=== PATIENT | female | born 1960 | race Caucasian/White ===

== ENCOUNTER 2016-07-19 02:30 | Observation (INO) | payer BC ==
[~2016-07-19] VITALS: Ht 167.6 cm; Wt 116.0 kg
[~2016-07-19 02:30] MED LIST: OXYC1TAB3
--- NOTE | 2016-07-19 03:12 | EMERGENCY ROOM VISIT NOTE ---
History Report prepared by Luis: Dominic Peng Under the Supervision of: Dr. Emily Ontiveros D.O. First contact with patient: 03:02 Chief Complaint: VOMITING Stated Complaint: NAUSEA AND PAIN Nursing Triage Summary: Triage Notes: Patient c/o n/v that began around 2200 last PM. History of Present Illness The patient is a 56 year old female who presents to the Emergency Room with complaints of recurrent vomiting for the past two days. The episodes of nausea & vomiting or preceded by waxing & waning left flank pain. The patient had resolution of her symptoms until 2200 last night. The patient denies pain with urination or diarrhea. Her pain is a similar sensation to past kidney stones. The patient has a history of lithotripsy and follows up with [facility]. Source of History: patient Onset: two days Position: other (GI) Quality: other (vomiting) Timing: other (recurrent) Associated Symptoms: + nausea, No diarrhea, No urinary symptoms Review of Systems See HPI for pertinent positives & negatives. A total of 10 systems reviewed and were otherwise negative. Past Medical & Surgical Medical Problems: (1) Acute cholecystitis Surgical Problems: (1) H/O lithotripsy Family History No pertinent family history Social History Smoking Status: Never Smoker Marital Status: Housing Status: lives with family Current/Historical Medications No Active Prescriptions or Reported Meds Allergies Coded Allergies: No Known Allergies (Verified , 07/19/16) Physical Exam Vital Signs Date Time Temp Pulse Resp B/P Pulse Ox O2 Delivery O2 Flow Rate FiO2 07/19/16 07:37 73 16 154/86 95 Room Air 07/19/16 06:11 79 16 146/93 98 Room Air 07/19/16 03:18 66 18 162/89 97 Room Air 07/19/16 02:34 37.0 69 18 190/114 96 Room Air Physical Exam HEENT: Head - normocephalic and atraumatic Pupils are equal, round, and reactive to light. Extraocular eye muscles are intact, and sclera are anicteric. Nose - moist nasal mucosa without discharge. Mouth - moist buccal mucosa. Oropharynx is nonerythematous and there is no tonsillar exudate or edema noted. Neck: Supple; no JVD, nuchal rigidity, cervical lymphadenopathy. Heart: Regular rate and rhythm. There is a normal S1 and S2 with no murmurs, clicks, or gallops appreciated. Lungs: Clear to auscultation bilaterally with no wheezes, rales, or rhonchi. Abdomen: Soft, completely nontender, nondistended, with good bowel sounds. There are no palpable pulsatile masses or hepatosplenomegaly. There is no guarding, rigidity, or rebound noted. Extremities: No evidence of cyanosis, clubbing, or edema. There are easily palpable peripheral pulses. Skin: warm and dry with good turgor and no rashes. Medical Decision & Procedures ER Provider Diagnostic Interpretation: CT results as stated below per my review and radiologist interpretation: CT ABDOMEN & PELVIS: No urolithiasis. No hydronephrosis. Prominent gallbladder wall edema. No calcified gallstone. Findings raise suspicion for cholecystitis. Correlate with symptoms and consider right upper quadrant ultrasound for further evaluation. No biliary dilation. Liver pancreas spleen and adrenals are unremarkable. Colonic diverticulosis without evidence of diverticulitis. No free fluid. No free air. The bowel is normal caliber. Appendix is normal. Radiologist Martin Sun MD Right upper quadrant ultrasound: Pending Laboratory Results 07/19/16 03:05 Red Blood Count 4.88, Mean Corpuscular Volume 87.3, Mean Corpuscular Hemoglobin 30.1, Mean Corpuscular Hemoglobin Concent 34.5, Mean Platelet Volume 9.1, Neutrophils (%) (Auto) 86.8, Lymphocytes (%) (Auto) 8.2, Monocytes (%) (Auto) 3.8, Eosinophils (%) (Auto) 0.7, Basophils (%) (Auto) 0.2, Neutrophils # (Auto) 8.20, Lymphocytes # (Auto) 0.78, Monocytes # (Auto) 0.36, Eosinophils # (Auto) 0.07, Basophils # (Auto) 0.02 07/19/16 03:05 Test 07/19/16 03:05 07/19/16 04:15 White Blood Count 9.46 K/uL (4.8-10.8) Red Blood Count 4.88 M/uL (4.2-5.4) Hemoglobin 14.7 g/dL (12.0-16.0) Hematocrit 42.6 % (37-47) Mean Corpuscular Volume 87.3 fL (80-100) Mean Corpuscular Hemoglobin 30.1 pg (25-34) Mean Corpuscular Hemoglobin Concent 34.5 g/dl (32-36) Platelet Count 328 K/uL (130-400) Mean Platelet Volume 9.1 fL (7.4-10.4) Neutrophils (%) (Auto) 86.8 % Lymphocytes (%) (Auto) 8.2 % Monocytes (%) (Auto) 3.8 % Eosinophils (%) (Auto) 0.7 % Basophils (%) (Auto) 0.2 % Neutrophils # (Auto) 8.20 K/uL (1.4-6.5) Lymphocytes # (Auto) 0.78 K/uL (1.2-3.4) Monocytes # (Auto) 0.36 K/uL (0.11-0.59) Eosinophils # (Auto) 0.07 K/uL (0-0.5) Basophils # (Auto) 0.02 K/uL (0-0.2) RDW Standard Deviation 42.2 fL (36.4-46.3) RDW Coefficient of Variation 13.1 % (11.5-14.5) Immature Granulocyte % (Auto) 0.3 % Immature Granulocyte # (Auto) 0.03 K/uL (0.00-0.02) Anion Gap 6.0 mmol/L (3-11) Est Creatinine Clear Calc Drug Dose 79.3 ml/min Estimated GFR () 71.9 Estimated GFR (Non- 62.1 BUN/Creatinine Ratio 15.2 (10-20) Calcium Level 8.7 mg/dl (8.5-10.1) Total Bilirubin 0.4 mg/dl (0.2-1) Direct Bilirubin < 0.1 mg/dl (0-0.2) Aspartate Amino Transf (AST/SGOT) 15 U/L (15-37) Alanine Aminotransferase (ALT/SGPT) 27 U/L (12-78) Alkaline Phosphatase 92 U/L (45-117) Total Protein 7.8 gm/dl (6.4-8.2) Albumin 3.7 gm/dl (3.4-5.0) Hepatitis C Antibody Screen NEG (NEG) Urine Color YELLOW Urine Appearance CLEAR (CLEAR) Urine pH 6.5 (4.5-7.5) Urine Specific [place] 1.021 (1.000-1.030) Urine Protein NEG (NEG) Urine Glucose (UA) NEG (NEG) Urine Ketones NEG (NEG) Urine Occult Blood NEG (NEG) Urine Nitrite NEG (NEG) Urine Bilirubin NEG (NEG) Urine Urobilinogen NEG (NEG) Urine Leukocyte Esterase NEG (NEG) Laboratory results per my review. Medications Administered Medications (Trade) Dose Ordered Sig/Maurice Route Start Time Stop Time Status Last Admin Dose Admin Sodium Chloride (Nss 1000ml) 1,000 ml @ 999 mls/hr Q1H1M STAT IV 07/19/16 03:14 07/19/16 04:14 DC 07/19/16 03:20 999 MLS/HR Ondansetron HCl (Zofran Inj) 4 mg NOW STAT IV 07/19/16 03:14 07/19/16 03:15 DC 07/19/16 03:19 4 MG Procedure Medications administered include Zofran IV and NSS IV. ED Course 0305: Past medical records reviewed. The patient was evaluated in room A4b. A complete history and physical exam was performed. IV lock was established. 0314: Zofran 4 mg IV, NSS 1000 ml @ 999 mls/hr. 0450: The patient appears more comfortable. She is heading to CT scan now. 0600: The patient is comfortable. I reviewed laboratory studies and CT findings with the patient. She will soon go for ultrasound. 0700: The patient was signed out to Dr. Recinos at shift change. Medical Decision The patient is a 56 year old female who presents to the ED with vomiting. Differential diagnosis includes kidney stone, obstructive uropathy, colitis, diverticulitis, pyelonephritis. Laboratory interpretation: No leukocytosis, stable H&H, normal renal function, glucose 132, normal LFTs. Normal urinalysis. This is a 56-year-old female patient presents to the emergency department with left flank pain and vomiting. Patient states that the onset of nausea and vomiting was very sudden and 2 days ago. She then noticed some intermittent episodes of left flank discomfort. The symptoms seem to have subsided until they returned again tonight. The patient explains that she had similar symptoms with previous kidney stones. Urinalysis was obtained and was negative for blood, however the patient stated that she remain concerned about a kidney stone. She went for CT scan of the abdomen/pelvis which showed no evidence of a kidney stone but there was some concern for acute cholecystitis. The patient will go for an ultrasound of the gallbladder to confirm this. I reexamined the patient at this time. She has no reproducible discomfort in the right upper quadrant of the abdomen. The case was signed out to Dr. Recinos at change of shift. Impression Primary Impression: Flank pain Additional Impression: Vomiting Scribe Attestation The scribe's documentation has been prepared under my direction and personally reviewed by me in its entirety. I confirm that the note above accurately reflects all work, treatment, procedures, and medical decision making performed by me. Departure Information Dispostion Still a Patient Prescriptions No Active Prescriptions or Reported Meds Referrals Pretty Higuera M.D. (PCP) Patient Instructions My [facility] Problem Qualifiers
[2016-07-19] MEDS ORDERED: ONDANSETRON INJ 2 MG/ML 2 ML VIAL IV STA (03:14)
[2016-07-19] MEDS ORDERED: SODIUM CHLORIDE 0.9% 1000ML 1,000 ML IV STA (03:14)
[2016-07-19 03:24] LABS: BASO % 0.2 %; BASO ABS # 0.02 K/uL (0-0.2); COMPLETE YES; EOS % 0.7 %; HEMATOCRIT 42.6 % (37-47); IG% 0.3 %; LYMPH % 8.2 %; LYMPH ABS # 0.78 K/uL (1.2-3.4); MEAN CELL VOLUME 87.3 fL (80-100); MEAN CORPUSCULAR HEMOGLOBIN 30.1 pg (25-34); MEAN CORPUSCULAR HGB CONC 34.5 g/dl (32-36); MEAN PLATELET VOLUME 9.1 fL (7.4-10.4); MONO % 3.8 %; NEUT % 86.8 %; PLATELET COUNT 328 K/uL (130-400); RED BLOOD COUNT 4.88 M/uL (4.2-5.4); WHITE BLOOD COUNT 9.46 K/uL (4.8-10.8)
[2016-07-19 03:40] LABS: ALT/SGPT 27 U/L (12-78); AST/SGOT 15 U/L (15-37); BLOOD UREA NITROGEN 15 mg/dl (7-18); BUN/CREATININE RATIO 15.2 (10-20); CALCIUM 8.7 mg/dl (8.5-10.1); CARBON DIOXIDE 29 mmol/L (21-32); CHLORIDE 109 mmol/L (98-107); GLUCOSE 132 mg/dl (70-99); POTASSIUM 3.7 mmol/L (3.5-5.1); SODIUM 144 mmol/L (136-145)
[2016-07-19 03:43] LABS: ALKALINE PHOSPHATASE 92 U/L (45-117)
[2016-07-19 04:28] LABS: URINE APPEARANCE CLEAR (CLEAR); URINE BILIRUBIN NEG (NEG); URINE COLOR YELLOW; URINE NITRITE NEG (NEG); URINE PH 6.5 (4.5-7.5); URINE SPECIFIC GRAVITY 1.021 (1.000-1.030); UROBILINOGEN NEG (NEG)
[2016-07-19 04:32] LABS: MANUAL MICROSCOPIC REQUIRED? NO; REVIEW REQ? NO
--- NOTE | 2016-07-19 07:33 | DIAGNOSTIC IMAGING REPORT ---
ABDOMEN AND PELVIS CT WITHOUT CONTRAST CT DOSE: 2272.16 mGy.cm HISTORY: Flank pain eval for left sided stone TECHNIQUE: Multiaxial CT images of the abdomen and pelvis were performed without the use of intravenous and oral contrast according to the standard department stone protocol. COMPARISON STUDY: 03/17/2016 FINDINGS: Lung bases are clear. Liver spleen and pancreas are unremarkable. Moderate edematous change of the gallbladder wall. No well-defined gallstones. Bowel pattern overall is nonobstructive. Mild sigmoid diverticulosis. No evidence for acute diverticulitis. Bladder is midline. IMPRESSION: 1. No evidence for an obstructing urinary tract calculus. 2. Moderate gallbladder wall edema. Right upper quadrant ultrasonography is suggested to exclude cholecystitis Electronically signed by: Emiliano Oliveira M.D. 07/19/2016 7:31 AM Dictated Date/Time: 07/19/2016 7:29 AM
--- NOTE | 2016-07-19 07:37 | DIAGNOSTIC IMAGING REPORT ---
ULTRASOUND RIGHT UPPER QUADRANT ABDOMEN CLINICAL HISTORY: Right upper quadrant abdominal pain. COMPARISON STUDY: Abdominal CT dated 07/19/2016. TECHNIQUE: Real-time, grayscale, and color flow sonography of the right upper quadrant of the abdomen was performed. Images are reviewed in the transverse and longitudinal planes. FINDINGS: Liver: The liver is enlarged and demonstrates heterogeneously increased echotexture consistent with severe hepatic steatosis. Note that this degrades acoustic penetration of the liver. There is no intrahepatic biliary ductal dilatation. The main portal vein is patent. Gallbladder: Shadowing calcified gallstones are identified. The gallbladder wall is thickened measuring up to 6 mm. A sonographic Walsh's sign is reportedly absent. No pericholecystic fluid is seen. The common bile duct measures up to 0.5 cm in diameter. Pancreas: Visualized portions of the pancreatic head and body are normal in appearance. Right kidney: Survey images of the right kidney demonstrate cortical atrophy. There is no hydronephrosis. Ascites: None. IMPRESSION: 1. There are calcified gallstones and the gallbladder wall is markedly thickened. When correlated with today's abdominal CT scan the findings are consistent with acute cholecystitis. Surgical consultation is advised. 2. Hepatomegaly and severe hepatic steatosis. Electronically signed by: Balwinder Boyce M.D. 07/19/2016 7:36 AM Dictated Date/Time: 07/19/2016 7:33 AM
--- NOTE | 2016-07-19 08:47 | History and Physical ---
History & Physical Date & Time of Service: Jul 19, 2016 at 08:40 Chief Complaint: Nausea And Pain Primary Care Physician: Pretty Hiugera M.D. History of Present Illness Source: patient, family The patient is a 56 year old female who presents to the Emergency Room with complaints of recurrent vomiting for the past two days. The episodes of nausea & vomiting or preceded by waxing & waning left flank pain. The patient had resolution of her symptoms until 2200 last night. The patient denies pain with urination or diarrhea. Her pain is a similar sensation to past kidney stones. The patient has a history of lithotripsy and follows up with [facility]. CT scan and U/S showed acute cholecystitis. Past Medical/Surgical History Surgical Problems: (1) H/O lithotripsy Status: Chronic Family History No pertinent family history Social History Smoking Status: Never Smoker Smokeless Tobacco Use: No Alcohol Use: none Drug Use: none Marital Status: Multi-Drug Resistant Organisms History of MDRO: No Allergies Coded Allergies: No Known Allergies (Verified , 07/19/16) Home Medications No Active Prescriptions or Reported Meds Review of Systems Constitutional: No chills, No fatigue, No fever, No problem reported, No sweats , No weakness, No weight loss Eyes: No diplopia, No discharge, No eye pain, No problem reported, No redness, No worsening of vision ENT: No dental problems, No hearing loss, No nasal symptoms, No problem reported, No sore throat, No tinnitus, No trouble swallowing, No unusual epistaxis Respiratory: No cough, No dyspnea at rest, No dyspnea on exertion, No hemoptysis, No problem reported, No shortness of breath, No sputum, No wheezing Cardiovascular: No PND, No chest pain, No claudication, No edema, No orthopnea , No palpitations, No problem reported Abdomen: + nausea, + pain, + vomiting Musculoskeletal: No calf pain, No joint pain, No muscle pain, No problem reported, No swelling Genitourinary - Female: No dysmenorrhea, No dysuria, No hematuria, No menorrhagia, No metrorrhagia, No , No problem reported, No rash, No urinary frequency, No urinary incontinence, No urinary retention, No urinary urgency, No vaginal bleeding, No vaginal discharge, No vaginal itching, No vulvodynia Neurologic: No balance problems, No memory loss, No numbness/tingling, No paralysis, No problem reported, No vertigo, No weakness Psychiatric: No anhedonism, No anxiety, No depression symptoms, No insomnia, No problem reported, No substance abuse Endocrine: No excessive thirst, No excessive urination, No fatigue, No problem reported Hematologic / Lymphatic: No abnormal bleeding/bruising, No clotting problems, No night sweats, No problem reported, No swollen lymph nodes Physical Exam Vital Signs Date Time Temp Pulse Resp B/P Pulse Ox O2 Delivery O2 Flow Rate FiO2 07/19/16 07:37 73 16 154/86 95 Room Air 07/19/16 06:11 79 16 146/93 98 Room Air 07/19/16 03:18 66 18 162/89 97 Room Air 07/19/16 02:34 37.0 69 18 190/114 96 Room Air General Appearance: WD/WN Head: normocephalic Eyes: normal inspection ENT: normal ENT inspection Neck: supple, no JVD Respiratory/Chest: chest non-tender, lungs clear, normal breath sounds Cardiovascular: regular rate, rhythm, no edema, no gallop, no JVD Abdomen/GI: normal bowel sounds, non tender, soft, no organomegaly Back: normal inspection Extremities/Musculoskelatal: normal inspection, no calf tenderness, normal capillary refill Neurologic/Psych: electromatic typist II-XII nml as tested, no motor/sensory deficits, alert Diagnostics Laboratory Results Results Past 24 Hours Test 07/19/16 03:05 07/19/16 04:15 Range/Units White Blood Count 9.46 4.8-10.8 K/uL Red Blood Count 4.88 4.2-5.4 M/uL Hemoglobin 14.7 12.0-16.0 g/dL Hematocrit 42.6 37-47 % Mean Corpuscular Volume 87.3 80-100 fL Mean Corpuscular Hemoglobin 30.1 25-34 pg Mean Corpuscular Hemoglobin Concent 34.5 32-36 g/dl Platelet Count 328 130-400 K/uL Mean Platelet Volume 9.1 7.4-10.4 fL Neutrophils (%) (Auto) 86.8 % Lymphocytes (%) (Auto) 8.2 % Monocytes (%) (Auto) 3.8 % Eosinophils (%) (Auto) 0.7 % Basophils (%) (Auto) 0.2 % Neutrophils # (Auto) 8.20 1.4-6.5 K/uL Lymphocytes # (Auto) 0.78 1.2-3.4 K/uL Monocytes # (Auto) 0.36 0.11-0.59 K/uL Eosinophils # (Auto) 0.07 0-0.5 K/uL Basophils # (Auto) 0.02 0-0.2 K/uL RDW Standard Deviation 42.2 36.4-46.3 fL RDW Coefficient of Variation 13.1 11.5-14.5 % Immature Granulocyte % (Auto) 0.3 % Immature Granulocyte # (Auto) 0.03 0.00-0.02 K/uL Sodium Level 144 136-145 mmol/L Potassium Level 3.7 3.5-5.1 mmol/L Chloride Level 109 98-107 mmol/L Carbon Dioxide Level 29 21-32 mmol/L Anion Gap 6.0 3-11 mmol/L Blood Urea Nitrogen 15 7-18 mg/dl Creatinine 1.00 0.60-1.20 mg/dl Est Creatinine Clear Calc Drug Dose 79.3 ml/min Estimated GFR () 71.9 Estimated GFR (Non- 62.1 BUN/Creatinine Ratio 15.2 10-20 Random Glucose 132 70-99 mg/dl Calcium Level 8.7 8.5-10.1 mg/dl Total Bilirubin 0.4 0.2-1 mg/dl Direct Bilirubin < 0.1 0-0.2 mg/dl Aspartate Amino Transf (AST/SGOT) 15 15-37 U/L Alanine Aminotransferase (ALT/SGPT) 27 12-78 U/L Alkaline Phosphatase 92 45-117 U/L Total Protein 7.8 6.4-8.2 gm/dl Albumin 3.7 3.4-5.0 gm/dl Urine Color YELLOW Urine Appearance CLEAR CLEAR Urine pH 6.5 4.5-7.5 Urine Specific [place] 1.021 1.000-1.030 Urine Protein NEG NEG Urine Glucose (UA) NEG NEG Urine Ketones NEG NEG Urine Occult Blood NEG NEG Urine Nitrite NEG NEG Urine Bilirubin NEG NEG Urine Urobilinogen NEG NEG Urine Leukocyte Esterase NEG NEG Diagnostic Radiology CT scan-IMPRESSION: 1. No evidence for an obstructing urinary tract calculus. 2. Moderate gallbladder wall edema. Right upper quadrant ultrasonography is suggested to exclude cholecystitis U/S-IMPRESSION: 1. There are calcified gallstones and the gallbladder wall is markedly thickened. When correlated with today's abdominal CT scan the findings are consistent with acute cholecystitis. Surgical consultation is advised. 2. Hepatomegaly and severe hepatic steatosis. Impression Assessment and Plan IMP Acute cholecystitis Plan, admitted to hospital. IV fluid, antibiotic, control pain, pt will have laparoscopic cholecystectomy, possible open or cholangiogram tomorrow, D/W benefits, risks and alternatives of the procedure, the risks- infection, bleeding, injury CBD, Bowel, AL DVT, , incisional hernia, pt understood, she and her agree with the plan. ASA Classification: ASA Class II VTE Prophylaxis VTE Risk Assessment Done? Y/N: Yes Risk Level: Low Given or contraindicated: SCD's
[2016-07-19] MEDS ORDERED: OXYCODONE/ACETAMINOPHEN 5-325 TAB PO PRN (09:00)
[2016-07-19] MEDS ORDERED: HYDROmorphone INJ 0.5 MG/0.5 ML SYR IV PRN (09:00)
[2016-07-19] MEDS ORDERED: ONDANSETRON INJ 2 MG/ML 2 ML VIAL IV PRN (09:00)
[2016-07-19] MEDS ORDERED: IV FLUIDS COMPLETED PRN (09:15)
[2016-07-19 09:38] VITALS: BP_SYST 145; BP_SYST 170; BP_DIAS 86; BP_DIAS 94; PULSE 60; PULSE 63; TEMP 36.4; O2SAT 97; Ht 167.6 cm; Wt 116.0 kg
[2016-07-19] MEDS: D5W AND 1/2NSS + 20MEQ KCL 1,000 ML IV SCH ×2 (10:29→22:42)
[2016-07-19] MEDS: PIPERACILL/TAZOBAC IV 3.375 GM in DEXTROSE 5% 100ML 100 ML IV SCH ×3 (11:45→23:36)
--- NOTE | 2016-07-19 13:45 | Anesthesiology Progress Note ---
Pre-OP Anesthesia Assessment Date of Note Jul 19, 2016. Review patient information reviewed, chart reviewed, labs reviewed, acceptable for surgery Notes I saw this pt for pre-op eval for lap alex by Dr. Thornton tomorrow. She presented w/ N/V and was found on CT and U/S to have acute cholecystitis. Imaging also showed severe hepatomegaly and hepatic steatosis. LFTs were normal. The pt says she now feels fine. PMH includes just morbid obesity and kidney stones. She said she was noted to have a heart murmur many years ago and had an echo which was normal. PSH of just lithotripsy. No anesthetic complications noted. She takes no meds at home. She is able to achieve > 4 METs w/out CP or SOB. On exam , she is sitting up in bed in NAD, awake and alert. Airway exam shows full dentition w/ MP3 but is otherwise reassuring. Lungs clear. 2/6 systolic murmur loudest at RUSB but heard throughout. Afebrile w/ stable vitals. Labs normal. She's appropriate for surgery. I consented her for GA. She'll be NPO after midnight. I've ordered a pre-op EKG given her age > 50 and the need for GA. I don't think she requires echo eval of the murmur pre-op given her reasonable functional capacity w/out symptoms and since it is highly unlikely that it would change our management.
[2016-07-19 15:04] VITALS: BP 154/90; PULSE 69; TEMP 36.9; O2SAT 96
--- NOTE | 2016-07-19 15:37 | DIAGNOSTIC IMAGING REPORT ---
CHEST 1 VW FRONT-NOT PORTABLE CLINICAL HISTORY: pre-op COMPARISON STUDY: 02/13/2010 FINDINGS: The bones soft tissues and hemidiaphragms are normal. The cardiomediastinal silhouette is normal. The lungs are clear. The pulmonary vasculature is normal. IMPRESSION: Negative chest. Electronically signed by: Emiliano Oliveira M.D. 07/19/2016 3:35 PM Dictated Date/Time: 07/19/2016 3:32 PM
[2016-07-19 15:50] VITALS: O2SAT 96
[2016-07-19 23:11] VITALS: BP 137/86; PULSE 62; TEMP 36.8; O2SAT 93
[2016-07-20] VITALS (7 sets, daily range): BP systolic 133–178; BP diastolic 75–103; PULSE 65–96; TEMP 36.6–36.8; O2SAT 92–96
[2016-07-20] MEDS: PIPERACILL/TAZOBAC IV 3.375 GM in DEXTROSE 5% 100ML 100 ML IV SCH (05:32)
[2016-07-20 07:45] LABS: BASO % 0.4 %; BASO ABS # 0.02 K/uL (0-0.2); COMPLETE YES; EOS % 3.9 %; HEMATOCRIT 37.3 % (37-47); IG% 0.2 %; LYMPH % 30.5 %; LYMPH ABS # 1.56 K/uL (1.2-3.4); MEAN CELL VOLUME 86.3 fL (80-100); MEAN CORPUSCULAR HEMOGLOBIN 28.7 pg (25-34); MEAN CORPUSCULAR HGB CONC 33.2 g/dl (32-36); MEAN PLATELET VOLUME 8.8 fL (7.4-10.4); MONO % 11.7 %; NEUT % 53.3 %; PLATELET COUNT 280 K/uL (130-400); RED BLOOD COUNT 4.32 M/uL (4.2-5.4); WHITE BLOOD COUNT 5.12 K/uL (4.8-10.8)
[2016-07-20 08:22] LABS: ALB/GLOB RATIO 0.8 (0.9-2); BUN/CREATININE RATIO 10.1 (10-20); CALCIUM 8.2 mg/dl (8.5-10.1); CREATININE 0.84 mg/dl (0.60-1.20); POTASSIUM 3.5 mmol/L (3.5-5.1)
[2016-07-20] MEDS: D5W AND 1/2NSS + 20MEQ KCL 1,000 ML IV SCH ×2 (10:36→23:32)
[2016-07-20] MEDS ORDERED: FENTANYL CITRATE INJ 50 MCG/1 ML 2 ML VIAL ONE ×2 (10:38)
[2016-07-20] MEDS ORDERED: LARYING-O-JET KIT (LTA) EXT ONE ×2 (10:38)
[2016-07-20] MEDS ORDERED: MIDAZOLAM HCL 1 MG/ML 2ML VIAL ONE (10:38)
[2016-07-20] MEDS ORDERED: GLYCOPYRROLATE INJ 0.2 MG/ML VIAL ONE (10:38)
[2016-07-20] MEDS ORDERED: ONDANSETRON INJ 2 MG/ML 2 ML VIAL ONE (10:38)
[2016-07-20] MEDS ORDERED: DEXAMETHASONE SOD INJ 4 MG/ML VIAL ONE (10:38)
[2016-07-20] MEDS ORDERED: ROCURONIUM BROMIDE 10 MG/ML 5 ML VIAL ONE (10:38)
[2016-07-20] MEDS ORDERED: KETOROLAC TROMETHAMINE 30 MG/ML VIAL ONE (10:38)
[2016-07-20] MEDS ORDERED: PROPOFOL IV EMULSION 10 MG/ML 20 ML VIAL IV ONE (10:38)
[2016-07-20] MEDS ORDERED: LIDOCAINE HCL 2% 2 ML VIAL (20MG/ML) ONE (10:38)
[2016-07-20] MEDS ORDERED: NEOSTIGMINE METHYLSULFATE 5 MG/5 ML SYR ONE (10:38)
[2016-07-20] MEDS ORDERED: LIDOCAINE HCL 1% 20 ML VIAL ONE (10:49)
[2016-07-20] MEDS ORDERED: BACITRACIN OINT 15 GM TUBE ONE (10:50)
[2016-07-20] MEDS ORDERED: BUPIVACAINE 0.5 % 5 MG/1 ML MPF 30ML VIAL ONE (10:50)
--- NOTE | 2016-07-20 11:02 | Surgery Progress Note ---
Surgery Progress Note Date of Service Jul 20, 2016. Subjective Post OP Day: HD # 1 + pain controlled, No SOB, No chest pain, No complaints, No feeling well, No nausea, No vomiting Occasional RUQ pain Objective Vital Signs: Date Time Temp Pulse Resp B/P Pulse Ox O2 Delivery O2 Flow Rate FiO2 07/20/16 07:30 Room Air 07/20/16 07:13 36.6 67 18 133/75 94 Room Air 07/19/16 23:35 Room Air 07/19/16 23:11 36.8 62 18 137/86 93 Room Air 07/19/16 15:50 96 Room Air 07/19/16 15:04 36.9 69 16 154/90 96 Room Air General Appearance: WD/WN, no apparent distress Head: normocephalic, atraumatic Neck: trachea midline Respiratory/Chest: no respiratory distress, no accessory muscle use Abdomen: non distended, soft, + tenderness (RUQ) Laboratory Results: Results Past 24 Hours Test 07/20/16 07:04 Range/Units White Blood Count 5.12 4.8-10.8 K/uL Red Blood Count 4.32 4.2-5.4 M/uL Hemoglobin 12.4 12.0-16.0 g/dL Hematocrit 37.3 37-47 % Mean Corpuscular Volume 86.3 80-100 fL Mean Corpuscular Hemoglobin 28.7 25-34 pg Mean Corpuscular Hemoglobin Concent 33.2 32-36 g/dl Platelet Count 280 130-400 K/uL Mean Platelet Volume 8.8 7.4-10.4 fL Neutrophils (%) (Auto) 53.3 % Lymphocytes (%) (Auto) 30.5 % Monocytes (%) (Auto) 11.7 % Eosinophils (%) (Auto) 3.9 % Basophils (%) (Auto) 0.4 % Neutrophils # (Auto) 2.73 1.4-6.5 K/uL Lymphocytes # (Auto) 1.56 1.2-3.4 K/uL Monocytes # (Auto) 0.60 0.11-0.59 K/uL Eosinophils # (Auto) 0.20 0-0.5 K/uL Basophils # (Auto) 0.02 0-0.2 K/uL RDW Standard Deviation 43.4 36.4-46.3 fL RDW Coefficient of Variation 13.6 11.5-14.5 % Immature Granulocyte % (Auto) 0.2 % Immature Granulocyte # (Auto) 0.01 0.00-0.02 K/uL Sodium Level 139 136-145 mmol/L Potassium Level 3.5 3.5-5.1 mmol/L Chloride Level 106 98-107 mmol/L Carbon Dioxide Level 24 21-32 mmol/L Anion Gap 9.0 3-11 mmol/L Blood Urea Nitrogen 9 7-18 mg/dl Creatinine 0.84 0.60-1.20 mg/dl Est Creatinine Clear Calc Drug Dose 94.5 ml/min Estimated GFR () 88.8 Estimated GFR (Non- 76.6 BUN/Creatinine Ratio 10.1 10-20 Random Glucose 108 70-99 mg/dl Calcium Level 8.2 8.5-10.1 mg/dl Total Bilirubin 0.7 0.2-1 mg/dl Aspartate Amino Transf (AST/SGOT) 17 15-37 U/L Alanine Aminotransferase (ALT/SGPT) 29 12-78 U/L Alkaline Phosphatase 77 45-117 U/L Total Protein 6.6 6.4-8.2 gm/dl Albumin 2.9 3.4-5.0 gm/dl Globulin 3.7 2.5-4.0 gm/dl Albumin/Globulin Ratio 0.8 0.9-2 Lipase 147 73-393 U/L Assessment & Plan Acute Cholecystitis - vitals stable - afebrile - No leukocytosis - LFTs within normal limits PLAN: Plan for OR today for laparoscopic Cholecystectomy Continue current orders and NPO until surgery
[2016-07-20] MEDS ORDERED: CEFAZOLIN IV 2,000 MG/60 ML D5W IV ONE (12:12)
--- NOTE | 2016-07-20 12:14 | History & Physical Bridge Note ---
H&P Re-Evaluation Bridge Note: I have examined the patient, reviewed the History & Physical and in the interval since the performance of the History & Physical I have noted the following changes of clinical significance: No changes noted
[2016-07-20] MEDS ORDERED: LABETALOL HCL IV 5 MG/ML 20ML IV PRN (12:30)
[2016-07-20] MEDS ORDERED: ONDANSETRON INJ 2 MG/ML 2 ML VIAL IV PRN ×2 (12:30→13:15)
[2016-07-20] MEDS ORDERED: KETOROLAC TROMETHAMINE 30 MG/ML VIAL IV. PRN ×2 (12:30→13:15)
[2016-07-20] MEDS ORDERED: HYDROmorphone INJ 1 MG/ML SYR IV PRN (12:30)
[2016-07-20] MEDS ORDERED: ATROPINE SULFATE 0.1 MG/ML 5ML SYR IV PRN ×2 (12:30→13:15)
[2016-07-20] MEDS ORDERED: HYDROmorphone INJ 2 MG/ML SYR/VIAL IV PRN (13:15)
[2016-07-20] MEDS ORDERED: EpHEDrine SULFATE INJ 50 MG/ML AMP ONE (13:36)
--- NOTE | 2016-07-20 14:25 | [facility] Post Operative Brief Note ---
Immediate Operative Summary Operative Date Jul 20, 2016. Pre-Operative Diagnosis Acute Cholecystitis cholithiasis Post-Operative Diagnosis Same as Preop Procedure(s) Performed Laparoscopic Cholecystectomy Surgeon Dr. Thornton Irs Agent Surgeon(s) None Estimated Blood Loss 10 ml Findings acute cholecystitis, cholelithiasis Fluids (cc crystalloids) 900ml Specimens A. Gall Bladder Drains none Anesthesia general Complication(s) None Disposition Recovery Room / PACU
[2016-07-20] MEDS ORDERED: OXYC-57 PO ×2 (14:28→15:47)
--- NOTE | 2016-07-20 14:34 | Discharge Instructions ---
Discharge Instructions Admission Reason for Admission: Acute Cholecystitis Discharge Discharge Diagnosis / Problem: S/P laparoscopic cholecystectomy Discharge Goals Goal(s): Decrease discomfort, Improve function Activity Recommendations Activity Limitations: per Instructions/Follow-up section Lifting Limitations: no more than 25 pounds Exercise/Sports Limitations: gradually increase as tolerated May Resume Sexual Activity: when tolerated Shower/Bathe: may shower/bathe in 3 days Driving or Machine Use: resume 3 days after discharge . Instructions / Follow-Up Instructions / Follow-Up keep the dressing on for 4 days, she can take a shower on 07/24/2016. no driving while taking pain medicine.follow up 1 week, . Current Hospital Diet Patient's current hospital diet: Clear Liquid Diet Discharge Diet Recommended Diet: Regular Diet Procedures Procedures Performed: Laparoscopic Cholecystectomy Pending Studies Studies pending at discharge: no Medical Emergencies . Who to Call and When: Medical Emergencies: If at any time you feel your situation is an emergency, please call 911 immediately. . Non-Emergent Contact Non-Emergency issues call your: Primary Care Provider Contact Number: [phone] Call Non-Emergent contact if: you have a fever, temperature is above 100.5, your pain is not controlled, your pain is worsening, wound has increased drainage, wound has increased redness . "Provider Documentation" section prepared by Rashid Thornton. VTE Core Measure Inpt VTE Proph given/why not?: SCD's
--- NOTE | 2016-07-20 14:51 | Anesthesiology Progress Note ---
Anesthesia Post Op Note Date & Time Jul 20, 2016 at 14:51 Vital Signs Pain Intensity: 0 Vital Signs Past 12 Hours Date Time Temp Pulse Resp B/P Pulse Ox O2 Delivery O2 Flow Rate FiO2 07/20/16 14:40 37.0 59 14 146/85 99 Nasal Cannula 3 07/20/16 14:30 60 14 144/84 99 Mask 10 07/20/16 14:20 71 14 128/92 96 Mask 10 07/20/16 14:16 37.2 61 14 135/84 92 Mask 10 07/20/16 07:30 Room Air 07/20/16 07:13 36.6 67 18 133/75 94 Room Air Notes Mental Status: alert / awake / arousable, participated in evaluation Pt Amnestic to Procedure: Yes Nausea / Vomiting: adequately controlled Pain: adequately controlled Airway Patency, RR, SpO2: stable & adequate BP & HR: stable & adequate Hydration State: stable & adequate Anesthetic Complications: no major complications apparent
--- NOTE | 2016-07-20 14:59 | OPERATIVE REPORT ---
DATE OF OPERATION: 07/20/2016 PREOPERATIVE DIAGNOSIS: Acute cholecystitis, cholelithiasis. POSTOPERATIVE DIAGNOSIS: Same. PROCEDURE: Laparoscopic cholecystectomy. SURGEON: Dr. Rashid Thornton. ANESTHESIA: General. ESTIMATED BLOOD LOSS: About 10 mL. FINDING: Acute cholecystitis with gallstones. COMPLICATIONS: None. IV FLUIDS: 900 mL. INDICATIONS FOR THE PROCEDURE: This is a 56-year-old female who presented to the ED did with a 1-day history of right upper quadrant pain and the patient had ultrasound showing acute cholecystitis, cholelithiasis and patient required to do laparoscopic cholecystectomy, possible open, possible cholangiogram. I did talk to the patient about the benefit and risk alternate procedure. I indicated the risks may include but not limited such as bleeding, infection, injury to common bile duct, injury to bowel, myocardial infarction, stroke, DVT, even , incisional hernia. The patient understands. She signed informed consent and I answered all questions. OPERATION AND FINDINGS: DETAILS OF PROCEDURE: We brought the patient to the OR, put the patient in the supine position. The patient received SCD on bilateral legs to prevent DVT. Also, the patient received 2 grams Ancef IV for prophylactic antibiotic. The patient received general anesthesia without difficulty. The abdomen was prepped and draped in routine sterile fashion. After a timeout, I injected local anesthesia by using 1% lidocaine mixed with 0.5% Marcaine around the umbilical area, made a small incision just above umbilical, opened fascia and opened peritoneum under direct vision. I put a Mirza trocar in, connected to CO2 to create pneumoperitoneum. Flow rate at DVT is 6 liter per minute. Pressure not more than 14 mmHg. Once we get a nice pneumoperitoneum and then we put another 3.5 mm trocar on the right upper quadrant. Once all trocars in I put 10 mm camera in, looked around the abdomen shows no more findings on the stomach, small bowel, large bowel, liver; however, there was some omentum covering the gallbladder showing gallbladder wall with significant inflammation and edema, wall thickening confirming the patient had acute cholecystitis. Once all trocars in we put grasper in and hold the base of the gallbladder, put direction to the diaphragm and put another grasper in to hold the pouch over the gallbladder, put the latter to expose the triangle of Calot. The cystic duct was identified and mobilized and I put two 5 mm metal clips on the proximal cystic duct, one on the distal cystic duct then I used scissor transection cystic duct. Rechecked and no leak, no bleeding and the cystic artery was identified and mobilized. I put two 5 mm metal clips on the proximal cystic, 1 on the distal cystic artery and used scissor transection cystic artery. Rechecked no active bleeding. Then I used Bovie to take down the gallbladder from the liver bed without difficulty. Then I put catch bag in to pull out the gallbladder through the catch bag. Then we reinserted Mirza trocar in connected to CO2 to create pneumoperitoneum. Again looked around the abdomen, no active bleeding, no bile leak from the liver bed. Then we removed all trocar under direct vision. No active bleeding from trocar sites. Then we closed the umbilical incision, fascial layer by using #1 Vicryl [id number] x2, closed subcutaneous layer by using 2-0 Vicryl, closed skin by using 4-0 Vicryl. Then another 3.5 mm trocar site closed skin by using 4-0 Vicryl. We put the dressing on. The patient tolerated the procedure well. All the instrument, needle and sponge counts correct x2 at the end of the case. The specimen sent to pathology. Before and after the procedure, I did talk to the patient about the postop care instructions. The patient understands. I attest to the content of the Intraoperative Record and any orders documented therein. Any exceptio ns are noted below.
--- NOTE | 2016-07-20 15:22 | DISCHARGE SUMMARY ---
DATE OF DISCHARGE: 07/20/2016. ADMITTING DIAGNOSIS: Acute cholecystitis, cholelithiasis. POSTOPERATIVE DIAGNOSIS: Same. OPERATION: Laparoscopic cholecystectomy. SURGEON: Dr. Rashid Thornton. DETAILS OF DISCHARGE SUMMARY: This is 56-year-old female who presented to the ED with right upper quadrant pain. The patient had ultrasound showed acute cholecystitis, cholelithiasis. The patient was admitted to the hospital overnight and given IV fluids, IV antibiotics and comfort for the pain. The patient feels better in the morning. We decided to take the patient to the OR. In the OR we did laparoscopic cholecystectomy. The patient tolerated the procedure well. After the procedure the patient was transferred to the recovery room in stable condition. PHYSICAL EXAMINATION: VITAL SIGNS: Temperature is 36.6, heart rate 67, respiratory rate 18, blood pressure 136/75. O2 saturation 94% on room air. GENERAL: The patient is alert, awake, oriented x3. HEAD, EYES, EARS, NOSE, AND THROAT: Within normal limitation. NECK: No JVD. CHEST: Bilateral lung sounds clear. NEUROLOGIC EXAMINATION: Intact. HEART: Normal S1, S2. No murmur. ABDOMEN: Soft, no distention. All dressings intact. Good comfort incision pain. EXTREMITIES: No edema. The patient will discharge home once patient meets discharge criteria. I gave the patient postop care instructions. The patient understands. We will follow up the patient in 1 week.
[2016-07-20] MEDS ORDERED: NURSING VERBAL MED ORDER ONE (23:45)
[2016-07-21 03:36] VITALS: BP 127/81; PULSE 74; TEMP 36.8; O2SAT 91
[2016-07-21] MEDS ORDERED: CEFAZOLIN IV 2,000 MG/60 ML D5W IV ONE (06:00)
[2016-07-21 08:06] VITALS: BP 137/87; PULSE 66; TEMP 36.8; O2SAT 93
--- NOTE | 2016-07-21 08:50 | Surgery Progress Note ---
Surgery Progress Note Date of Service Jul 21, 2016. Subjective Post OP Day: 1 (s/p laparoscopic cholecystectomy) + diet (tolerating full liquids), + feeling well, + pain controlled, No SOB, No ambulating, No chest pain, No complaints, No nausea, No vomiting had nausea last evening, now resolved and feeling much better Objective Vital Signs: Date Time Temp Pulse Resp B/P Pulse Ox O2 Delivery O2 Flow Rate FiO2 07/21/16 08:06 36.8 66 19 137/87 93 Room Air 07/21/16 03:36 36.8 74 17 127/81 91 Room Air 07/20/16 23:50 36.8 82 16 134/84 92 Room Air 07/20/16 23:30 Room Air 07/20/16 19:00 36.8 83 18 136/86 95 07/20/16 17:04 36.8 72 18 178/102 95 Room Air 07/20/16 16:19 36.7 69 166/99 07/20/16 15:55 65 18 162/103 96 Nasal Cannula 2.0 07/20/16 15:20 Nasal Cannula 2.0 07/20/16 15:20 Nasal Cannula 2.0 07/20/16 15:00 36.8 96 16 155/84 96 Nasal Cannula 2.0 07/20/16 14:50 63 14 147/89 97 Nasal Cannula 3 07/20/16 14:40 37.0 59 14 146/85 99 Nasal Cannula 3 07/20/16 14:30 60 14 144/84 99 Mask 10 07/20/16 14:20 71 14 128/92 96 Mask 10 07/20/16 14:16 37.2 61 14 135/84 92 Mask 10 General Appearance: WD/WN, no apparent distress Head: normocephalic, atraumatic Respiratory/Chest: no respiratory distress, no accessory muscle use Abdomen: non distended, soft, + tenderness (very mild tenderness, appropriate post-op) Incision(s): clean (dressings clean and dry) Extremities: normal range of motion Assessment & Plan POD # 1 s/p laparoscopic cholecystectomy - avss - nausea resolved - abdominal pain minimal, controlled with oral Percocet - tolerating diet - ambulating and urinating without difficulty PLAN: Discharge today Discharge instructions given Follow-up in surgical office in 1 week, call [phone] Acute Cholecystitis - vitals stable - afebrile - No leukocytosis - LFTs within normal limits PLAN: Plan for OR today for laparoscopic Cholecystectomy Continue current orders and NPO until surgery
[2016-07-21 09:47] VITALS: BP 137/87; PULSE 66; TEMP 36.8; O2SAT 93
== END 2016-07-21 10:33 | disposition home or self-care (01) ==
LOC: ENRESERVTM → ENRESERVDT → C.EDB 02:31 → C.MSW 08:51
PROVIDERS: ADMIT Surgery; ATTEND Surgery
DX: K80.00 Calculus of gallbladder with acute cholecystitis without obstruction (principal)

== ENCOUNTER 2024-04-12 20:21 | Inpatient (IN) ==
[2024-04-12 21:12] LABS: iSTAT Creatinine 2.6 mg/dl (0.6-1.3); iSTAT Hemoglobin 11.6 g/dl (12.0-16.0); iSTAT Ionized Calcium 1.14 mmol/l (1.12-1.32); iSTAT Potassium 3.1 mmol/L (3.3-5.0)
--- NOTE | 2024-04-12 21:19 | Emergency Department Note ---
History of Present Illness General Chief complaint: Illness Stated complaint: NOT EATING, DIGESTIVE PROBLEM, JUST OUT OF SURG Time Seen by Provider: 04/12/24 20:49 Source: patient and family (Daughter at bedside) History of Present Illness Provider complaint: Abdominal pain 63-year-old female presents emergency department for abdominal pain. Patient is a stroke patient and has difficulty communicating so daughters given primarily the history. Daughter reports that the patient has been having lower abdominal pain. She reports that 3 weeks ago she had open heart surgery for valve replacement. States that She she has been having increasing abdominal pain and is often able to eat or drink. No fevers. No chest pain or difficulty breathing. Daughter also reports that the patient is complaining of hemorrhoidal discomfort. Home Medications Medication Instructions Recorded Confirmed Type amlodipine 5 mg tablet 5 mg PO DAILY #30 tabs 07/07/23 Rx Allergies Allergy/AdvReac Type Severity Reaction Status Date / Time No Known Allergies Allergy Unknown Verified 07/07/23 20:52 Past Med/Surg History Problem List (Updated 04/12/24 @ 23:29 by Aly Lyle MD) IFRAH (acute kidney injury) (Acute) Elevated troponin (Acute) Allergy to lisinopril H/O lithotripsy (Chronic) Acute cholecystitis Medical History Heart murmur Hypertension Cholecystitis Surgical History Heart valve replaced Hx laparoscopic cholecystectomy Social History Smoking Status: Never smoker Preferred Language: Italian Feels Safe at Home: Yes Physical Exam Vital Signs Vital Signs - 24 hr 04/12/24 20:25 04/12/24 20:41 04/12/24 21:08 Temperature 36.2 C L Temperature Source Temporal Artery Scan Pulse Rate 93 H 92 H Respiratory Rate 18 Respiratory Effort / Characteristics Non-Labored Blood Pressure 109/74 Blood Pressure Mean 85 Pulse Oximetry 97 96 Oxygen Delivery Method Room Air Room Air Sepsis Recent Fever Within 48 Hours No Sepsis New/Unexplained Change in Mental Status No Sepsis Action Taken by Nursing No Action Required 04/12/24 22:15 Temperature Temperature Source Pulse Rate 78 Respiratory Rate 18 Respiratory Effort / Characteristics Blood Pressure 136/72 Blood Pressure Mean 93 Pulse Oximetry 97 Oxygen Delivery Method Sepsis Recent Fever Within 48 Hours Sepsis New/Unexplained Change in Mental Status Sepsis Action Taken by Nursing Physical Exam HENT: Exam performed. -Head: Normocephalic and atraumatic. EYES: Conjunctivae and EOM are normal.Right eye exhibits no discharge. Left eye exhibits no discharge. No scleral icterus. NECK: Normal range of motion. Neck supple. No JVD present. No tracheal deviation and normal range of motion present. CV: Normal rate, regular rhythm, normal heart sounds and intact distal pulses. There is no peripheral edema. Palpable radial pulses bue. PULM/CHEST: Effort normal and breath sounds normal. No respiratory distress. No stridor. no wheezes.no rales. -Chest Wall: Surgical incision over the anterior chest wall is clean and dry with no surrounding erythema or discharge. ABD: The abdomen is soft. Ecchymosis over the anterior abdominal wall. There is tenderness to palpation of the left lower quadrant right lower quadrant and suprapubic area. There is no rebound, no guarding. NEURO: Motor and sensation grossly intact. Course Course 2048: The patient was evaluated in room C5. A complete history and physical exam was performed Cardiac monitoring: An order was placed for continuous cardiac monitoring. The monitor shows a rate of 90 with sinus rhythm interpreted by sd 2328: Vital signs stable. Labs are significant for an IFRAH. CT abdomen pelvis is unremarkable. Patient will be admitted for IFRAH. [facility] hospitalist team will be made aware. Administered Medications Sodium Chloride (Nss) 1,000 mls @ 80 mls/hr IV .[id number] Stop: 04/13/24 23:14 Last Admin: 04/12/24 23:22 Dose: 80 mls/hr Documented By: RHINA Discontinued Medications Sodium Chloride (Nss) 1,000 mls @ 999 mls/hr IV .[id number] ONE Stop: 04/12/24 22:01 Last Infusion: 04/12/24 23:02 Dose: Infused Documented By: Admin: 04/12/24 21:45 Dose: 999 mls/hr Documented By: RHINA Medical Decision Making Laboratory Data Attestation: I reviewed the patient's lab results. 04/12/24 20:51 04/12/24 20:51 Lab Results 04/12/24 04/12/24 04/12/24 Range/Units 20:51 21:00 21:47 WBC 9.54 (4.8-10.8) K/ul RBC 4.37 (4.20-5.40) M/uL Hgb 12.3 (12.0-16.0) g/dl POC Hgb 11.6 L (12.0-16.0) g/dl Hct 37.3 (37.0-47.0) % POC Hct 34 L (37-47) % MCV 85.4 (80.0-100.0) fL MCH 28.1 (25.0-34.0) pg MCHC 33.0 (32.0-36.0) g/dL RDW Std Deviation 44.4 (36.4-46.3) fL RDW Coeff of [place] 14.5 (11.5-14.5) % Plt Count 427 H (130-400) K/uL MPV 9.5 (9.4-12.4) fL Immature Gran % (Auto) 0.3 % Neut % (Auto) 72.0 % Lymph % (Auto) 16.7 % Bland % (Auto) 7.7 % Eos % (Auto) 2.7 % Baso % (Auto) 0.6 % Neut # (Auto) 6.87 H (1.40-6.50) K/uL Lymph # (Auto) 1.59 (1.20-3.40) K/uL Bland # (Auto) 0.73 H (0.11-0.59) K/uL Eos # (Auto) 0.26 (0.00-0.50) K/uL Baso # (Auto) 0.06 (0.00-0.20) K/uL Immature Gran # (Auto) 0.03 (0.01-0.20) K/uL POC Sodium 141 (135-144) mmol/L Sodium 139 (136-145) mmol/L POC Potassium 3.1 L (3.3-5.0) mmol/L Potassium 3.0 L (3.5-5.1) mmol/L POC Chloride 101 (101-112) mmol/L Chloride 98 (98-107) mmol/L Carbon Dioxide 26 (21-32) mmol/L POC Total CO2 25 (24-31) mmol/L Anion Gap 15 H (3-11) POC Anion Gap 19.0 (16-25) mmol/L POC BUN 51 H (7-18) mg/dl BUN 56 H (6-23) mg/dl Creatinine 2.37 H (0.6-1.2) mg/dl POC Creatinine 2.6 H (0.6-1.3) mg/dl Est Cr Clr Drug Dosing 25.7 ml/min eGFR 22.20 BUN/Creatinine Ratio 23.6 H (10-20) Glucose 90 (70-99(Fasting)) mg/dl POC Glucose (other) 92 (70-99) mg/dl Calcium 10.2 (8.6-10.3) mg/dl POC Ioniz Calcium Arpan 1.14 (1.12-1.32) mmol/l Total Bilirubin 0.7 (0.2-1.0) mg/dl Direct Bilirubin 0.1 (0-0.2) mg/dl AST 21 (13-39) U/L ALT 18 (7-52) U/L Alkaline Phosphatase 110 H (34-104) U/L Total Protein 8.5 H (6.0-8.3) gm/dl Albumin 4.2 (3.4-5.0) gm/dl Lipase 79 (11-82) U/L Urine Color Yellow Urine Appearance Cloudy A (Clear) Urine pH 5.0 (4.5-7.5) Ur Specific [place] 1.022 (1.000-1.030) Urine Protein Trace H (Negative) Urine Glucose (UA) Negative (Negative) Urine Ketones 1+ H (Negative) Urine Blood Negative (Negative) Urine Nitrite Negative (Negative) Urine Bilirubin Negative (Negative) Urine Urobilinogen Negative (Negative) Ur Leukocyte Esterase 1+ H (Negative) Urine WBC (Auto) 6-10 H (0-5) /hpf Urine RBC (Auto) 3-5 H (0-2) /hpf U Hyaline Cast (Auto) 6-10 H (0-2) /lpf U Epithel Cells (Auto) 11-20 H (0-2) /hpf Urine Bacteria (Auto) 2+ H (None Seen) Ur Renal Epithelial Cell Present A (None Presnt) /lpf Hyaline Casts P (None Presnt) /lpf Imaging Data Radiologist's Impression: Abdomen/Pelvis CT 04/12/24 21:01 Exam(s): CT ABDOMEN + PELVIS Without Contrast EXAM: CT Abdomen and Pelvis Without Intravenous Contrast CLINICAL HISTORY: Reason for exam: abd pain. TECHNIQUE: Axial computed tomography images of the abdomen and pelvis without intravenous contrast. CTDI is 27.73 mGy and DLP is 1374.6 mGy-cm. Automated exposure control was utilized for the study. A dose lowering technique was utilized adhering to the principles of ALARA. COMPARISON: 07/19/16 FINDINGS: Lung bases: Unremarkable. Heart: Previous sternotomy and aortic valve replacement. No cardiomegaly. ABDOMEN: Liver: Unremarkable. Gallbladder and bile ducts: Cholecystectomy. No ductal dilation. Pancreas: Unremarkable. No ductal dilation. Spleen: Unremarkable. No splenomegaly. Adrenals: Unremarkable. No mass. Kidneys and ureters: Unremarkable. No obstructing stones. No hydronephrosis. Stomach and bowel: No bowel obstruction. Diverticulosis without diverticulitis. Moderate rectal stool. PELVIS: Appendix: No evidence of appendicitis. Bladder: Decompressed urinary bladder. No stones. Reproductive: Unremarkable as visualized. ABDOMEN and PELVIS: Intraperitoneal space: Unremarkable. No free air, significant free fluid, or fluid collection. Bones/joints: See above. Soft tissues: Unremarkable. Vasculature: Unremarkable. No abdominal aortic aneurysm. Lymph nodes: Unremarkable. No enlarged lymph nodes. IMPRESSION: Moderate rectal stool. Otherwise, no acute findings. Electronically signed by: Enzo Trejo M.D. 04/12/24 23:08 PM [facility] Narrative 2049: The patient was evaluated in room C5. A complete history and physical exam was performed Cardiac monitoring: An order was placed for continuous cardiac monitoring. The monitor shows a rate of 90 with sinus rhythm interpreted by sd 2328: Vital signs stable. Labs are significant for an IFRAH. CT abdomen pelvis is unremarkable. Patient will be admitted for IFRAH. [facility] hospitalist team will be made aware. Impression & Plan IFRAH (acute kidney injury) Discharge Plan Visit Data Chief Complaint: Illness Stated Complaint: NOT EATING, DIGESTIVE PROBLEM, JUST OUT OF SURG ED Provider: Aly Lyle Discharge Problem: IFRAH (acute kidney injury) Patient Disposition: Admitted As Inpatient Forms Stand Alone Forms: My [facility] Prescriptions Prescriptions: No Action amlodipine 5 mg tablet 5 mg PO DAILY Qty: 30 0RF Referrals Referrals: Pretty Higuera MD [Primary Care Provider] -
[2024-04-12 21:36] LABS: Basophils # (auto) 0.06 K/uL (0.00-0.20); Basophils % (auto) 0.6 %; Eosinophils # (auto) 0.26 K/uL (0.00-0.50); Eosinophils % (auto) 2.7 %; Hematocrit (blood only) 37.3 % (37.0-47.0); Hemoglobin 12.3 g/dl (12.0-16.0); Immature Granulocytes # (auto) 0.03 K/uL (0.01-0.20); Immature Granulocytes % (auto) 0.3 %; Lymphocytes # (auto) 1.59 K/uL (1.20-3.40); Lymphocytes % (auto) 16.7 %; Mean Corpuscular Hemoglobin 28.1 pg (25.0-34.0); Mean Corpuscular Volume 85.4 fL (80.0-100.0); Mean Platelet Volume 9.5 fL (9.4-12.4); Monocytes # (auto) 0.73 K/uL (0.11-0.59); Monocytes % (auto) 7.7 %; Neutrophils # (auto) 6.87 K/uL (1.40-6.50); Platelet Count 427 K/uL (130-400); RDW Coefficient of Variation 14.5 % (11.5-14.5); RDW Standard Deviation 44.4 fL (36.4-46.3); Red Blood Count 4.37 M/uL (4.20-5.40); White Blood Count 9.54 K/ul (4.8-10.8)
[2024-04-12 21:41] LABS: Albumin Level 4.2 gm/dl (3.4-5.0); BUN Creatinine Ratio 23.6 (10-20); Bilirubin Direct 0.1 mg/dl (0-0.2); Bilirubin,Total 0.7 mg/dl (0.2-1.0); Calcium 10.2 mg/dl (8.6-10.3); Creatinine Clr Calc Pharmacy 25.7 ml/min; Total Protein 8.5 gm/dl (6.0-8.3)
[2024-04-12] MEDS: SODIUM CHLORIDE 0.9% 1,000 ML IV ONE (21:45)
[2024-04-12 22:17] LABS: Appearance Urine Cloudy (Clear); Bilirubin Urine Negative (Negative); Blood Urine Negative (Negative); Color Urine Yellow; Glucose Urine UA Negative (Negative); Ketones Urine 1+ (Negative); Leukocyte Esterase Urine 1+ (Negative); Nitrite Urine Negative (Negative); Protein Urine Trace (Negative); Specific Gravity Urine 1.022 (1.000-1.030); Urobilinogen Urine Negative (Negative)
[2024-04-12 22:28] LABS: Bacteria Urine Automated 2+ (None Seen); Hyaline Casts Urine P /lpf (None Presnt)
[2024-04-12 22:29] LABS: Renal Epithelial Cells Urine Present /lpf (None Presnt)
--- NOTE | 2024-04-12 23:09 | CT Scan Report ---
Exam(s): CT ABDOMEN + PELVIS Without Contrast EXAM: CT Abdomen and Pelvis Without Intravenous Contrast CLINICAL HISTORY: Reason for exam: abd pain. TECHNIQUE: Axial computed tomography images of the abdomen and pelvis without intravenous contrast. CTDI is 27.73 mGy and DLP is 1374.6 mGy-cm. Automated exposure control was utilized for the study. A dose lowering technique was utilized adhering to the principles of ALARA. COMPARISON: 07/19/16 FINDINGS: Lung bases: Unremarkable. Heart: Previous sternotomy and aortic valve replacement. No cardiomegaly. ABDOMEN: Liver: Unremarkable. Gallbladder and bile ducts: Cholecystectomy. No ductal dilation. Pancreas: Unremarkable. No ductal dilation. Spleen: Unremarkable. No splenomegaly. Adrenals: Unremarkable. No mass. Kidneys and ureters: Unremarkable. No obstructing stones. No hydronephrosis. Stomach and bowel: No bowel obstruction. Diverticulosis without diverticulitis. Moderate rectal stool. PELVIS: Appendix: No evidence of appendicitis. Bladder: Decompressed urinary bladder. No stones. Reproductive: Unremarkable as visualized. ABDOMEN and PELVIS: Intraperitoneal space: Unremarkable. No free air, significant free fluid, or fluid collection. Bones/joints: See above. Soft tissues: Unremarkable. Vasculature: Unremarkable. No abdominal aortic aneurysm. Lymph nodes: Unremarkable. No enlarged lymph nodes. IMPRESSION: Moderate rectal stool. Otherwise, no acute findings. Electronically signed by: Enzo Trejo M.D. 04/12/24 23:08 PM
[2024-04-12] MEDS: SODIUM CHLORIDE 0.9% 1,000 ML IV SCH (23:22)
--- NOTE | 2024-04-12 23:38 | History & Physical Report ---
Date of Service April 12, 2024 Assessment & Plan (1) IFRAH (acute kidney injury): Plan: Prior normal creatinine. Significant elevation at 2.37. Likely pre-renal IFRAH in the setting of decreased PO intake 2/2 constipation. Given 1L NS in the ED. Started on mIVF @ 80 mL/hr. Ordered urine lytes. With renal epithelial cells on UA would check urine cytology. Anticipate normalization after rehydration. If urine cytology abnormal or patient not responding to fluids would consider nephrology consult. Irizarry for Is/Os AM BMP f/u urine studies encourage PO avoid nephrotoxic agents (2) Constipation: Plan: Patient constipated likely in the setting of recent open heart surgery. No BM in the last 10 days. Has been taking Miralax and colace. Schedule Miralax 17 gm BID and colace. Glycerin suppository x 1. stool count force fluids bowel regimen - goal 1-2 soft formed BM daily (3) Asymptomatic bacteriuria: Plan: UA likely contaminated. Asymptomatic. If patient develops signs or symptoms of UTI would repeat UA and treat. Defer on abx at this time. (4) Heart valve replaced: Plan: Continue atorvastatin. Cautiously continue ASA as patient with recent AVR. monitor creatinine closely. (5) Hypokalemia: Plan: Replete Plan GERD: continue pantoprazole Code status: full DVT ppx: SCDs, ambulation FENGI: regular Dispo: MedSurg History of Present Illness Chief Complaint: abdominal pain Primary Care Provider: Pretty Higuera MD 63 y/o female with a PMHx of CVA with subsequent expressive aphasia and recent open heart surgery with aortic valve replacement presents with abdominal pain. Patient having rectal pain/discomfort and significant constipation. Has not had a BM in 10 days. Has been taking miralax and colace without improvement in symptoms. No actual abdominal pain. No nausea or vomiting. No dysuria or urinary symptoms. No fevers or chills. No CP or SOB. No calf pain or swelling. Has lost about 7 pounds since having her aortic valve replaced. Allergies Allergy/AdvReac Type Severity Reaction Status Date / Time No Known Allergies Allergy Unknown Verified 07/07/23 20:52 Home Medications Medication Instructions Recorded Confirmed Type aspirin 81 mg tablet,delayed 81 mg PO QAM 04/12/24 04/13/24 History release atorvastatin 80 mg tablet 80 mg PO HS 04/12/24 04/13/24 History pantoprazole 40 mg tablet,delayed 40 mg PO QAM 04/12/24 04/13/24 History release multivitamin 1 tab PO HS 04/13/24 04/13/24 History Past Med/Surg History Problem List (Updated 04/13/24 @ 17:48 by Noemi Ayoub PA-C) History of CVA with residual deficit Asymptomatic bacteriuria Hypokalemia Constipation IFRAH (acute kidney injury) (Acute) Elevated troponin (Acute) Allergy to lisinopril H/O lithotripsy (Chronic) Acute cholecystitis Medical History Heart murmur Hypertension Cholecystitis Surgical History Heart valve replaced Hx laparoscopic cholecystectomy Social History Smoking Status: Never smoker Hx Alcohol Use: No Hx Substance Use: No Preferred Language: Niuean Communication Ability: Effective Hearing Aid Mechanic Required: No Beliefs That Will Affect Care: None Current Living Situation: Family Other Information That Helps Us Care for You: No Feels Safe at Home: Yes Safety Concerns: Feels Safe At This Time Assistive Devices: None Review of Systems 2 Review of Systems: See HPI Physical Exam 2 Physical Exam: Gen: well appearing patient in NAD HEENT: AT NC MMM Resp: CTAB no wheezing no increased work of breathing CV: RRR no m/r/g clinically well perfused, no edema, no calf tenderness Abd: +BS, soft, non-tender, non-distended MSK: no obvious deformities Skin: no rashes or bruising Neuro: alert and oriented Psych: appropriate mood and affect Results & Data Results & Data Vital Signs (Past 12 Hours) Vital Signs Temp Pulse Resp BP Pulse Ox O2 Del Method 04/12/24 22:15 78 18 136/72 97 04/12/24 21:08 96 Room Air 04/12/24 20:41 92 H 04/12/24 20:25 36.2 C L 93 H 18 109/74 97 Room Air Laboratory Results 04/12/24 20:51 04/12/24 20:51 Diagnostic Findings Abdomen/Pelvis CT 04/12/24 21:01 FINDINGS: Lung bases: Unremarkable. Heart: Previous sternotomy and aortic valve replacement. No cardiomegaly. ABDOMEN: Liver: Unremarkable. Gallbladder and bile ducts: Cholecystectomy. No ductal dilation. Pancreas: Unremarkable. No ductal dilation. Spleen: Unremarkable. No splenomegaly. Adrenals: Unremarkable. No mass. Kidneys and ureters: Unremarkable. No obstructing stones. No hydronephrosis. Stomach and bowel: No bowel obstruction. Diverticulosis without diverticulitis. Moderate rectal stool. PELVIS: Appendix: No evidence of appendicitis. Bladder: Decompressed urinary bladder. No stones. Reproductive: Unremarkable as visualized. ABDOMEN and PELVIS: Intraperitoneal space: Unremarkable. No free air, significant free fluid, or fluid collection. Bones/joints: See above. Soft tissues: Unremarkable. Vasculature: Unremarkable. No abdominal aortic aneurysm. Lymph nodes: Unremarkable. No enlarged lymph nodes. IMPRESSION: Moderate rectal stool. Otherwise, no acute findings. Supervising Physician Co-Signing Physician Notes Attending addendum: I have physically seen this patient, have supervised the medical residents activities, and agree with the H&P unless as otherwise noted. Assessment and Plan: Acute kidney injury- Creatinine 2.37 on admission, with baseline 0.78 Likely secondary to prerenal state associated with fluid loss associated with decreased oral intake due to constipation Status post 1 L normal saline bolus from the ED Placed on NSS at 80 mL/h x 1 additional liter Renal epithelial cells noted on urinalysis, will order urine cytology Repeat BMP in the a.m. Constipation- Should improve with rehydration with IV fluids Encourage oral fluid intake as well Bowel regimen as noted Asymptomatic bacteriuria- Follow urine culture and sensitivity Low threshold to start antibiotics Hypokalemia- Potassium 3.0 and placing with IV fluids as noted Magnesium level ordered and pending Repeat laboratories in the a.m. with BMP Remaining orders and notations as noted Resident Activity Tracking Resident Involvement: Resident Care Provided Care Provided: Adult [facility]
[2024-04-13] MEDS ORDERED: ALUMINUM/MAGNESIUM SUSP 30 ML UDC PO PRN (00:34)
[2024-04-13] MEDS ORDERED: ONDANSETRON INJ 2 MG/ML 2 ML VIAL IV PRN (00:34)
[2024-04-13] MEDS: POTASSIUM CHLORIDE CRTAB 20 MEQ TABCR PO STA (00:56)
[2024-04-13] MEDS: POLYETHYLENE (MIRALAX) 17 GM PACK PO ONE (00:56)
[2024-04-13] MEDS: GLYCERIN ADULT 12 SUPP/BOX SUPP PR ONE (01:04)
[2024-04-13 07:04] LABS: Hematocrit (blood only) 31.2 % (37.0-47.0); Hemoglobin 10.1 g/dl (12.0-16.0); Mean Corpuscular Hemoglobin 27.8 pg (25.0-34.0); Mean Corpuscular Hgb Conc 32.4 g/dL (32.0-36.0); Mean Platelet Volume 9.6 fL (9.4-12.4); Platelet Count 326 K/uL (130-400); RDW Coefficient of Variation 14.5 % (11.5-14.5); RDW Standard Deviation 44.6 fL (36.4-46.3); Red Blood Count 3.63 M/uL (4.20-5.40); White Blood Count 8.61 K/ul (4.8-10.8)
[2024-04-13 07:21] LABS: Albumin Level 3.4 gm/dl (3.4-5.0); BUN Creatinine Ratio 29.5 (10-20); Bilirubin,Total 0.5 mg/dl (0.2-1.0); Calcium 8.8 mg/dl (8.6-10.3); Globulin 3.5 gm/dl (2.5-4.0); Potassium 3.6 mmol/L (3.5-5.1); Total Protein 6.9 gm/dl (6.0-8.3)
[2024-04-13] MEDS: ACETAMINOPHEN 325 MG TAB PO PRN (08:32)
[2024-04-13] MEDS: ASPIRIN 81 MG ECTAB PO SCH (08:33)
[2024-04-13] MEDS: PANTOprazole 40 MG TAB PO SCH (08:33)
[2024-04-13] MEDS: AMIODARONE 200 MG TAB PO SCH (08:33)
[2024-04-13] MEDS: POLYETHYLENE (MIRALAX) 17 GM PACK PO SCH (09:00)
[2024-04-13] MEDS: SENNA 8.6 MG TAB PO SCH (09:01)
--- NOTE | 2024-04-13 14:02 | Hospitalist Progress Note ---
Date of Service April 13, 2024 Assessment & Plan (1) Constipation: Plan: Presented with rectal pain in setting of significant constipation. Bowel regimen at home unsuccessful - Recent open heart surgery at [facility] ~3 weeks ago. Patient reports no BM since surgery - CT A/P showed moderate rectal stool - Well-tolerating regular diet - Bowel regimen: Scheduled MiraLax BID Scheduled Senna daily Suppository x 2 Milk of molasses enema x 1 - Encourage po fluids - 2 reported brown moderate BM so far - Goal is 1-2 soft formed BM daily (2) IFRAH (acute kidney injury): Plan: Prior normal creatinine, with significant elevation at 2.37 on admission - Likely pre-renal IFRAH in the setting of decreased PO intake secondary to constipation - UA with renal epithelial cells --> urine cytology NEGATIVE for high-grade urothelial carcinoma - Cr improved to 1.66 after IV fluids on admission - Encourage PO fluids - Avoid nephrotoxic agents - Monitor BMP with AM labs (3) Asymptomatic bacteriuria: Plan: UA likely contaminated as more epis than WBCs. 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 Will HOLD now due to IFRAH (6) Hypertension: Plan: -HOLD olmesartan 40 mg daily for IFRAH Need to find out if still on Toprol XL 25mg hs as was prescribed in 03/15 Plan Ordered enema and suppository Reviewed PCP notes CODE STATUS: Full code Admission and Anticipated Discharge Date Admission Date: April 12, 2024 Supervising Physician Co-Signing Physician Notes DAVID Supervision Note: I did not personally see or examine the patient today, but I verified all carlos points of DAVID Ayoub's assessment and plan with the following exceptions/addition s: changes made as above Subjective Patient seen and evaluated at bedside. She reports cramping rectal pain. She did have 2 episodes of loose brown bowel movements. Patient reports that about 3 weeks ago, she had open heart surgery for aortic valve replacement at [facility]. She does not think she had a bowel movement since the surgery. She denies any abdominal pain, nausea, or vomiting. Denies any other acute concerns. We discussed that narcotic pain medication will make her constipation worse, and we need to get her bowel regimen optimized. Patient understanding. No additional complaints or concerns at this time. Physical Exam Physical Exam: General: No acute distress, nondiaphoretic, well-developed, well-nourished. Skin: The skin was without rashes, erythema, edema, or bruising. Cardiac: Regular rate and rhythm without murmurs gallops or rubs. Pulm: Clear to auscultation bilaterally without wheezes, rales or rhonchi. No respiratory distress. 100% on room air. Abdominal: Soft, nontender, nondistended. Bowel sounds present. : Irizarry catheter draining katarzyna colored urine. Neuro: A&O x3. No focal neurological deficits. Results & Data Results & Data Vital Signs (Past 12 Hours) Vital Signs Temp Pulse Resp BP Pulse Ox O2 Del Method 04/13/24 07:58 97.7 F 78 16 132/82 98 Room Air Laboratory Results Reviewed CBC Reviewed CMP Reviewed UA PG Care Time/CCT Total # of Minutes Spent Total Time Spent with Patient: Total time spent is greater than 50% in coordination of care (as documented) at patient's floor/unit and/or counseling patient: Coding Level of Care Code 96655 SUB INP/OBS CARE 3/50MIN Diagnoses Constipation K59.00 IFRAH (acute kidney injury) N17.9 Asymptomatic bacteriuria R82.71 Heart valve replaced Z95.2 History of CVA with residual deficit I69.30 Hypertension I10 Hypertension type: unspecified (6) Hypertension Hypertension type: unspecified Qualified Code(s): I10 - Essential (primary) hypertension
[2024-04-13] MEDS: bisacodyL 10 MG SUPP PR STA (18:05)
[2024-04-13] MEDS: ATORVASTATIN 40 MG TAB PO SCH (19:18)
[2024-04-13 19:23] VITALS: RESP 18
--- NOTE | 2024-04-13 20:14 | Billing Data ---
Date of Service April 13, 2024 Coding Level of Care Code 73577 INT INP/OBS CARE
--- OUTSIDE RECORDS SUMMARY | 2024-04-13 23:46 | External Medical Summary | Continuity of Care Document ---
Author Name Unknown Organization [address] A Address [facility] [place], [place] [id number] Care Team Providers Care Assistant Cross Country Coach Name Role Phone Pretty Higuera Primary Care Physician [phone] Encounter [facility] [id number] Date(s): 04/02/24 - 04/02/24 [facility] [address] [facility] - Specialties Entrance A, [address] [place] [phone] Encounter Diagnosis Aortic stenosis with bicuspid valve.(Discharge Diagnosis) - 03/30/24 Thoracic ascending aortic aneurysm(Discharge Diagnosis) - 03/30/24 Atrial fibrillation, permanent(Discharge Diagnosis) - 03/30/24 PFO (patent foramen ovale)(Discharge Diagnosis) - 03/30/24 Status post aortic valve replacement with tissue(Discharge Diagnosis) - 03/30/24 History of ascending aorta repair(Discharge Diagnosis) - 03/30/24 HTN (hypertension)(Discharge Diagnosis) - 03/30/24 Discharge Disposition: Home or Self Care Attending Physician: THEO Dickerson Michelle L Referring Physician: DO Cole Jason D Allergies, Adverse Reactions, Alerts Substance Criticality Severity Reaction Reaction Severity Status lisinopril 1 Active 1Cough Assessment and Plan Extracted from: Title:AVR/aortic aneurysm po st op Office Visit Note Author:THEO Dickerson Michelle L Date:04/02/24 1.Aortic stenosis with bic uspid valve. Status: chronic, improved after surgery 2.Status post aortic valve replacement with tissue Aortic valve replacement using biologic valve (25mm Inspiris) Prophylaxis againstinfectious endocarditisis reasonable before dental procedures that involve manipulation of gingival tissue, manipulation of the periapical region of teeth, or perforation of the oral mucosa in patientswithprosthetic materials used forcardiac valve repair or replacement.Maintenance of the best oral hygiene to minimizebacterialseedingis imperative. 3.Thoracic ascending aortic aneurysm Status: chronic, improved after surgery 4.History of ascending aorta repair Ascending aorta repair using 30mm Gelweave graft Medications reviewed, taking as prescribed. Continue to increase activity. Use ISB as instructed at discharge. Follow up with cardiology Dr. Cole on04/04/2024. Follow up at your primary care office withDr. Joseph 04/17/2024. Encouraged participation in cardiac rehab, beginning 6 weeks after surgery. Reminded patientno driving for at least 4 weeks after surgery andlifting restriction of no more than 10 pounds for 6 weeks after surgery and no more than 20 pounds for a total of 12 weeks after surgery. Continue to monitor vital signs, incision sitesand contact us with any issues. All questions satisfactorily answered and patientstated understanding of today's discussion. Follow up with CT surgery via telephone on 04/24/2024. 5.Atrial fibrillation, permanent Status: chronic, stable Left atrial ablation using Encompass clamp Left atrial appendage ligation using a 35mm AtriCure clip Continue amiodarone 200mg PO daily for onemonth as per Dr. Stern. Further management deferred to cardiology. 6.PFO (patent foramen ovale) Status: chronic, improved StatuspostPFO closure 7.HTN (hypertension) Status: chronic condition, stable/controlled Continued optimization of medications, lifestyle measures, weight loss (as appropriate) to achieve goal BP<130/80 mm/Hg. Further management deferred to cardiology and/or PCP. Immunizations Given and Recorded Vaccine Date Status Refusal Reason SARS-CoV-2 (COVID-19) mRNA BNT-162b2 vax 05/09/21 Recorded SARS-CoV-2 (COVID-19) mRNA BNT-162b2 vax 09/11/20 Recorded SARS-CoV-2 (COVID-19) mRNA BNT-162b2 vax 08/21/20 Recorded influenza virus vaccine, inactivated 01/30/20 Give n zoster vaccine, inactivated 03/14/19 Given zoster vaccine, inactivated 01/09/19 Given tetanus/diphtheria/pertuss, acel (Tdap) 07/23/ G iven Medications amiodarone 200 mg oral tablet Start: 03/24/24 11:04:00 AM EDT, 1 tab, PO, Daily, Disp# 30 tab, Refills: 0, Pharmacy: [facility] Start Date: 03/24/24 Stop Date: 04/23/24 Status: Ordered aspirin 81 mg oral delayed release tablet Start: 12/21/23 9:44:00 AM EDT, 1 tab, PO, Daily, Disp# 30 tab, Refills: 3, Pharmacy: [id number] Start Date: 12/21/23 Stop Date: 04/19/24 Status: Ordered atorvastatin 80 mg oral tablet Start: 12/21/23 9:45:00 AM EDT, 1 tab, PO, Daily, Disp# 30 tab, Refills: 3, Pharmacy: [id number] Start Date: 12/21/23 Stop Date: 04/19/24 Status: Ordered Multi Vitamin+ Start: 03/09/24 10:18:00 AM EDT, 1 tab, PO, qAM Start Date: 03/09/24 Status: Ordered Protonix 40 mg oral delayed release tablet Start: 03/24/24 11:04:00 AM EDT, 1 tab, PO, Daily, Disp# 30 tab, Refills: 0, Pharmacy: [facility] Start Date: 03/24/24 Stop Date: 04/23/24 Status: Ordered Tylenol 325 mg oral tablet Start: 03/24/24 11:04:00 AM EDT, 2 tab, PO, q8h Start Date: 03/24/24 Status: Ordered Mental Status 04/02/24 Barriers to Learning one year None evide nt Mandatory Health Literacy Documentation Yes Health Literacy Communication Barriers N ever Primary Language Eritrean Problem List Condition Confirmation Course Effective Dates Status Health St atus Informant Adult BMI 38.0-38.9 kg/sq m Confirmed 07/29/11 Active Thoracic ascending aortic aneurysm Confirmed Active Aortic aneurysm Confirmed Active Aortic valve stenosis Confirmed Active Aortic stenosis with bicuspid valve. Confirmed Active Bicuspid aortic valve Confirmed Active Stroke Confirmed Active Grade II diastolic dysfunction Confirmed Active Family history of melanoma 1 Confirmed Active GERD Confirmed 07/29/11 Active History of ascending aorta repair Confirmed Active Status post aortic valve replacement with tissue Confirmed Active HTN (hypertension) Confirmed Active Mild obstructive sleep apnea 2 Confirmed Active PFO (patent foramen ovale) Confirmed Active Atrial fibrillation, permanent Confirmed Active ROUTINE GENERAL MEDICAL EXAMINATION AT A HEALTH CARE FACILITY Confirmed Active Weight disorder Confirmed Active 1sister 2sleep study 2015 Diagnosis Diagnosis Type Effective Dates Health Status Clinical Service Informant Aortic stenosis with bicuspid valve. Discharge Diagnosis 03/30/24 Non-Specified Thoracic ascending aortic aneurysm Discharge Diagnosis 03/30/24 Non-Specified Atrial fibrillation, permanent Discharge Diagnosis 03/30/24 Non-Specified PFO (patent foramen ovale) Discharge Diagnosis 03/30/24 Non-Specified HTN (hypertension) Discharge Diagnosis 03/30/24 Non-Specified Status post aortic valve replacement with tissue Discharge Diagnosis 03/30/24 Non-Specified History of ascending aorta repair Discharge Diagnosis 03/30/24 Non-Specified Procedures Procedure Date Related Diagnosis Body Site Status Thrombectomy 12/15/23 Completed Mammogram 1 06/20/20 Completed Left knee x-ray 2 08/17/18 Complet ed Cholecystectomy 08/18/15 Completed Mammogram 3 08/14/15 Completed Full sleep study 4 08/13/15 Comple mayra DNS (deviated nasal septum) 5 07/24/15 Completed Mammogram 6 07/17/12 Completed D&C Completed Lithotripsy Completed 1ACR BI RADS Cat 1 NEGATIVE 2Minimal degenerative change. Trace joint effusion. No evidence for acute bony pathology. 3No malignancy. One year screening recommended. 4NovaSom - mild obstructive sleep apnea 5? 2009 6normal Vital Signs Most recent to oldest [Reference Range]: 1 Patient Weight 105 kg (04/02/24 10:37 AM) Heart Rate 64 bpm (04/02/24 10:37 AM) Respiratory Rate 18 br/min (04/02/24 10:37 AM) Blood Pressure 120/70mmHg (04/02/24 10:37 AM) Cuff Pulse Pressure 50 mmHg (04/02/24 10:37 AM) Social History Social History Type Response Smoking Status Never smoked cigaret mark Sex Female Sex Representation Female (finding) Implantable Device List Procedure Provider Procedure Date Device Type Site Unknown Unknown 03/19/24 Unknown Unknown Device Identifier Serial Number Lot or Batch Number Manufacturing Date Expiration Date Distinct Identification Code MRI Safety Implantable Status Assigning Authority Unknown Unknown [id number] Unknown 12/21/26 Unknown Unknown Active Unkno wn Unknown Unknown n/a Unknown 07/25/27 Unknown Unknown Active Unkno wn Unknown Unknown [id number] Unknown 11/19/26 Unknown Unknown Active Unknown Cardiac surgery Outpatient Note * THEO Dickerson, Danae Cantor: PERFORM, MODIFY, MODIFY Event Display: Cardiac Surgery Outpt Note Authored Date: Primary Care Provider MD Kalen, Pretty Referring Provider DO Cole Jason D Chief Complaint first apt. s/p heart surgery History of Present Illness Here today in scheduled follow up after surgery by Dr. Alaniz 03/19/2024: Preoperative Diagnosis Symptomatic severe aortic valve stenosis Bicuspid aortic valve Ascending aorta aneurysm Atrial fibrillation Patent foramen ovale Left sided SVC Recent history of stroke with residual aphasia Morbid Obesity Grade II diastolic dysfunction HTN (hypertension) Mild obstructive sleep apnea Operation Aortic valve replacement using biologic valve (25mm Inspiris) Ascending aorta repair using 30mm Gelweave graft Left atrial ablation using Encompass clamp Left atrial appendage ligation using a 35mm AtriCure clip PFO closure Ligation of left sided SVC [1] Hospital course was complicated by postoperative hypotension, requiring midodrine; now resolved. Beta kinjal held due to hypotension. She also had R PTX on CXR, which improved. She is stable on RA. She was started on PO amio for MAZE procedure; will be discharged on amio 200mg PO daily x1 month as per Dr. Stern. She also experienced urinary retention during hospitalization, requiring straight cath x2; resolved. Will be discharged on 5 days of Flomax. [1] She was discharged home on 03/24/2024. She presents to clinic today with her daughter. She has some residual speech difficulties so her daughter assists with responses. She has been doing okay, but appetite has been very slow to respond. She takes a few bites of food and doesn't want any more, food has a metallic taste. She's tried a variety of foods, nothing seems to taste good. I reassured her this will most likely pass in another week or two and she should try to concentrate on protein rich foods. She's been urinating well, in fact her daughter says she stopped the BID dosing of Lasix because she was "up all night going to the bathroom". She's not had any fluid retention with Lasix 40mg every morning. Because she's not been eating much, she feels "weak" and tires easily. She has been using a walker but thinks she'll be finewithout it while walking through the home. Review of Systems Constitutional symptoms: denies fever, chills Cardiovascular: denies chest pain, palpitations, syncope, orthopnea, paroxysmal nocturnal dyspnea, peripheral edema, no clicking, popping or instabilityof chest wall Respiratory: denies cough, wheezing, shortness of breath Physical Exam Vitals & Measurements HR:64(Monitored) RR:18 BP:120/70 WT:105.000kg(Dosing) WT:105kg Vital signs as documented Constitutional:Well nourished, in no acute distress Skin:Warm, dry; surgical sites are healing without redness, swelling, drainage, excessive warmth;sternotomy tape removed without difficulty Neck:No JVD. Chest:Clear to auscultation bilaterally, no use of accessory muscles, no clicking, popping or instability in chest wall Heart:RRR, norubs, gallops,or murmur. Extremities: no peripheral edema; walker Assessment/Plan 1.Aortic stenosis with bicuspid valve. Status: chronic, improved after surgery 2.Status post aortic valve replacement with tissue Aortic valve replacement using biologic valve (25mm Inspiris) Prophylaxis againstinfectious endocarditisis reasonable before dental procedures that involve manipulation of gingival tissue, manipulation of the periapical region of teeth, or perforation of the oral mucosa in patientswithprosthetic materials used forcardiac valve repair or replacement.Maintenance of the best oral hygiene to minimizebacterialseedingis imperative. 3.Thoracic ascending aortic aneurysm Status: chronic, improved after surgery 4.History of ascending aorta repair Ascending aorta repair using 30mm Gelweave graft Medications reviewed, taking as prescribed. Continue to increase activity. Use ISB as instructed at discharge. Follow up with cardiology Dr. Cole on04/04/2024. Follow up at your primary care office withDr. Joseph 04/17/2024. Encouraged participation in cardiac rehab, beginning 6 weeks after surgery. Reminded patientno driving for at least 4 weeks after surgery andlifting restriction of no morethan 10 pounds for 6 weeks after surgery and no more than 20 pounds for a total of 12 weeks after surgery. Continue to monitor vital signs, incision sitesand contact us with any issues. All questions satisfactorily answered and patientstated understanding of today's discussion. Follow up with CT surgery via telephone on 04/24/2024. 5.Atrial fibrillation, permanent Status: chronic, stable Left atrial ablation using Encompass clamp Left atrial appendage ligation using a 35mm AtriCure clip Continue amiodarone 200mg PO daily for onemonth as per Dr. Stern. Further management deferred to cardiology. 6.PFO (patent foramen ovale) Status: chronic, improved StatuspostPFO closure 7.HTN (hypertension) Status: chronic condition, stable/controlled Continued optimization of medications, lifestyle measures, weight loss (as appropriate) to achieve goal BP<130/80 mm/Hg. Further management deferred to cardiology and/or PCP. Attestation I, Danae Lua PA-C, [id number] discrete time performing the activities of this visit. Activities mayinclude any or all of the following: - review of the medical record - obtaining a history - physical exam/evaluation - counseling/educating patient/family/caregiver - discussion/referral to other healthcare professionals - documenting care in the medical record - independent interpretation of results - communication of results to patient/family/caregiver - coordination of care Problem List/Past Medical History Ongoing Adult BMI 38.0-38.9 kg/sq m Aortic aneurysm Aortic stenosis with bicuspid valve. Aortic valve stenosis Atrial fibrillation, permanent Bicuspid aortic valve Family history of melanoma GERD Grade II diastolic dysfunction History of ascending aorta repair HTN (hypertension) Mild obstructive sleep apnea PFO (patent foramen ovale) Rash ROUTINE GENERAL MEDICAL EXAMINATION AT A HEALTH CARE FACILITY Status post aortic valve replacement with tissue Stroke Thoracic ascending aortic aneurysm Weight disorder Resolved HYPERTENSION Procedure/Surgical History Thrombectomy| Service Date: 12/15/2023Mammogram| Service Date: 1Left knee x-ray| Service Date: 08/17/2018Cholecystectomy| Service Date: 08/18/2015Mammogram| Service Date: 08/14/2015Full sleep study| Service Date: 08/13/2015DNS (deviated nasal septum)| Service Date: 07/24/2015 Mammogram| Service Date: 07/17/2012 Lithotripsy D&C Medications acetaminophen(Tylenol 325 mg oral tablet), 650 mg= 2 tab, PO, q8h amiodarone(amiodarone 200 mg oral tablet), 200 mg= 1 tab, PO, Daily aspirin(aspirin 81 mg oral delayed release tablet), 81 mg= 1 tab, PO, Daily, 3 refills atorvastatin(atorvastatin 80 mg oral tablet), 80 mg= 1 tab, PO, Daily, 3 refills cyclobenzaprine(cyclobenzaprine 5 mg oral tablet), 5 mg= 1 tab, PO, tid, PRN furosemide(Lasix 40 mg oral tablet), 40 mg= 1 tab, PO, bid (6a - 2p) multivitamin(Multi Vitamin+), 1 tab, PO, qAM pantoprazole(Protonix 40 mg oral delayed release tablet), 40 mg= 1 tab, PO, Daily potassium chloride(potassium chloride 20 mEq oral tablet, extended release), 40 mEq= 2 tab, PO, bid tamsulosin(Flomax 0.4 mg oral capsule), 0.4 mg= 1 cap, PO, Daily Allergies lisinopril Social History Smoking Status Never smoked cigarettes Alcohol - Low Risk Employment/School Status:Employed Description:[employer] - [employer]. Has tax law degree Exercise - Does not exercise Home/Environment - Comments: 3 kids - one local, other in [place] and one in [place] Grew up [place]. in [place] since 1983 Nutrition/Health - Low Risk Other - Comments: never had colo. last td - ? >10yrs ago Sexual - No Risk Substance Abuse - No Risk Tobacco - Denies Tobacco Use Family History Breast cancer: MGM. Hypertension: Father. Skin cancer: Sister and Brother. Stroke: Father. Type II diabetes mellitus: Father. Health Status Family Member(s) Immunizations Vaccine Date Status SARS-CoV-2 (COVID-19) mRNA BNT-162b2 vax 05/09/2021 Recorded SARS-CoV-2 (COVID-19) mRNA BNT-162b2 vax 09/11/2020 Recorded SARS-CoV-2 (COVID-19) mRNA BNT-162b2 vax 08/21/2020 Recorded influenza virus vaccine, inactivated 01/30/2020 Given zoster vaccine, inactivated 03/14/2019 Given zoster vaccine, inactivated 01/09/2019 Given tetanus/diphtheria/pertuss, acel (Tdap) 07/24/2015 Given Recommendations Health Maintenance Pending(in the next year) OverDue Breast Cancer Screening due06/21/22and every 731day Adult Influenza Vaccine due11/20/23and every 1year Due Adult COVID-19 Vaccination due04/02/24Unknown Frequency Colorectal Cancer Screening due04/02/24Unknown Frequency Falls Plan of Care due04/02/24Unknown Frequency Osteoporosis Screening due04/02/24One-time only Pneumococcal Vaccine Older Adults due04/02/24One-time only Due In Future Adult Social Determinants of Health Screening not due until03/21/25and every 366day Satisfied(in the past 1 year) Satisfied Body Mass Index on03/19/24.Satisfied by SHANA Armando Megan E Hepatitis C Screening on11/04/23.Satisfied by Contributor_system, [facility] Diagnostic Results (02/14/2024 14:[address] Angio Chest) FINDINGS: CTA: Diminutive persistent left SVC draining into the coronary sinus. Thoracic aorta: Aortic valvular calcification. Three cusp aortic valve with RCA and left main coronary arteries arising from their respective right and left cusps. Trace coronary artery calcification. Aortic measurements at the following levels are: Annulus: 28mm Sinuses of Valsalva: 37mm Sinotubular junction: 31mm Maximum ascending diameter: 49.7 x 47.9mm Maximum descending diameter: 33 x 32mm [2] (03/19/2024 08:59 EDT Echo TransESOPHageal DAVINA IntraOp - Anest) PRE-OP FINDINGS Left Ventricle Normal LV size and systolic function, EF 55-60%. No regional wall motion abnormalities. Stage II (Pseudonormal) diastolic dysfunction Right Ventricle Moderately dilated RV with mildly reduced systolic function Left Atrium Normal. No thrombus in the SANGEETA, though the appendage is small and complex in shape Right Atrium Normal Atrial Septum (+) PFO identified by agitated saline injection with Valsalva Lipomatous hypertrophy of the IAS Aorta Ascending aortic aneurysm with slight STJ effacement Grade 1 atheroma in the thoracic aorta Vessels Blunted systolic pulmonary venous inflow pattern Pericardium Prominent epicardial fat pad Aortic Valve Heavily calcified bicuspid aortic valve with N-L fusion and severe aortic stenosis, trivial aortic insufficiency Mitral Valve Mild central mitral regurgitation Pulmonary Valve Moderate pulmonic insufficiency Tricuspid Valve Mild tricuspid regurgitation POST-OP FINDINGS Left Ventricle Normal LV size and systolic function, EF 60-65%. No regional wall motion abnormalities Right Ventricle Moderately dilated RV with low-normal systolic function Left Atrium s/p LAAL with very small residual SANGEETA orifice noted on 2D and 3D evaluation Right Atrium Unchanged Aorta Intact post decannulation Aortic Valve s/p 25mm Inspiris bioprosthetic valve in the aortic position which is well seated with no paravalvular regurgitation and expected gradients Mitral Valve Unchanged Pulmonary Valve Unchanged Tricuspid Valve Unchanged [2] [1]Discharge Summary; THEO Maria Kelly Nicole 03/24/2024 11:09 EDT [2]CT Angio Chest; DO Renae Matthew D 02/14/2024 14:57 EDT Electronic Signature on File CC: Tess Stern MD [address] [facility] [address] [facility] [address] CC: Pretty Higuera MD [address] [facility] [address] [facility] [address] CC: Jd Cole DO [address] [facility] 1 [facility] [address] Electronically Reviewed/Signed by: Danae Dickerson PA-C Author Signature Dt/Tm:04/02/2024 03:11 PM Division of Cardiothoracic Surgery [facility] Patient Care team information Care Team Personnel Name: Debby Bravo Position: HIS Supervisor_P Member Role: HIS Lifetime Name: MD Kalen, Pretty Position: Physician - Family Med Member Role: Primary Care Provider Address: [address] [address] [place] Care Team Related Persons Name: JIMBO HOLGUIN Name: SELWYN HOLGUIN Name: LUCIA HOLGUIN
--- OUTSIDE RECORDS SUMMARY | 2024-04-13 23:46 | External Medical Summary | Continuity of Care Document ---
Author Name Unknown Organization [facility] Address [address] [place] [phone] Care Team Providers Care Personal Secretary Name Role Phone Pretty Higuera Primary Care Physician [phone] Encounter [facility] [id number] Date(s): 03/09/24 - 03/09/[address] [phone] Discharge Disposition: Home or Self Care Attending Physician: MD Stern Abdulrhman S Referring Physician: MD Stern Abdulrhman S Allergies, Adverse Reactions, Alerts Substance Criticality Severity Reaction Reaction Severity Status lisinopril 1 Active 1Cough Immunizations Given and Recorded Vaccine Date Status Refusal Reason SARS-CoV-2 (COVID-19) mRNA BNT-162b2 vax 05/09/21 Recorded SARS-CoV-2 (COVID-19) mRNA BNT-162b2 vax 09/11/20 Recorded SARS-CoV-2 (COVID-19) mRNA BNT-162b2 vax 08/21/20 Recorded influenza virus vaccine, inactivated 01/30/20 Give n zoster vaccine, inactivated 03/14/19 Given zoster vaccine, inactivated 01/09/19 Given tetanus/diphtheria/pertuss, acel (Tdap) 07/23/16 G iven Medications aspirin 81 mg oral delayed release tablet Start: 12/21/23 9:44:00 AM EDT, 1 tab, PO, Daily, Disp# 30 tab, Refills: 3, Pharmacy: [id number] Start Date: 12/21/23 Stop Date: 04/19/24 Status: Ordered atorvastatin 80 mg oral tablet Start: 12/21/23 9:45:00 AM EDT, 1 tab, PO, Daily, Disp# 30 tab, Refills: 3, Pharmacy: [id number] Start Date: 12/21/23 Stop Date: 04/19/24 Status: Ordered metoprolol succinate 25 mg oral tablet, extended release Start: 11/04/23 3:59:00 PM EDT, 1 tab, PO, qhs, Disp# 90 tab, Refills: 3, Pharmacy: [id number] Start Date: 11/04/23 Status: Ordered Multi Vitamin+ Start: 03/09/24 10:18:00 AM EDT, 1 tab, PO, qAM Start Date: 03/09/24 Status: Ordered olmesartan 40 mg oral tablet Start: 12/13/23 11:34:00 AM EDT, 1 tab, PO, Daily, Disp# 90 tab, Refills: 3, Pharmacy: [id number] Start Date: 12/13/23 Status: Ordered Sutab oral tablet Start: 11/04/23 4:40:00 PM EDT, See Instructions, Disp# 24 tab, Refills: 0, As directed from writtenendoscopy directions, Pharmacy: [id number] Start Date: 11/04/23 Status: Ordered Problem List Condition Confirmation Course Effective Dates Status Health St atus Informant Adult BMI 38.0-38.9 kg/sq m Confirmed 07/29/11 Active Aortic aneurysm Confirmed Active Aortic valve stenosis Confirmed Active Bicuspid aortic valve Confirmed Active Stroke Confirmed Active Grade II diastolic dysfunction Confirmed Active Family history of melanoma 1 Confirmed Active GERD Confirmed 07/29/11 Active HTN (hypertension) Confirmed Active Mild obstructive sleep apnea 2 Confirmed Active ROUTINE GENERAL MEDICAL EXAMINATION AT A HEALTH CARE FACILITY Confirmed Active Weight disorder Confirmed Active 1sister 2sleep study 2016 Procedures Procedure Date Related Diagnosis Body Site [...] mild obstructive sleep apnea 5? 2009 6normal Results Radiology Reports * Exam Date Time Procedure Performing Provider Status 03/09/24 2:20 PM VL Carotid Duplex Bilateral AntionejacobSoto; Modified Notes: (VL Carotid Duplex Bilateral) Reason For Exam: preprocedural exam VL Carotid Duplex Bilateral [facility] FINAL REPORT Name: DHAVAL MENDEZ : 1960 Visit: [id number] Date: 09 Mar 2024 TYPE OF TEST: Cerebrovascular Duplex REASON FOR TEST Pre-op exam INTERPRETATION/FINDINGS Arterial duplex exam of the extracranial cerebrovascular system reveals: 1. No arterial occlusive disease in the bilateral internal carotid arteries. 2. No hemodynamically significant stenosis in the bilateral external carotid arteries. 3. Antegrade flow in the bilateral vertebral arteries. 4. Normal flow in the bilateral subclavian arteries. *No prior exam available for comparison. IMPRESSION/COMMENTS I have personally reviewed the data relevant to the interpretation of this study. TECHNOLOGIST: JANUARY Paredes, RVT PHYSICIAN: Tammy Valera M.D. Signed: 03/09/2024 02:22 PM Final Dictated by:MD Valera Kristine L Dictated DT/TM:03/09/2024 2:22 Signed by:MD Valera Kristine L Signed (Electronic Signature):03/09/2024 2:22 p Transcribed by:TORREY Social History Social History Type Response Smoking Status Never smoked cigaret mark Sex Sex Representation Female (finding) Patient Care team information Care Team Personnel Name: Debby Bravo Position: HIS Supervisor_P Member Role: HIS Lifetime Name: MD Higuera Madhavi Position: Physician - Family Med Member Role: Primary Care Provider Address: [facility] [place] [address] [place] Care Team Related Persons Name: JIMBO HOLGUIN Name: SELWYN HOLGUIN Name: LUCIA HOLGUIN
--- OUTSIDE RECORDS SUMMARY | 2024-04-13 23:46 | External Medical Summary | Continuity of Care Document ---
Author Name Unknown Organization [facility] [address] [place] [id number] Care Team Providers Care Motor Coach Supervisor Name Role Phone Pretty Higuera Primary Care Physician [phone] Encounter [facility] [id number] Date(s): 03/09/24 - 03/09/24 [facility] [address] [place] [phone] Discharge Disposition: Home or Self Care Attending Physician: MD Lane Sonia J Referring Physician: MD Lane Sonia J Allergies, Adverse Reactions, Alerts Substance Criticality Severity [...] Daily, Disp# 30 tab, Refills: 3, Pharmacy: [id number] Start Date: 12/21/23 Stop Date: 04/19/24 Status: Ordered atorvastatin 80 mg oral tablet Start: 12/21/23 9:45:00 AM EDT, 1 tab, PO, Daily, Disp# 30 tab, Refills: 3, Pharmacy: [id number] Start Date: 12/21/23 Stop Date: 04/19/24 Status: Ordered metoprolol succinate 25 mg oral tablet, extended release Start: 11/04/23 3:59:00 PM EDT, 1 tab, PO, qhs, Disp# 90 tab, Refills: 3, Pharmacy: [facility] Start Date: 11/04/23 Status: Ordered Multi Vitamin+ Start: 03/09/24 10:18:00 AM EDT, 1 tab, PO, qAM Start Date: 03/09/24 Status: Ordered olmesartan 40 mg oral tablet Start: 12/13/23 11:34:00 AM EDT, 1 tab, PO, Daily, Disp# 90 tab, Refills: 3, Pharmacy: [id number] Start Date: 12/13/23 Status: Ordered Sutab oral tablet Start: 11/04/23 4:40:00 PM EDT, See Instructions, Disp# 24 tab, Refills: 0, As directed from writtenendoscopy directions, Pharmacy: [id number] Start Date: 11/04/23 Status: Ordered [...] disorder Confirmed Active 1sister 2sleep study 2016 Diagnosis Diagnosis Type Effective Dates Health Status Cl inical Service Informant Aortic stenosis 03/09/24 Non-Specified Procedures Procedure Date Related Diagnosis Body [...] Date Time Procedure Performing Provider Status 03/09/24 12:10 PM XR Chest 2 Views Damian Reyez; Amadou landry Notes: (XR Chest 2 Views) Reason For Exam: Pre-Op Cardio Thoracic Surgery XR Chest 2 Views EXAMINATION: XR Chest 2 Views CLINICAL HISTORY: I35.0: Nonrheumatic aortic (valve) stenosis; I35.0: Nonrheumatic aortic (valve) stenosis; Pre-Op Cardio Thoracic Surgery COMPARISON: CT chest dated 02/14/2024. FINDINGS: No pneumothorax or pleural effusions. Lungs are clear. Enlargement of the ascending thoracic aorta, better characterized on prior CT chest examination. Normal heart size. The mediastinal silhouette is unchanged. No acute osseous abnormality. There are degenerative changes of the spine. There are cholecystectomy clips. IMPRESSION: No acute pulmonary abnormality. Workstation ID: [id number] Final Dictated by:MD Cornejo Benjamin Dictated DT/TM:03/09/2024 1:40 Signed by:MD Cornejo Benjamin Signed (Electronic Signature):03/09/2024 1:39 p Social History Social History Type Response Smoking Status Never smoked cigaret mark Sex Sex Representation Female (finding) Patient Care team information Care Team Personnel Name: Debby Bravo Position: HIS Supervisor_P Member Role: HIS Lifetime Name: MD Higuera Madhavi Position: Physician - Family Med Member Role: Primary Care Provider Address: [facility] [address] Care Team Related Persons Name: JIMBO HOLGUIN Name: SELWYN HOLGUIN Name: LUCIA HOLGUIN
--- OUTSIDE RECORDS SUMMARY | 2024-04-13 23:46 | External Medical Summary | Continuity of Care Document ---
Author Name Unknown Organization [facility] [address] [facility] Address [address] [place], [place] [phone] Care Team Providers Care Associate Professor Of Music Name Role Phone Pretty Higuera Primary Care Physician [phone] Encounter [facility] [id number] Date(s): 04/04/24 - 04/04/24 [facility] [address], [address] [place] [address] [phone] Encounter Diagnosis PFO (patent foramen ovale)(Discharge Diagnosis) - 04/04/24 Aortic stenosis with bicuspid valve.(Discharge Diagnosis) - 04/04/24 Aortic aneurysm(Discharge Diagnosis) - 04/04/24 Status post aortic valve replacement with tissue(Discharge Diagnosis) - 04/04/24 HTN (hypertension)(Discharge Diagnosis) - 04/04/24 Abnormal ECG(Discharge Diagnosis) - 09/23/23 Hypotension(Discharge Diagnosis) - 09/27/23 Stroke(Discharge Diagnosis) - 04/04/24 S/P AVR(Discharge Diagnosis) - 04/04/24 Discharge Disposition: Home or Self Care Attending Physician: DO Cole Jason D Allergies, Adverse Reactions, Alerts Substance Criticality Severity Reaction Reaction Severity Status lisinopril 1 Active 1Cough Assessment and Plan Extracted from: Title:Cardiology Office Visit Note Author:DO Cole Jason D Date:04/04/24 1.Aortic aneurysm 2.Aortic stenosis with bicuspid valve. 3.HTN (hypertension) 4.PFO (patent foramen ovale) 5.Status post aortic valve replacement with tissue 6.Stroke From my standpoint she is doing well postoperatively. She is completing home PT. From my standpoint there is no reason she cannot restart speech therapy. Once she completes home physical therapy she can then start cardiac rehab and we will make the referral for her. There are no significant murmurs across her aortic valve prosthesis. She will need an echocardiogram in about 10 weeks to have a baseline assessment. Her carotid upstrokes feel brisk. Should be on amiodarone post maze procedure for another 3 weeks and then can stop it. My hope is that by stopping her amiodarone the metallic taste she is having will improve and I discussed this with them. In the short-term she might benefit from something like Marinol. Her blood pressure is very well-controlled. She has had no further TIA or strokelike symptoms. They had a number of questions regards to the surgery and we discussed the pathophysiology and anatomy of a patent foramen ovale. When it comes to why she had her stroke it is really unclear. Could it have come from the PFO or we know that patients with aortic stenosisare atgreater risk of stroke and its unrelated to the valve itself. At this point there is nothing to suggest atrial arrhythmias or hypercoagulable state. She has antibiotics to take prior to the dentist and we discussed avoiding dental care for the first 90 days postop. We also reviewed her weight restrictions for the first 6 weeks after surgery and the second 6 weeks after surgery. She will see Noemi, our nurse practitioner, in a month. I will see her in 10 weeks with a echocardiogram. Sooner if there are any issues. Immunizations Given and Recorded Vaccine Date Status Refusal Reason SARS-CoV-2 (COVID-19) mRNA BNT-162b2 vax 05/09/21 Recorded SARS-CoV-2 (COVID-19) mRNA BNT-162b2 vax 09/11/20 Recorded SARS-CoV-2 (COVID-19) mRNA BNT-162b2 vax 08/21/20 Recorded influenza virus vaccine, inactivated 01/30/20 Give n zoster vaccine, inactivated 03/14/19 Given zoster vaccine, inactivated 01/09/19 Given tetanus/diphtheria/pertuss, acel (Tdap) 07/23/16 G iven Medications amiodarone 200 mg oral tablet Start: 03/24/24 11:04:00 AM EDT, 1 tab, PO, Daily, Disp# 30 tab, Refills: 0, Pharmacy: [facility] [place] Start Date: 03/24/24 Stop Date: 04/23/24 Status: Ordered aspirin 81 mg oral delayed release tablet Start: 12/21/23 9:44:00 AM EDT, 1 tab, PO, Daily, Disp# 30 tab, Refills: 3, Pharmacy: [id number] Start Date: 12/21/23 Stop Date: 04/19/24 Status: Ordered atorvastatin 80 mg oral tablet Start: 12/21/23 9:45:00 AM EDT, 1 tab, PO, Daily, Disp# 30 tab, Refills: 3, Pharmacy: [id number] Start Date: 12/21/23 Stop Date: 04/19/24 Status: Ordered Multi Vitamin+ Start: 03/09/24 10:18:00 AM EDT, 1 tab, PO, qAM Start Date: 03/09/24 Status: Ordered Protonix 40 mg oral delayed release tablet Start: 03/24/24 11:04:00 AM EDT, 1 tab, PO, Daily, Disp# 30 tab, Refills: 0, Pharmacy: [facility] [place] Start Date: 03/24/24 Stop Date: 04/23/24 Status: Ordered Tylenol 325 mg oral tablet Start: 03/24/24 11:04:00 AM EDT, 2 tab, PO, q8h Start Date: 03/24/24 Status: Ordered Mental Status 04/04/24 Barriers to Learning one year None evide nt Problem List Condition Confirmation Course Effective Dates [...] Aortic stenosis with bicuspid valve. Discharge Diagnosis 04/04/24 Status post aortic valve replacement with tissue Discharge Diagnosis 04/04/24 Aortic aneurysm Discharge Diagnosis 04/04/24 HTN (hypertension) Discharge Diagnosis 04/04/24 Stroke Discharge Diagnosis 04/04/24 PFO (patent foramen ovale) Discharge Diagnosis 04/04/24 S/P AVR Discharge Diagnosis 04/04/24 Non-Specified Abnormal ECG Discharge Diagnosis 09/23/23 Non-Specified Hypotension Discharge Diagnosis 09/27/23 Non-Specified Procedures Procedure Date Related Diagnosis Body [...] to oldest [Reference Range]: 1 Patient Weight 103 kg (04/04/24 9:19 AM) Heart Rate 95 bpm (04/04/24 9:19 AM) Blood Pressure 110/68mmHg (04/04/24 9:19 AM) BP Location # 1 Right Arm (04/04/24 9:19 AM) Social History Social History Type Response Smoking Status Never smoked cigaret mark Sex Female Sex Representation Female (finding) Implantable Device List Procedure Provider Procedure Date Device Type Site Unknown Unknown 03/19/24 Unknown Unknown Device Identifier Serial Number Lot or Batch Number Manufacturing Date Expiration Date Distinct Identification Code MRI Safety Implantable Status Assigning Authority Unknown Unknown [id number] Unknown 12/21/26 Unknown Unknown Active Unkno wn Unknown Unknown n/a Unknown 07/25/27 Unknown Unknown Active Unkno wn Unknown Unknown [id number] Unknown 11/19/26 Unknown Unknown Active Unknown EKG study * Contributor_system, MUSE01: VERIFY, PERFORM Event Display: EKG Authored Date: Please click on link to see image. Cardiology Outpatient Note * DO Cole Jason D: PERFORM Event Display: Cardiology Outpt Note Authored Date: Primary Care Provider MD Kalen, Pretty Chief Complaint post op AVR PFO closure dai [place] clip 03/19/24 History of Present Illness She is less than 2 weeks out from her aortic valve replacement and replacement of her aortic root and ascending aorta. She looks remarkably well. her greatest complaint is that of poor tasting food. She notes things just taste metallic and this is occurred since her stroke but got worse after the catheterization and further worsened after open heart surgery. She denies any lightheadedness or dizziness. She has no lower extremity edema. She denies any presyncope or syncope. She has had no falls. She is walking with a walker just for stability. Before surgery she did not need the walker. She is unaware of any palpitations or feeling her heart racing. She she is sleeping in a chairand on the couch is just more comfortable for her. She looks much better than 1 would anticipate her being 2 weeks postop. Review of Systems PMHX: 1. AVR w/#25 mm Inspiris valve, ascending aorta replacement, PFO closure, MAZE and LAAL1 2. Severely stenosed bicuspid aortic valvewith dilated ascending aorta 4.9 cm - Echo at [facility] 11/2023 showed normal LVF with an ejection fraction of 65 to 70%, moderate concentric LVH, mild dilation of the right ventricular chamber, proximal ascending aorta is severely dilated measuring 4.96cm with an index of 2.01 cm/m, aortic root is dilated measuring 3.98 cm with an index of 1.61 cm/m , severe aortic stenosis with peak velocity of 4.18 m/s, mean gradient of 40 mmHg and DI of 0.23. 4. 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 Poorly controlled HTN 6. Short runs of NSVT on Holter at [facility] 10/2023 7. Hypertensive response to exercise on stress echo 09/2023 8. Left hemispheric ischemic infarct 12/15/2023 which was treated with tPA at [facility] with subsequent transfer to [facility] for thrombectomy of the left ICA terminus. Following her thrombectomy she had significant expressive aphasia. MRI showed multiple areas of MCA infarct. 9. RUBEN 10. NML Preop Carotid US Physical Exam Vitals & Measurements HR:95(Monitored) BP:110/68 SpO2:97% WT:103.000kg(Dosing) WT:103kg Patient is awake alert and oriented x3and in no acute distress; her speech is improving HEENT:2+ carotid upstrokes, no evidence of carotid bruits LUNGS:Clear to auscultation bilaterally no rales rhonchi or wheezing HEART:Regular rate and rhythmno appreciable murmurs rubs or gallops ABDOMEN:Soft nontender nondistended positive bowel sounds EXTREMITIES:No evidence of clubbing cyanosis or edema PSYCHIATRIC:Patient's affect appeared appropriate Diagnostic Results POST OP CTA: Aorta: Aortic valve replacement in appropriate position. Three-vessel arch. No contrast extravasation. Pleura and Lungs: Bilateral pleural effusions with associated atelectasis. Moderate right pneumothorax. Central airways: Patent Lymph nodes: No lymphadenopathy Thyroid and Mediastinum: Subcentimeter thyroid nodules. Pneumomediastinum, likely postsurgical. Heart and Great vessels: Trace pericardial effusion. Upper abdomen: Cholecystectomy. Chest wall: Median sternotomy wires. Multilevel degenerative changes of the spine. Emphysema withinthe chest wall and subcutaneous tissues, likely postoperative. IMPRESSION: 1. Moderate right-sided apical pneumothorax.2. Expected postoperative changes of ascending aorta repair. Assessment/Plan 1.Aortic aneurysm 2.Aortic stenosis with bicuspid valve. 3.HTN (hypertension) 4.PFO (patent foramen ovale) 5.Status post aortic valve replacement with tissue 6.Stroke From my standpoint she is doing well postoperatively. She is completing home PT. From my standpoint there is no reason she cannot restart speech therapy. Once she completes home physical therapy she can then start cardiac rehab and we will make the referral for her. There are no significant murmurs across her aortic valve prosthesis. She will need an echocardiogram in about 10 weeks to have a baseline assessment. Her carotid upstrokes feel brisk. Should be on amiodarone post maze procedure for another 3 weeks and then can stop it. My hope is that by stopping her amiodarone the metallic taste she is having will improve and I discussed this with them. In the short-term she might benefit from something like Marinol. Her blood pressure is very well-controlled. She has had no further TIA or strokelike symptoms. They had a number of questions regards to the surgery and we discussed the pathophysiology and anatomy of a patent foramen ovale. When it comes to why she had her stroke it is really unclear. Could it have come from the PFO or we know that patients with aortic stenosisare atgreater risk of stroke and its unrelated to the valve itself. At this point there is nothing to suggest atrial arrhythmias or hypercoagulable state. She has antibiotics to take prior to the dentist and we discussed avoiding dental care for the first 90 days postop. We also reviewed her weight restrictions for the first 6 weeks after surgery andthe second 6 weeks after surgery. She will see Noemi, our nurse practitioner, in a month. I will see her in 10 weeks with a echocardiogram. Sooner if there are any issues. Problem List/Past Medical History Ongoing Adult BMI [...] 3 kids - one local, other in [place] and one in [place] Nutrition/Health - Low Risk Other - Comments: never had colo. last td - ? >10yrs ago Sexual - No Risk Substance Abuse - No Risk Tobacco - Denies Tobacco Use Family History Breast cancer: MGM. Hypertension: Father. Skin cancer: Sister and Brother. Stroke: Father. Type II diabetes mellitus: Father. Health Status Family Member(s) Electronic Signature on File CC: Pretty Higuera MD [address] [place] [address] Electronically Reviewed/Signed by: Jd Cole DO Author Signature Dt/Tm:04/04/2024 10:38 AM [employer] accounts banking representative [facility] [place] [place] [address] JDF Patient Care team information Care Team Personnel Name: Debby Bravo Position: HIS Supervisor_P Member Role: HIS Lifetime Name: MD Kalen, Pretty Position: Physician - Family Med Member Role: Primary Care Provider Address: [address] [place] [address] [place] Care Team Related Persons Name: JIMBO HOLGUIN Name: SELWYN HOLGUIN Name: LUCIA HOLGUIN"
--- OUTSIDE RECORDS SUMMARY | 2024-04-13 23:46 | External Medical Summary | Continuity of Care Document ---
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 Role Phone Pretty Higuera Primary Care Physician [phone] Encounter [facility] [id number] Date(s): 03/09/24 - 03/09/24 [facility] [address], [address], [address] [place] [id number] Encounter Diagnosis Aortic stenosis(Discharge Diagnosis) - 03/08/24 Preop examination(Discharge Diagnosis) - 03/09/24 Discharge Disposition: Home or Self Care Attending Physician: MD Domingo, Mariely Sierra Referring Physician: MD Leena, Tess Ibanez Allergies, Adverse Reactions, Alerts Substance Criticality Severity [...] Daily, Disp# 30 tab, Refills: 3, Pharmacy: [id number] Start Date: 12/21/23 Stop Date: 04/19/24 Status: Ordered atorvastatin 80 mg oral tablet Start: 12/21/23 9:45:00 AM EDT, 1 tab, PO, Daily, Disp# 30 tab, Refills: 3, Pharmacy: [id number] Start Date: 12/21/23 Stop Date: 04/19/24 Status: Ordered metoprolol succinate 25 mg oral tablet, extended release Start: 11/04/23 3:59:00 PM EDT, 1 tab, PO, qhs, Disp# 90 tab, Refills: 3, Pharmacy: [id number] Start Date: 11/04/23 Status: Ordered Multi Vitamin+ Start: 03/09/24 10:18:00 AM EDT, 1 tab, PO, qAM Start Date: 03/09/24 Status: Ordered olmesartan 40 mg oral tablet Start: 12/13/23 11:34:00 AM EDT, 1 tab, PO, Daily, Disp# 90 tab, Refills: 3, Pharmacy: [facility] Start Date: 12/13/23 Status: Ordered Sutab oral tablet Start: 11/04/23 4:40:00 PM EDT, See Instructions, Disp# 24 tab, Refills: 0, As directed from writtenendoscopy directions, Pharmacy: [id number] Start Date: 11/04/23 Status: Ordered Mental Status 03/09/24 Barriers to Learning one year None evide nt Mandatory Health Literacy Documentation Yes Communication Barrier Present No Health Literacy Communication Barriers N ever Primary Language Mongolian Problem List Condition Confirmation Course Effective Dates [...] Health Status Clinical Service Informant Aortic stenosis Discharge Diagnosis 03/08/24 Non-Specified Preop examination Discharge Diagnosis 03/09/24 Procedures Procedure Date Related Diagnosis Body Site [...] Most recent to oldest [Reference Range]: 1 Height 167 cm (03/09/24 10:20 AM) Patient Weight 113.1 kg (03/09/24 10:20 AM) Body Mass Index 40.55 kg/m2 (03/09/24 10:20 AM) Temperature [36.5-37.9 DegC] 36.1 DegC *LOW* (03/09/24 10:20 AM) Heart Rate 64 bpm (03/09/24 10:20 AM) Respiratory Rate 16 br/min (03/09/24 10:20 AM) Blood Pressure 145/78mmHg (03/09/24 10:20 AM) Mean Blood Pressure 90 mmHg (03/09/24 10:20 AM) Cuff Pulse Pressure 67 mmHg (03/09/24 10:20 AM) BP Location # 1 Left Arm (03/09/24 10:20 AM) Social History Social History Type Response Smoking Status Never smoked cigaret mark Sex Sex Representation Female (finding) EKG study * Contributor_system, [id number]: VERIFY, PERFORM Event Display: EKG Authored Date: Please click on link to see image. Anes H&P * MD Domingo, Mariely Sierra: MODIFY MD Lane Sonia J: MODIFY, SIGN MD Lane Sonia J: SIGN, VERIFY MD Lane Sonia J: VERIFY, MODIFY, SIGN Event Display: Anes H&P Authored Date: [id number] Patient: DHAVAL MENDEZ Age: 63 years Sex: Female : 1960 Associated Diagnoses: None Author: LUCAS Peng, Tammy Mccarthy Preoperative Information Anesthesia Preop Info: Procedure: AORTIC VALVE REPLACEMEN, ASCENDING AORTA REPAIR/REPLACE Date: 03/19/24 07:00 Surgeons: MD Stern Abdulrhman S Diagnosis: AORTIC STENOSIS AORTIC ANEURYSM . History of Present Illness 63 y/o F with medical history of aortic aneurysm (5cm), bicuspid aortic valve with severe stenosis.Per surgical note, she began the work up necessary for her AVR when she developed a stroke that required systemic thrombolytics and thrombectomy. During that event at OSH she was evaluated with a TTEthat showed a normal LVF with an ejection fraction of 65 to 70%, moderate concentric LVH, mild dilation of the right ventricular chamber, proximal ascending aorta is severely dilated measuring 4.96 cm with an index of 2.01 cm/m, aortic root is dilated measuring 3.98 cm with an index of 1.61 cm/m, severe aortic stenosis with peak velocity of 4.18 m/s, mean gradient of 40 mmHg and DI of 0.23. She is now scheduled for above COVID vaccine completed + boosters X 2 Anesthesia History PONV: Denies. History of Motion Sickness: Denies. Patient Complications: Negative. Family History of Anesthesia Problems: Negative. Functional Capacity 1-3 METS = Poor: Walks slowly, Stairs slowly. Symptoms: Denies SOB/CP, easily fatigues. Medical History Cardiovascular: F/b [facility], See studies or note below. Hypertension: Beta Mitch, ARB, BP 145/78 today. Valves: Aortic stenosis, Severe, aortic aneurysm (5cm). Pulmonary: Obstructive Sleep Apnea: Uses CPAP, Intermittently. Neurologic: CVA: Date 12/15/23, Aspirin, left hemispheric ischemic infarct which was treated with tPA. At [facility] she had an NIH of 22 with right- sided symptoms and aphasia. She was transferred to [facility] for thrombectomy of the left ICA terminus. Following her thrombectomy she had significant expressive aphasia. MRI showed multiple areas of MCA infarct. Gastrointestinal: Obesity: Class III obesity (BMI >=40)), BMI: 41. Health Status Allergies: Allergic Reactions (Selected) Severity Not Documented Lisinopril- No reactions were documented.. Histories Procedure History: Thrombectomy (SNOMED CT [id number]) on 12/15/2023 at 63 Years. Mammogram (SNOMED CT [id number]) on 06/20/2020 at 60 Years. Comments: 06/24/2020 09:55 AMANDA Waldrop LPN, Katie ACR BI RADS Cat 1 NEGATIVE Left knee x-ray (SNOMED CT [id number]) on 08/17/2018 at 58 Years. Comments: 08/18/2018 15:36 EDT - JV Casillas Lindsey Minimal degenerative change. Trace joint effusion. No evidence for acute bony pathology. Cholecystectomy (SNOMED CT [id number]) on 08/18/2015 at 55 Years. Mammogram (SNOMED CT [id number]) on 08/14/2015 at 55 Years. Comments: 08/15/2015 11:28 JUANCARLOST - JV Calixto Vanessa T No malignancy. One year screening recommended. Full sleep study (SNOMED CT [id number]) on 08/13/2015 at 55 Years. Comments: 08/19/2015 09:11 JUANCARLOST Briseida Da Silva LPN, Lynne NovaSom - mild obstructive sleep apnea DNS (deviated nasal septum) (SNOMED CT [id number]) on 07/24/2015 at 55 Years. Comments: 07/24/2015 08:49 AMANDA Higuera MD, Madhavi ? 2010 Mammogram (SNOMED CT [id number]) on 07/17/2012 at 52 Years. Comments: 07/24/2015 08:46 AMANDA Higuera MD, Madhavi normal D&C. Lithotripsy (SNOMED CT [id number]).. Social History: Cigarrette Smoker? Never smoked cigarettes Other Tobacco Use: Never used other tobacco products Alcohol: Denies Recreational Drugs: Denies . Physical Examination VS/Measurements: 03/09/2024 10:20 Temp: 36.1 Pulse: 64 BP: 145/78 MAP: 90 RR: 16 SPO2: 100 FIO2: Wt(kg): 113.1 BMI: 41 Height(cm): 167 . General: Alert, Oriented, Obese, accompanied by her daughter. Airway: Mallampati classification: III (soft palate, base of uvula visible). Hyomental Distance: > 40mm. Mouth: Within normal limits. Teeth: Multiple capped molars. Head: Normocephalic. Neck: Supple, Good extension, No masses, Thick. Trachea: Midline. Respiratory: CTA bilaterally, No wheezes, No ronchi. Cardiovascular: Heart: RRR, 2/6, Murmur, RUSB. Edema: None. Gastrointestinal: Obese. Musculoskeletal: Generalized weakness. Neurologic: expressive aphasia. Assessment and Plan Medications: Pre-Surgery Medication Instructions Please bring this medication list with you to the hospital on the day of surgery. Make a note of the date and time of the last dose taken prior to surgery for each medication. It is very important we have an accurate list of your medications prior to your procedure. Please review this medication list with your home medications and call [phone] prior to your procedure with any changes to your prescription medications. aspirin (aspirin 81 mg oral delayed release tablet) 1 tab by mouth once daily . Follow pre-procedure instructions from your surgeon: hold the morning of surgery atorvastatin (atorvastatin 80 mg oral tablet) 1 tab by mouth once daily . continue as usual metoprolol (metoprolol succinate 25 mg oral tablet, extended release) 1 tab by mouth at bedtime . take the night before as usual multivitamin (Multi Vitamin+) 1 tab by mouth once a day (in the morning) . hold for 7 days prior to procedure olmesartan (olmesartan 40 mg oral tablet) 1 tab by mouth once daily . Follow pre-procedure instructions from your surgeon: hold for 48 hours prior to surgery . Does patient use aspirin?: Yes. Does patient use beta blockers?: Yes. Does patient use EFREM- I/ARB drugs?: Yes. Does patient use narcotic analgesics for chronic pain? (>1 month AND >30mg morphine or equivalent daily): No. Anesthesiologist Assessment and Plan Problems: No previous anesthetic complications, No a/w concerns. Cardiac risk factors: High risk surgery, CVA. Risk of major adverse cardiac event (Revised Cardiac Risk Index): 3 or more = 11%. Cardiovascular risk associated with the procedure: Elevated (>=1%). Disposition: No further testing or evaluation indicated preoperatively, may proceed with procedure as scheduled. ASA Classification: Class III. Anesthetic Plan: Induction discussed: Intravenously. Airway plan discussed: Oral endotracheal tube. Special monitoring discussed: Arterial line, Central venous catheter, Pulmonary artery catheter, Neuromonitoring, Transesophageal Echocardiography. Risks discussed: Nausea-vomiting, Headache, Sore throat, Dental injury, Eye injury, Allergic reaction, Serious complications, Nerve damage. Anesthesia provided by other physicians and anesthesia team: We discussed care by cardiac anesthesia team. . Special techniques and precautions discussed: Postoperative ICU, Mechanical ventilation. Review / Management Laboratory Results: Lab results 03/06/2024 08:00 EDT Na (wb), POC 142 mmol/L K (wb), POC 3.9 mmol/L Glu (wb), POC by IStat 99 mg/dL Ion Ca(wb), POC 1.26 mmol/L Hgb, POC 13.9 g/dL Hct, POC 41 % pH (v), POC 7.322 unit pCO2 (v), POC 50.8 mmHg pO2 (v), POC 20 mmHg HCO3(v), POC 26.6 mmol/L Base Deficit (v), POC 1 mmol/L SaO2(v), POC 30 % Temp(v) 36.0 C . Ordered Today: Per surgeon. EK03/09/24 NSR. LAD. Mod. voltage criteria for LVH. Anterolateral infarct, age undetermined . Diagnostics: Cardiovascular Catheterization Report 03/06/24 Impression * Mid LAD has 40% stenosis that is not hemodynamically significant by physiologic assessment (FFRangio = 0.97). Otherwise, the remaining coronary arteries have mild luminal irregularities. * Uncomplicated right radial artery access (6 Fr Glidesheath Slender sheath). Recommendation 1. Optimal medical therapy and aggressive risk factor modification. 2. Management of ascending aortic aneurysm and severe bicuspid aortic valve stenosis per CT surgery. Echo Stress, Exercise 10/19/23 Summary 1. Negative Exercise Stress ECG and Echocardiogram for ischemia at 91% MPHR. 2. Resting echocardiogram findings: Small LV with normal systolic function and no RWA; EF 65%. Bicuspid aortic valve with moderate to severe stenosis. 3. The degree of aortic stenosis appears moderate to severe (no change 06/2023). 4. Heart rate recovery 27 beats at 1 minute. 5. Significant hypertensive response to exercise, test terminated for hypertension. Headache and SOB accompanied this hypertension. Headache and SOB resolved completely as blood pressure returned closer to baseline. 6. Pt did not restart her olmesartan as requested two weeks ago. These blood pressures were discussed with cardiology provider. Pt had olmesartan with her and self administered olmesartan 20 mg po prior to leaving the stress lab. . Orders placed for day of surgery: None. Pending issues: None. Patient Education Patient Education: [facility] ([facility]). Electronic Signature on File Electronically Reviewed/Signed by: Tammy Peng, MSN, MAINTENANCE MACHINIST Author Signature Dt/Tm:03/09/2024 10:54 AM [facility] Electronically Reviewed/Signed by: Mariely Lane MD Cosigner Signature Dt/Tm: 03/09/2024 11:24 AM Department of Anesthesia [facility] Patient Care team information Care Team Personnel Name: Debby Bravo Position: HIS Supervisor_P Member Role: HIS Lifetime Name: MD Higuera Madhavi Position: Physician - Family Med Member Role: Primary Care Provider Address: [address] [place] [address] [place] Care Team Related Persons Name: JIMBO HOLGUIN Name: SELWYN HOLGUIN Name: LUCIA HOLGUIN
--- OUTSIDE RECORDS SUMMARY | 2024-04-13 23:46 | External Medical Summary | Continuity of Care Document ---
Author Name Unknown Organization [facility] [address] [place] [id number] Care Team Providers Care Head Of Cytogenetics Name Role Phone Pretty Higuera Primary Care Physician [phone] [id number] Date(s): 03/09/24 - 03/09/24 [facility] [address] [place] [id number] Discharge Disposition: Home or Self Care Attending Physician: MD Lane Sonia J Referring Physician: MD Leena, Tess Ibanez Allergies, [...] vaccine, inactivated 01/09/19 Given tetanus/diphtheria/pertuss, acel (Tdap) 3/3/16 G iven Medications aspirin 81 mg oral delayed release tablet Start: 12/21/23 9:44:00 AM EDT, 1 tab, PO, Daily, Disp# 30 tab, Refills: 3, Pharmacy: [facility] Start Date: 12/21/23 Stop Date: 04/19/24 Status: Ordered atorvastatin 80 mg oral tablet Start: 12/21/23 9:45:00 AM EDT, 1 tab, PO, Daily, Disp# 30 tab, Refills: 3, Pharmacy: [facility] Start Date: 12/21/23 Stop Date: 04/19/24 Status: Ordered metoprolol succinate 25 mg oral tablet, extended release Start: 11/04/23 3:59:00 PM EDT, 1 tab, PO, qhs, Disp# 90 tab, Refills: 3, Pharmacy: [facility] Start Date: 11/04/23 Status: Ordered Multi Vitamin+ Start: 03/09/24 10:18:00 AM EDT, 1 tab, PO, qAM Start Date: 03/09/24 Status: Ordered olmesartan 40 mg oral tablet Start: 12/13/23 11:34:00 AM EDT, 1 tab, PO, Daily, Disp# 90 tab, Refills: 3, Pharmacy: [facility] Start Date: 12/13/23 Status: Ordered Sutab oral tablet Start: 11/04/23 4:40:00 PM EDT, See Instructions, Disp# 24 tab, Refills: 0, As directed from writtenendoscopy directions, Pharmacy: [facility] Start Date: 11/04/23 Status: Ordered [...] obstructive sleep apnea 5? 2009 6normal Results Laboratory List Name Date Blood Type (ABO/Rh) (ABO/RH) 03/09/24 Pre-Op 14 Day Type/Antibody Screen (EXTE NDED PREOP TSC) 03/09/24 Complete Blood Count w Differential (CBC ,DIFFH) 03/09/24 Electrolyte Levels (ELECTROLYTES) Hemoglobin A1C (HEMOGLOBIN, A1C) 4 INR, PTT (PTP,PTT) 03/09/24 Renal Profile (RENAL PROFILE) 03/09/24 Urine Analysis w/ Reflexed Microscopic. (URINE W/REFLEX MICR) 03/09/24 Most recent to oldest [Refer ence Range]: 1 2 ABO/Rh A POSITIVE *Unknown* (03/09/24 11:53 AM) A POSITIVE *Unknown* (03/09/24 11:50 AM) Antibody Scr NEGATIVE *Unknown* (03/09/24 11:53 AM) Expires at 0600AM on 03/20/2024 *Unknown* (03/09/24 11:53 AM) # Units 0 (03/09/24 11:53 AM) R Number NRQ *Unknown* (03/09/24 11:53 AM) eGFR CKD-EPI [>60 mL/min/1.7 3 m2] 75 mL/min/1.73 m2 (03/09/24 11:35 AM) Estimated Average Glucose 103 mg/dL (03/09/24 11:35 AM) Eligible for XM Extension? [PTE-PTE] Patient is Eligible for Crossmatch Extension *Unknown* (03/09/24 11:53 AM) Estimated CrCl 82.85 mL/min (03/09/24 1:11 PM) MPV [9.0-12.2 fL] 9.2 fL (03/09/24 11:35 AM) Immature Gran% 0.2 % (03/09/24 11:35 AM) Neut% 57.8 % (03/09/24 11:35 AM) Lymph% 30.5 % (03/09/24 11:35 AM) [place]% 8.5 % (03/09/24 11:35 AM) Baso% 0.9 % (03/09/24 11:35 AM) Eos% 2.1 % (03/09/24 11:35 AM) Immat Gran, Abs [0-0.4 K/uL] 0.01 K/uL (03/09/24 11:35 AM) Neut, Abs [2.0-7.7 K/uL] 3.83 K/uL (03/09/24 11:35 AM) Lymph, Abs [1.0-3.4 K/uL] 2.02 K/uL (03/09/24 11:35 AM) [place], Abs [0-1.0 K/uL] 0.56 K/uL (03/09/24 11:35 AM) Baso, Abs [0-0.1 K/uL] 0.06 K/uL (03/09/24 11:35 AM) Eos, Abs [0-0.5 K/uL] 0.14 K/uL (03/09/24 11:35 AM) Type of Diff: AUTO *Unknown* (03/09/24:35 AM) RDW [11.5-14.2 %] 13.2 % (03/09/24 11:35 AM) Component RED CELLS *Unknown* (03/09/24 11:53 AM) Calcium Oxalate Crystal (u) MANY *Unknown* (03/09/24:34 AM) Squamous Epithelial Cells (u) FEW *Unknown* (03/09/24:34 AM) Mucous (u) MANY *Unknown* (03/09/24:34 AM) Anion Gap [5-14 mmol/L] 15 mmol/L *HI* (03/09/24 11:35 AM) Bact (u) [NONE-NONE] FEW *Abnormal* (03/09/24:34 AM) Bili (u) [NEG] NEGATIVE 1 *Unknown* (03/09/24:34 AM) BUN [6-23 mg/dL] 18 mg/dL (03/09/24 11:35 AM) Cl- [98-107 mmol/L] 103 mmol/L (03/09/24 11:35 AM) HCO3 [22-29 mmol/L] 22 mmol/L (03/09/24 11:35 AM) Cret [0.60-1.00 mg/dL] 0.86 mg/dL (10/18/24 11:35 AM) HbA1c [<5.7 %] 5.2 % 2 (03/09/2435 AM) Hct [35-44 %] 40.8 % (03/09/24 AM) Hgb [11.7-15.0 g/dL] 13.6 g/dL (03/09/2435 AM) INR [0.9-1.1] 1.1 3 (03/09/2435 AM) K [3.5-5.1 mmol/L] 3.9 mmol/L (03/09/2435 AM) Ketones [NEG mg/dL] TRACE mg/dL *Abnormal* (03/09/24 AM) Leuk Est [NEG] NEGATIVE 4 *Unknown* (03/09/24 AM) MCH [28-33 pg] 29.2 pg (03/09/2435 AM) MCHC [32-36 g/dL] 33.3 g/dL (03/09/2435 AM) MCV [81-96 fL] 87.7 fL (03/09/2435 AM) Na [136-145 mmol/L] 140 mmol/L (03/09/24:35 AM) Nitrite (u) [NEG] NEGATIVE 5 *Unknown* (03/09/24 AM) Plts [150-350 K/uL] 317 K/uL (03/09/24:35 AM) PT [12.0-14.2 seconds] 14.1 seconds (03/09/2435 AM) PTT [23-35 seconds] 32 seconds (03/09/24:35 AM) RBC [3.90-5.00 M/uL] 4.65 M/uL (03/09/24:35 AM) Appear (u) CLOUDY *Unknown* (03/09/24 AM) Color (u) DIMAS *Unknown* (03/09/24 AM) Glu (u) [NEG mg/dL] NEGATIVE mg/dL 6 (03/09/2434 AM) Hgb (u) [NEG] NEGATIVE 7 *Unknown* (03/09/24 AM) pH (u) [5.0-8.0 unit] 5.0 unit (03/09/24 11:34 AM) Prot (u) [NEG mg/dL] NEGATIVE mg/dL (03/09/24 11:34 AM) RBC (u) [0-4 /HPF] 0-4 /HPF (03/09/24 11:34 AM) Urobili [0.1-1.0 EU/dL] 2.0 EU/dL *HI* (03/09/24 11:34 AM) SG [1.005-1.030] 1.027 (03/09/24 11:34 AM) WBC (u) [0-4 /HPF] 0-4 /HPF (03/09/24 11:34 AM) WBC [4.0-10.4 K/uL] 6.62 K/uL (03/09/24 11:35 AM) 1Result Comment: POSSIBLE INTERFERING SUBSTANCE. ASCORBIC ACID DETECTED IN URINE. RESULTS MAY BEUNRELIABLE. 2Result Comment: ADA Recommended [place] Reference Range: Normal: <5.7% Prediabetes: 5.7-6.4% Diabetes: >6.4% Hb A1c results in patients with severe anemia or recent RBC transfusion are unreliable and do not represent the patient glycemic control. 3Result Comment: Suggested therapeutic range for low-intensity Coumadin therapy for venous thromboembolism is INR 2.0-3.0 (ex: atrial fibrillation, history of TIA/stroke). For high risk patients, the suggested therapeutic range is INR 2.5-3.5 (ex: mechanical prosthetic valves). 4Result Comment: POSSIBLE INTERFERING SUBSTANCE. ASCORBIC ACID DETECTED IN URINE. RESULTS MAY BEUNRELIABLE. 5Result Comment: POSSIBLE INTERFERING SUBSTANCE. ASCORBIC ACID DETECTED IN URINE. RESULTS MAY BEUNRELIABLE. 6Result Comment: POSSIBLE INTERFERING SUBSTANCE. ASCORBIC ACID DETECTED IN URINE. RESULTS MAY BEUNRELIABLE. 7Result Comment: POSSIBLE INTERFERING SUBSTANCE. ASCORBIC ACID DETECTED IN URINE. RESULTS MAY BEUNRELIABLE. Social History Social History Type Response Smoking Status Never smoked cigaret mark Sex Sex Representation Female (finding) Patient Care team information Care Team Personnel Name: Debby Bravo Position: HIS Supervisor_P Member Role: HIS Lifetime Name: MD Kalen, Pretty Position: Physician - Family Med Member Role: Primary Care Provider Address: [address] [place], [place] [id number] [place] Care Team Related Persons Name: JIMBO HOLGUIN Name: SELWYN HOLGUIN Name: LUCIA HOLGUIN
--- OUTSIDE RECORDS SUMMARY | 2024-04-13 23:46 | External Medical Summary | Continuity of Care Document ---
Author Name Unknown Organization [facility] Address [address] [place] [phone] Care Team Providers Care Certified Surgical Technologist Name Role Phone Pretty Higuera Primary Care Physician [phone] Encounter [facility] [id number] Date(s): 03/19/24 - 03/24/[address] [phone] Encounter Diagnosis Aortic stenosis with bicuspid valve(Discharge Diagnosis) - 03/18/24 Aortic aneurysm(Discharge Diagnosis) - 03/24/24 Discharge Disposition: Home w/ Home Health Care Attending Physician: MD Stern Abdulrhman S Admitting Physician: MD Stern Abdulrhman S Allergies, Adverse Reactions, Alerts Substance Criticality Severity Reaction Reaction Severity Status lisinopril 1 Active 1Cough Functional Status 03/24/24 Neurological Symptoms Other: aphasia: pr evious stroke ADLs Minimal assistance Facial Symmetry Symmetric Gait Steady Swallowing Difficulty None Level of Consciousness Neuro Alert Hallucinations Present None History of Fall in Last 3 Months Dickerson N o Presence of Secondary Diagnosis Dickerson Ye s Use of Ambulatory Aid Dickerson Crutches/can e/walker IV/Heparin Lock Fall Risk Dickerson Yes Gait/Transferring Fall Risk Dickerson Normal /bedrest/immobile Mental Status Fall Risk Dickerson Oriented t o own ability Dickerson Fall Risk Score 50 Dickerson Fall Risk High risk Speech Pattern Aphasic, Delayed Immunizations Given and Recorded Vaccine Date Status [...] Daily, Disp# 30 tab, Refills: 0, Pharmacy: [facility] Start Date: 03/24/24 Stop Date: 04/23/24 Status: Ordered aspirin 81 mg oral delayed release tablet Start: 12/21/23 9:44:00 AM EDT, 1 tab, PO, Daily, Disp# 30 tab, Refills: 3, Pharmacy: [id number] Start Date: 12/21/23 Stop Date: 04/19/24 Status: Ordered atorvastatin 80 mg oral tablet Start: 12/21/23 9:45:00 AM EDT, 1 tab, PO, Daily, Disp# 30 tab, Refills: 3, Pharmacy: [id number] Start Date: 12/21/23 Stop Date: 04/19/24 Status: Ordered cyclobenzaprine 5 mg oral tablet Start: 03/24/24 11:07:00 AM EDT, 1 tab, PO, tid, Disp# 9 tab, Refills: 0, PRN: pain - moderate (4-6), Pharmacy: [facility] Start Date: 03/24/24 Stop Date: 03/27/24 Status: Ordered Flomax 0.4 mg oral capsule Start: 03/24/24 11:05:00 AM EDT, 1 cap, PO, Daily, Disp# 5 cap, Refills: 0, Pharmacy: [facility] Start Date: 03/24/24 Stop Date: 03/29/24 Status: Ordered HumaLOG Sliding Scale Moderate Dose Range: SSI, injection, subQ, 03/21/24 10:00:00 PM EDT, 03/21/24 9:58:11 PM EDT, Estimated correction need for patients using total insulin daily dose between 61 and 100 units., 03/20/24 23:13:00EDT Start Date: 03/21/24 Stop Date: 03/21/24 Status: Completed Lasix 40 mg oral tablet Start: 03/24/24 11:06:00 AM EDT, 1 tab, PO, bid (6a - 2p), Disp# 14 tab, Refills: 0, Pharmacy: [facility] Start Date: 03/24/24 Stop Date: 03/31/24 Status: Ordered Multi Vitamin+ Start: 03/09/24 10:18:00 AM EDT, 1 tab, PO, qAM Start Date: 03/09/24 Status: Ordered potassium chloride 20 mEq oral tablet, extended release Start: 03/24/24 11:05:00 AM EDT, 2 tab, PO, bid, Disp# 28 tab, Refills: 0, Pharmacy: [facility] Start Date: 03/24/24 Stop Date: 03/31/24 Status: Ordered Protonix 40 mg oral delayed release tablet Start: 03/24/24 11:04:00 AM EDT, 1 tab, PO, Daily, Disp# 30 tab, Refills: 0, Pharmacy: [facility] Start Date: 03/24/24 Stop Date: 04/23/24 Status: Ordered Tylenol 325 mg oral tablet Start: 03/24/24 11:04:00 AM EDT, 2 tab, PO, q8h Start Date: 03/24/24 Status: Ordered Mental Status 03/20/24 Primary Language Albanian 03/20/24 Communication Barrier Present Yes Problem List Condition Confirmation Course Effective Dates [...] Status Cl inical Service Informant Aortic stenosis with bicuspid valve Discharge Diagnosis 03/18/24 Non-Specified Aortic aneurysm Discharge Diagnosis 03/24/24 Non-Specified Procedures Procedure Date Related Diagnosis Body [...] 2009 6normal Results Laboratory List Name Date Basic Metabolic Panel (BMP) 03/24/24 Complete Blood Count (CBC) 03/24/24 Magnesium Level 03/24/24 Potassium Level, Whole Blood (K Level, W hole Blood) 03/23/24 Magnesium Level 03/23/24 Potassium Level, Whole Blood (K Level, W hole Blood) 03/23/24 Magnesium Level 03/23/24 Basic Metabolic Panel (BMP) 03/23/24 Complete Blood Count (CBC) 03/23/24 Glucose Meter (GLUCOSE METER) 03/22/24 Potassium Level, Whole Blood (K Level, W hole Blood) 03/22/24 Basic Metabolic Panel (BMP) 03/22/24 Complete Blood Count (CBC) 03/22/24 Glucose Meter (GLUCOSE METER) 03/21/24 Glucose Meter (GLUCOSE METER) 03/21/24 Calcium, Ionized (Ionized Calcium) 03/21 Nephrology Panel 03/21/24 Calcium, Ionized 03/20/24 Calcium, Ionized (Ionized Calcium) 03/20 Arterial Blood Gases w/ Hgb and O2 Sat 1 Phosphorus Level 03/20/24 Prothrombin Time w/ INR (Protime/INR) Blood Type/Antibody Screen ( for possible transfusion) (Type and Screen (for possible transfusion)) 03/20/24 Arterial Blood Gases w/ Hgb and O2 Sat ( ABGs, w/ Hgb and O2 Sat) 03/19/24 Arterial Blood Gases w/ Hgb and O2 Sat 1 MRSA Surveillance (Nasal Swab) 03/19/24 IStat Testing, Arterial (OR) (I-STAT CONTRERAS EL,ART(OR)) 03/19/24 Fibrinogen 03/19/24 Nephrology Panel 03/19/24 Partial Thromboplastin Time (PTT) Prothrombin Time w/ INR (PT/INR) 4 IStat Testing, Arterial (OR) (I-STAT CONTRERAS EL,ART(OR)) 03/19/24 ACT, by IStat (OR) (ACT KAOLIN ISTAT (OR )) 03/19/24 IStat Testing, Arterial (OR) (I-STAT CONTRERAS EL,ART(OR)) 03/19/24 ACT, by IStat (OR) (ACT KAOLIN ISTAT (OR )) 03/19/24 ACT, by IStat (OR) (ACT KAOLIN ISTAT (OR )) 03/19/24 IStat Testing, Venous (OR) (I-STAT PANEL ,MIRA(OR)) 03/19/24 IStat Testing, Arterial (OR) (I-STAT CONTRERAS EL,ART(OR)) 03/19/24 IStat Testing, Arterial (OR) (I-STAT CONTRERAS EL,ART(OR)) 03/19/24 Most recent to oldest [Reference Range]: 1 2 3 Hct, POC [38-51 %] 31 % *LOW* (03/19/24 11:41 AM) 26 % *LOW* (03/19/24 10:48 AM) 23 % *LOW* (03/19/24 9:57 AM) Hgb, POC [12-17 g/dL] 10.5 g/dL *LOW* (03/19/24 11:41 AM) 8.8 g/dL *LOW* (03/19/24 10:48 AM) 7.8 g/dL *LOW* (03/19/24 9:57 AM) ABO/Rh A POSITIVE (03/20/24 3:09 AM) Antibody Scr NEGATIVE (03/20/24 3:09 AM) Expires at 0600AM on 03/23/2024 (03/20/24 3:09 AM) # Units 0 (03/20/24 3:09 AM) R Number NRQ (03/20/24 3:09 AM) eGFR CKD-EPI [>60 mL/min/1.73 m2] >90 mL/min/1.73 m2 (03/24/24 3:23 AM) >90 mL/min/1.73 m2 (03/23/24 5:05 AM) >90 mL/min/1.73 m2 (03/22/24 3:21 AM) Base Deficit, POC [0-2 mmol/L] 3 mmol/L *HI* (03/19/24 11:41 AM) 1 mmol/L (03/19/24 8:34 AM) 2 mmol/L (03/19/24 7:15 AM) Base Deficit (v), POC [0-2 mmol/L] 2 mmol/L (03/19/24 8:53 AM) Blood Glucose [70-120 mg/dL] 122 mg/dL 1 *HI* (03/21/24 9:58 PM) SaO2(a), POC [95-98 %] 99 % *HI* (03/19/24 11:41 AM) 100 % *HI* (03/19/24 10:48 AM) 100 % *HI* (03/19/24 9:57 AM) SaO2(v), POC [20-90 %] 84 % (03/19/24 8:53 AM) FiO2 (a) 60% % (03/19/24 3:03 PM) 60% % (03/19/24 12:45 PM) O2 Flow (a) 3 L/min (03/20/24 3:09 AM) Estimated CrCl 101.79 mL/min (03/24/24 4:07 AM) 118.75 mL/min (03/22/24 4:11 AM) 98.96 mL/min (03/21/24 3:56 AM) MPV [9.0-12.2 fL] 9.6 fL (03/24/24 3:23 AM) 10.2 fL (03/23/24 5:05 AM) 10.3 fL (03/22/24 3:21 AM) RDW [11.5-14.2 %] 14.0 % (03/24/24 3:23 AM) 14.0 % (03/23/24 5:05 AM) 14.2 % (03/22/24 3:21 AM) Base Deficit 2.1 mmol/L (03/20/24 3:09 AM) 3.6 mmol/L (03/19/24 3:03 PM) 2.6 mmol/L (03/19/24 12:45 PM) K, wb [3.5-5.0 mmol/L] 4.2 mmol/L (03/23/24 4:50 PM) 3.6 mmol/L (03/23/24 11:59 AM) 3.5 mmol/L (03/22/24 6:40 AM) pH (a), POC [7.35-7.45 unit] 7.422 unit (03/19/24 11:41 AM) 7.431 unit (03/19/24 10:48 AM) 7.386 unit (03/19/24 9:57 AM) pCO2 (a), POC [35-45 mmHg] 32.6 mmHg *LOW* (03/19/24 11:41 AM) 36.7 mmHg (03/19/24 10:48 AM) 40.9 mmHg (03/19/24 9:57 AM) pO2 (a), POC [80-105 mmHg] 156 mmHg *HI* (03/19/24 11:41 AM) 302 mmHg *HI* (03/19/24 10:48 AM) 395 mmHg *HI* (03/19/24 9:57 AM) Base XS(a), POC [0-3 mmol/L] 0 mmol/L (03/19/24 10:48 AM) 0 mmol/L (03/19/24 9:57 AM) HCO3(a), POC [22-26 mmol/L] 21.2 mmol/L *LOW* (03/19/24 11:41 AM) 24.4 mmol/L (03/19/24 10:48 AM) 24.5 mmol/L (03/19/24 9:57 AM) Ion Ca(wb), POC [1.12-1.32 mmol/L] 1.11 mmol/L *LOW* (03/19/24 11:41 AM) 1.14 mmol/L (03/19/24 10:48 AM) 1.00 mmol/L *LOW* (03/19/24 9:57 AM) Na (wb), POC [138-146 mmol/L] 141 mmol/L (03/19/24 11:41 AM) 140 mmol/L (03/19/24 10:48 AM) 142 mmol/L (03/19/24 9:57 AM) K (wb), POC [3.5-4.9 mmol/L] 3.5 mmol/L (03/19/24 11:41 AM) 3.5 mmol/L (03/19/24 10:48 AM) 4.0 mmol/L (03/19/24 9:57 AM) pH (v), POC [7.31-7.41 unit] 7.351 unit (03/19/24 8:53 AM) pCO2 (v), POC [41-51 mmHg] 42.7 mmHg (03/19/24 8:53 AM) pO2 (v), POC [15-60 mmHg] 52 mmHg (03/19/24 8:53 AM) HCO3(v), POC [23-28 mmol/L] 23.6 mmol/L (03/19/24 8:53 AM) Component RED CELLS (03/20/24 3:09 AM) MRSA Surveillance, on Admission [MSND] MRSA NOT detected (03/19/24 12:45 PM) Anion Gap [5-14 mmol/L] 10 mmol/L (03/24/24 3:23 AM) 9 mmol/L (03/23/24 5:05 AM) 10 mmol/L (03/22/24 3:21 AM) Hgb(a) [12.0-18.0 g/dL] 10.2 g/dL *LOW* (03/20/24 3:09 AM) 11.1 g/dL *LOW* (03/19/24 3:03 PM) 11.4 g/dL *LOW* (03/19/24 12:45 PM) Alb [3.5-5.2 g/dL] 3.4 g/dL *LOW* (03/21/24 3:15 AM) 3.2 g/dL *LOW* (03/19/24 12:45 PM) BUN [6-23 mg/dL] 15 mg/dL (03/24/24 3:23 AM) 13 mg/dL (03/23/24 5:05 AM) 18 mg/dL (03/22/24 3:21 AM) Ca [8.4-10.2 mg/dL] 8.3 mg/dL 2 *LOW* (03/24/24 3:23 AM) 6.7 mg/dL 3 *LOW* (03/23/24 5:05 AM) 8.0 mg/dL *LOW* (03/22/24 3:21 AM) Ion Ca [1.15-1.27 mmol/L] 1.19 mmol/L (03/21/24 3:15 AM) 1.22 mmol/L (03/20/24 5:20 PM) 1.08 mmol/L *LOW* (03/20/24 2:14 PM) Cl- [98-107 mmol/L] 102 mmol/L (03/24/24 3:23 AM) 108 mmol/L *HI* (03/23/24 5:05 AM) 107 mmol/L (03/22/24 3:21 AM) HCO3 [22-29 mmol/L] 24 mmol/L (03/24/24 3:23 AM) 24 mmol/L (03/23/24 5:05 AM) 27 mmol/L (03/22/24 3:21 AM) Cret [0.60-1.00 mg/dL] 0.70 mg/dL (03/24/24 3:23 AM) 0.58 mg/dL *LOW* (03/23/24 5:05 AM) 0.60 mg/dL (03/22/24 3:21 AM) ACT (Kaolin), POC [74-137 seconds] 116 seconds (03/19/24 10:38 AM) 452 seconds *HI* (03/19/24 9:56 AM) 580 seconds *HI* (03/19/24 9:33 AM) Fibr [208-435 mg/dL] 315 mg/dL (03/19/24 12:45 PM) Glu [74-109 mg/dL] 102 mg/dL 4 (03/24/24 3:23 AM) 88 mg/dL 5 (03/23/24 5:05 AM) 94 mg/dL 6 (03/22/24 3:21 AM) Gluc Meter [74-109 mg/dL] 77 mg/dL (03/22/24 7:48 AM) 122 mg/dL *HI* (03/21/24 8:49 PM) 85 mg/dL (03/21/24 4:58 PM) HCO3(a) [21-28 mmol/L] 23.2 mmol/L (03/20/24 3:09 AM) 22.7 mmol/L (03/19/24 3:03 PM) 24.8 mmol/L (03/19/24 12:45 PM) Hct [35-44 %] 27.0 % *LOW* (03/24/24 3:23 AM) 21.6 % *LOW* (03/23/24 5:05 AM) 24.2 % *LOW* (03/22/24 3:21 AM) Hgb [11.7-15.0 g/dL] 8.5 g/dL *LOW* (03/24/24 3:23 AM) 7.2 g/dL *LOW* (03/23/24 5:05 AM) 7.9 g/dL *LOW* (03/22/24 3:21 AM) INR [0.9-1.1] 1.2 7 *HI* (03/20/24 3:09 AM) 1.5 8 *HI* (03/19/24 12:45 PM) K [3.5-5.1 mmol/L] 5.0 mmol/L 9 (03/24/24 3:23 AM) 2.9 mmol/L 10 *LOW* (03/23/24 5:05 AM) 3.7 mmol/L (03/22/24 3:21 AM) MCH [28-33 pg] 28.2 pg (03/24/24 3:23 AM) 28.9 pg (03/23/24 5:05 AM) 28.8 pg (03/22/24 3:21 AM) MCHC [32-36 g/dL] 31.5 g/dL *LOW* (03/24/24 3:23 AM) 33.3 g/dL (03/23/24 5:05 AM) 32.6 g/dL (03/22/24 3:21 AM) MCV [81-96 fL] 89.7 fL (03/24/24 3:23 AM) 86.7 fL (03/23/24 5:05 AM) 88.3 fL (03/22/24 3:21 AM) Mg [1.6-2.6 mg/dL] 2.2 mg/dL (03/24/24 3:23 AM) 2.4 mg/dL 11 (03/23/24 11:59 AM) 7.4 mg/dL 12 *HI* (03/23/24 10:01 AM) Na [136-145 mmol/L] 136 mmol/L (03/24/24 3:23 AM) 141 mmol/L (03/23/24 5:05 AM) 144 mmol/L (03/22/24 3:21 AM) SaO2(a) [95.0-98.0 %] 98.6 % *HI* (03/20/24 3:09 AM) 99.4 % *HI* (03/19/24 3:03 PM) 98.9 % *HI* (03/19/24 12:45 PM) pCO2(a) [35-48 mmHg] 41.0 mmHg (03/20/24 3:09 AM) 45.0 mmHg (03/19/24 3:03 PM) 54.0 mmHg *HI* (03/19/24 12:45 PM) pH(a) [7.35-7.45 unit] 7.360 unit (03/20/24 3:09 AM) 7.310 unit *LOW* (03/19/24 3:03 PM) 7.270 unit *LOW* (03/19/24 12:45 PM) PO4 [2.5-4.5 mg/dL] 1.8 mg/dL *LOW* (03/21/24 3:15 AM) 3.1 mg/dL (03/20/24 3:09 AM) 2.5 mg/dL (03/19/24 12:45 PM) Plts [150-350 K/uL] 222 K/uL (03/24/24 3:23 AM) 150 K/uL (03/23/24 5:05 AM) 142 K/uL *LOW* (03/22/24 3:21 AM) pO2(a) [83-108 mmHg] 105.0 mmHg (03/20/24 3:09 AM) 128.0 mmHg *HI* (03/19/24 3:03 PM) 90.0 mmHg (03/19/24 12:45 PM) PT [12.0-14.2 seconds] 15.4 seconds *HI* (03/20/24 3:09 AM) 17.6 seconds *HI* (03/19/24 12:45 PM) PTT [23-35 seconds] 33 seconds (03/19/24 12:45 PM) RBC [3.90-5.00 M/uL] 3.01 M/uL *LOW* (03/24/24 3:23 AM) 2.49 M/uL *LOW* (03/23/24 5:05 AM) 2.74 M/uL *LOW* (03/22/24 3:21 AM) Temp(a) 36.9 C (03/20/24 3:09 AM) 36.0 C (03/19/24 3:03 PM) 36.0 C (03/19/24 12:45 PM) Temp(v) 37.0 C (03/19/24 8:53 AM) WBC [4.0-10.4 K/uL] 8.05 K/uL (03/24/24 3:23 AM) 6.95 K/uL (03/23/24 5:05 AM) 10.18 K/uL (03/22/24 3:21 AM) 1Result Comment: Performed at: [facility], [address] [place] [address] [place] [address] 2Result Comment: CHECKED 3Result Comment: CHECKED 4Result Comment: ADA recommendation for FASTING Serum/Plasma Glucose: Normal: 70-100 mg/dL Prediabetes: 100-125 mg/dL Diabetes: 126 mg/dL or higher 5Result Comment: ADA recommendation for FASTING Serum/Plasma Glucose: Normal: 70-100 mg/dL Prediabetes: 100-125 mg/dL Diabetes: 126 mg/dL or higher 6Result Comment: ADA recommendation for FASTING Serum/Plasma Glucose: Normal: 70-100 mg/dL Prediabetes: 100-125 mg/dL Diabetes: 126 mg/dL or higher 7Result Comment: Suggested therapeutic range for low-intensity Coumadin therapy for venous thromboembolism is INR 2.0-3.0 (ex: atrial fibrillation, history of TIA/stroke). For high risk patients, the suggested therapeutic range is INR 2.5-3.5 (ex: mechanical prosthetic valves). 8Result Comment: Suggested therapeutic range for low-intensity Coumadin therapy for venous thromboembolism is INR 2.0-3.0 (ex: atrial fibrillation, history of TIA/stroke). For high risk patients, the suggested therapeutic range is INR 2.5-3.5 (ex: mechanical prosthetic valves). 9Result Comment: CHECKED NO VISIBLE HEMOLYSIS 10Result Comment: CHECKED 11Result Comment: CHECKED 12Result Comment: CHECKED QUESTIONABLE RESULT, NEW SPECIMEN REQUESTED Radiology Reports (Most Recent Ten) * Exam Date Time Procedure Performing Provider Status 03/24/24 5:39 AM XR Chest 1 View Cyn Hawley; Final Notes: (XR Chest 1 View) Reason For Exam: monitor R PTX XR Chest 1 View EXAMINATION: XR Chest 1 View CLINICAL HISTORY: monitor R PTX COMPARISON: March 23, 2024 dating back to March 21, 2024 FINDINGS: Postoperative change. Unchanged cardiac pericardial silhouette. Hypoinflation with bronchovascular crowding. Bibasal atelectasis and small effusions. Mild interval decrease in small right pleural effusion IMPRESSION: 1. Slight decrease in small right pleural effusion. 2. Hypoinflation. Small bilateral pleural effusions and bibasilar atelectasis. Workstation ID: [id number] Final Dictated by:MD Mahajan Cristy N Dictated DT/TM:03/24/2024 8:39 Signed by:MD Mahajan Cristy N Signed (Electronic Signature):03/24/2024 8:38 a * Exam Date Time Procedure Performing Provider Status 03/23/24 6:23 AM XR Chest 2 Views Cyn Hawley; Final Notes: (XR Chest 2 Views) Reason For Exam: s/p OHS, all CT out XR Chest 2 Views EXAMINATION: XR Chest 2 Views CLINICAL HISTORY: s/p OHS, all CT out COMPARISON: Comparison with prior imaging, most recent from yesterday FINDINGS: Postoperative change. Unchanged cardiac pericardial silhouette. Normal pulmonary vascularity. Bibasal atelectasis and small effusions. Unchanged right pneumothorax. IMPRESSION: 1. Unchanged right pneumothorax. 2. Small bilateral pleural effusions. Workstation ID: [id number] Final Dictated by:MD Trevino Rekha Dictated DT/TM:03/23/2024 8:50 Signed by:MD Trevino Rekha Signed (Electronic Signature):03/23/2024 8:49 a * Exam Date Time Procedure Performing Provider Status 03/22/24 4:09 PM XR Chest 1 View Farhana Reese; Final Notes: (XR Chest 1 View) Reason For Exam: SOB, desat, known R PTX XR Chest 1 View EXAMINATION: XR Chest 1 View CLINICAL HISTORY: SOB, desat, known R PTX COMPARISON: Chest radiograph 03/22/2024 at 5:24 FINDINGS: Portable upright single AP view the chest. Postoperative chest with median sternotomy wires. Left atrial appendage clip. Prosthetic heart valve. Right internal jugular central venous catheter with tip in the upper SVC. Unchanged cardiomediastinal silhouette and pulmonary vasculature. Small bilateral pleural effusion with associated atelectasis, left greater than right. Jjcys-sa-mclhuwck right pneumothorax, unchanged. Unchanged osseous structures. IMPRESSION: 1. [id number] right pneumothorax, unchanged. 2. Small bilateral pleural effusion, unchanged. Workstation ID: [id number] Final Dictated by:DO Gonzalez Rushi Dictated DT/TM:03/22/2024 4:27 Signed by:DO Gonzalez Rushi Signed (Electronic Signature):03/22/2024 4:26 p * Exam Date Time Procedure Performing Provider Status 03/22/24 1:[address] Angio Chest Evans Delgadillo Notes: (CT Angio Chest) Reason For Exam: s/p ascending aorta replacement CT Angio Chest EXAMINATION: CHEST CT ANGIOGRAM CLINICAL HISTORY: s/p ascending aorta replacement COMPARISON: CT TAVR 02/14/2024. Chest x-ray 03/22/2024. TECHNIQUE: Non contrast CT of the chest followed by high pitch helical ECG gated CT scan through the chest after intravenous contrast administration. Data reconstructed as axial, sagittal, and coronal slices. Volume rendered and maximum intensity projection images were obtained and interpreted at a separate 3-D workstation. CONTRAST: Contrast Type (IV): Omnipaque 350 Contrast Volume (IV) in ml: 100.00 DOSE: Total Reported Dose Length Product (DLP) = 1291.75 mGy.cm FINDINGS: Aorta: Aortic valve replacement in appropriate position. [...] likely postoperative. IMPRESSION: 1. Moderate right-sided apical pneumothorax. 2. Expected postoperative changes of ascending aorta repair. [place] Act 112: This study does not meet the requirements of [place] Act 112. Dr. Ruel Echevarria is the dictating resident. Finalized reports status indicates that the attending has reviewed the images and report, and agrees with the interpretation. Preliminary report status should be regarded as NOT interpreted by the attending radiologist Dr. Ruel Echevarria discussed findings with THEO Maria at 03/22/2024 2:09 PM EDT. Workstation ID: [id number] Final Dictated by:DO Echevarria Nrutya Dictated DT/TM:03/22/2024 3:36 Resident:DO Echevarria Nrutya Signed by:DO Vigil Christian Signed (Electronic Signature):03/22/2024 3:35 p * Exam Date Time Procedure Performing Provider Status 03/22/24 5:41 AM XR Chest 1 View Clementina Borrego; Modified Notes: (XR Chest 1 View) Reason For Exam: S/P Open Heart Surgery XR Chest 1 View EXAMINATION: XR Chest 1 View CLINICAL HISTORY: S/P Open Heart Surgery COMPARISON: Chest radiograph 03/21/2024 FINDINGS: Portable upright single AP view the chest. Postoperative chest with median sternotomy wires. Prosthetic heart valve. Left atrial appendage clip. Right internal jugular central venous catheter with tip in the upper SVC, unchanged. Unchanged cardiomediastinal silhouette and pulmonary vasculature. Small bilateral pleural effusion with associated atelectasis, left greater the right, and unchanged. Right small to moderate pneumothorax, unchanged. Unchanged osseous structures. IMPRESSION: 1. Right small to moderate pneumothorax, unchanged. 2. Small bilateral pleural effusion with associated atelectasis, unchanged. Workstation ID: [id number] Final Dictated by:DO Gonzalez Rushi Dictated DT/TM:03/22/2024 9:05 Signed by:DO Gonzalez Rushi Signed (Electronic Signature):03/22/2024 9:04 a * Exam Date Time Procedure Performing Provider Status 03/21/24 6:16 AM XR Chest 1 View Mallika Escudero; Amadou landry Notes: (XR Chest 1 View) Reason For Exam: Right Ptx. XR Chest 1 View EXAMINATION: XR Chest 1 View CLINICAL HISTORY: Right Ptx. COMPARISON: Chest x-ray 03/20/2024. FINDINGS: Erect portable AP view of the chest. Right IJ central venous catheter with tip in the upper SVC. Left atrial appendage clip. Valve replacement. Sternotomy wires are intact and aligned. The cardiomediastinal silhouette is enlarged, unchanged. Normal pulmonary vasculature. Hypoinflatedlungs with small bilateral pleural effusions. Unchanged small to moderate sized right pneumothorax.No acute osseous abnormality. IMPRESSION: 1. Right pneumothorax is unchanged in size. 2. Hypoinflated lungs with bibasilar atelectasis 3. Unchanged small bilateral pleural effusions. Dr. Jennifer Burrows is the dictating resident. Finalized reports status indicates that the attending has reviewed the images and report, and agrees with the interpretation. Preliminary report status shouldbe regarded as NOT interpreted by the attending radiologist. Workstation ID: [id number] Final Dictated by:MD Burrows Mary Dictated DT/TM:03/21/2024 7:14 Resident:MD Burrows Mary Signed by:MD Alexander Kathryn L Signed (Electronic Signature):03/21/2024 7:13 a * Exam Date Time Procedure Performing Provider Status 03/20/24 6:40 PM XR Chest 1 View Micheal Wood; Final Notes: (XR Chest 1 View) Reason For Exam: s/p CT removal, f/u pneumothorax XR Chest 1 View EXAMINATION: XR Chest 1 View CLINICAL HISTORY: s/p CT removal, f/u pneumothorax COMPARISON: Multiple prior chest radiograph is most recent from earlier today 03/20/2024 at 10:07. FINDINGS: AP upright radiograph the chest. Interval removal of mediastinal surgical drain. Right internal jugular central venous catheter withtip in the upper superior vena cava. Median sternotomy wires. Prosthetic heart valve. Left atrial appendage clipping. Enlarged cardiomediastinal silhouette, unchanged. Hypoinflated lungs. Bibasilar atelectasis, increased. Small unchanged bilateral effusions. Increased small to moderate right pneumothorax. IMPRESSION: 1. Small to moderate right pneumothorax, increased from prior. 2. Hypoinflated lungs with increased bibasilar atelectasis. 3. Small pleural effusions, unchanged. These findings were sent via [place] text to Rachel Lei, [facility] [place] by Dileep Gonzalez D.O., at 8:50 PM on 03/20/2024. Confirmation reply received at 8:52 PM on the same day, 03/20/2024. Dr. True Sandhu is the dictating resident. Finalized reports status indicates that the attending has reviewed the images and report, and agrees with the interpretation. Preliminary report status should be regarded as NOT interpreted by the attending radiologist. Workstation ID: [id number] Final Dictated by:DO Sandhu Alex Dictated DT/TM:03/20/2024 8:56 Resident:DO Sandhu Alex Signed by:DO Gonzalez Rushi Signed (Electronic Signature):03/20/2024 8:55 p * Exam Date Time Procedure Performing Provider Status 03/20/24 10:15 AM XR Chest 1 View Mayda Aldrich; Amadou landry Notes: (XR Chest 1 View) Reason For Exam: f/u R pneumothorax XR Chest 1 View EXAMINATION: XR Chest 1 View CLINICAL HISTORY: f/u R pneumothorax COMPARISON: Chest radiograph from earlier same day. FINDINGS: Portable upright AP chest. Cardiac valve prosthesis. Left atrial appendage clip. Unchanged sternotomy wires. Surgical drain catheters pneumomediastinum. Right IJ approach central catheter tip upper SVC. Partially obscured enlarged heart. Hypoinflation. Bibasilar atelectasis, improved on the left. Small pleural effusions, unchanged. Decreased small to moderate right pneumothorax. Trace postoperative pneumomediastinum. Small-volume postoperative chest wall soft tissue emphysema. Unchanged osseousstructures.. IMPRESSION: 1. Decreased right pneumothorax. 2. Improved left basilar atelectasis. 3. Small pleural effusions, unchanged. Workstation ID: [id number] Final Dictated by:DO Renae Matthew D Dictated DT/TM:03/20/2024 10:22 Signed by:DO Renae Matthew D Signed (Electronic Signature):03/20/2024 10:21 * Exam Date Time Procedure Performing Provider Status 03/20/24 6:41 AM XR Chest 1 View Mallika Escudero; Amadou landry Notes: (XR Chest 1 View) Reason For Exam: Post Procedure Post Open Heart Surgery POD 1 XR Chest 1 View EXAMINATION: XR Chest 1 View CLINICAL HISTORY: Post Procedure Post Open Heart Surgery POD 1 COMPARISON: Comparison with prior imaging, most recent from yesterday FINDINGS: Postoperative chest. Mediastinal drain. Right IJ catheter tip in the upper SVC. Unchanged cardiopericardial silhouette. Normal pulmonary vascularity. Hypoventilatory changes and likely small effusions. Small to moderate right apical pneumothorax. IMPRESSION: 1. Crnxp-yp-xklifmsh right apical pneumothorax, increased. 2. Mild bibasal atelectasis/small effusions. [place] texted Kenia Rajat regarding pneumothorax and reply received at 909. Workstation ID: [id number] Final Dictated by:MD Trevino Rekha Dictated DT/TM:03/20/2024 9:10 Signed by:MD Trevino Rekha Signed (Electronic Signature):03/20/2024 9:09 a * Exam Date Time Procedure Performing Provider Status 03/19/24 1:09 PM XR Chest 1 View Sara Franklin; Valerie bardales Notes: (XR Chest 1 View) Reason For Exam: Post Procedure, Post Open Heart Surgery XR Chest 1 View EXAMINATION: XR Chest 1 View CLINICAL HISTORY: Post Procedure, Post Open Heart Surgery COMPARISON: Comparison with prior imaging from 03/09/2024 FINDINGS: Postoperative chest. Left atrial ligation clip. Mediastinal drain. Right IJ catheter tip in the upper SVC. Enlarged cardiopericardial silhouette. Normal pulmonary vascularity. Hypoinflation. Scattered bilateral atelectasis. No significant effusion. No pneumothorax. Mild subcutaneous air. IMPRESSION: Postoperative chest. Hypoventilatory changes. Workstation ID: [id number] Final Dictated by:MD Trevino Rekha Dictated DT/TM:03/19/2024 1:21 Signed by:MD Trevino Rekha Signed (Electronic Signature):03/19/2024 1:20 p Anatomic Pathology Reports * Report Case Number Specimen Responsible Pathologist Report Status Surgical Pathology Report [id number] MD Fox France sca M; Final * Event Display: SP Micro 1. The elastic stain, performed on block 1A, shows preserved elastic layers in the media. MD Fox Francesca M:VERIFY; Authored Date: [id number] * Event Display: SP Disclaimer [facility] performs the technical component for work verified at [facility]([address] [place] [address]; CLIA [id number]), [facility] ([address] [facility], [place] [address]; CLIA [id number]), and [facility] ([address] [address]; CLIA [id number]). [facility] performs the technical component for work verified at [facility] ([address], [address], [place] [address]; CLIA [id number]) and [facility] ([address] [place] [address]; CLIA [id number]). All laboratories are under the Clinical Laboratory Improvement Amendments of 1988 (CLIA-88) as qualified to perform high complexity clinical laboratory testing. The following statement applies to flow cytometry, immunohistochemical, histochemical, molecular genetics, immunofluorescence, and in situ hybridization assays. These tests were developed and their performance characteristics determined by a [facility] Department of Pathology Laboratory. All controls show appropriate reactivity. Not all tests have been cleared or approved by the U.S. Food and Drug Administration. The FDA has determined that such clearance or approval is not necessary. For decalcified specimen types, focused validation may have been done that may or may not apply to all decalcified specimen types. Results should be interpreted with caution. MD Fox Francesca M:VERIFY; Authored Date: * Event Display: SP Gross 1. Received fresh labeled patient's name, medical record number, and "aortic valve and aorta", consists of 2 semilunar portions of valve measuring up to 3.0 cm in greatest dimension. The valves show abundant fibrosis and calcification. Additionally, a portion of large-caliber vessel is identified measuring 11.2 x 5.5 x 0.2 cm. One aspect is pink, with a slightly roughened appearance. The inner wall is camargo, glistening with yellow streaking. Size Mixer sections of the vessel are submitted. Block summary: 1A ([facility])_ MD Fox Francesca M:VERIFY; Authored Date: * Event Display: SP Dx 1. Heart, aortic valve, excision: - Bicuspid aortic valve. - Fibrosis and calcification. Aorta, thoracic, ascending, partial excision: - Mild atherosclerosis. - Preserved elastic lamina. Tena Fox MD (Electronically signed by) Verified: 03/21/2024 15:17 EDT Performing Location: [facility] MD Fox Francesca M:VERIFY; Authored Date: * Event Display: SP Clinical History Pre-operative diagnosis: Nonrheumatic aortic (valve) stenosis_ Post-operative diagnosis: Nonrheumatic aortic (out) stenosis_ Signs and symptoms: _ _ Time out of body: _ Time in fixative: _ Special instructions: _ MD Fox Francesca M:VERIFY; Authored Date: Vital Signs Most recent to oldest [Reference Range]: 1 2 3 Height 167 cm (03/19/24 5:52 AM) Patient Weight 116.4 kg (03/24/24 6:00 AM) 115.8 kg (03/23/24 6:26 AM) 118 kg (03/22/24 5:30 AM) Body Mass Index 40.55 kg/m2 (03/19/24 5:52 AM) Temperature [36.5-37.9 DegC] 36 DegC *LOW* (03/24/24 8:57 AM) 36.8 DegC (03/24/24 3:16 AM) 37.0 DegC (03/24/24 12:14 AM) Heart Rate 68 bpm (03/24/24 8:57 AM) 63 bpm (03/24/24 3:16 AM) 62 bpm (03/24/24 12:14 AM) Respiratory Rate 22 br/min (03/24/24 8:57 AM) 22 br/min (03/24/24 3:16 AM) 17 br/min (03/24/24 12:14 AM) Blood Pressure 104/44mmHg (03/24/24 8:57 AM) 117/59mmHg (03/24/24 3:16 AM) 107/48mmHg (03/24/24 12:14 AM) Mean Blood Pressure 62 mmHg (03/24/24 8:57 AM) 75 mmHg (03/24/24 3:16 AM) 65 mmHg (03/24/24 12:14 AM) Cuff Pulse Pressure 60 mmHg (03/24/24 8:57 AM) 58 mmHg (03/24/24 3:16 AM) 59 mmHg (03/24/24 12:14 AM) BP Location # 1 Right Arm (03/24/24 8:57 AM) Right Arm (03/24/24 3:16 AM) Right Arm (03/24/24 12:14 AM) Social History Social History Type Response Smoking Status Never smoked cigaret mark Sex Female Sex Representation Female (finding) Implantable Device List Procedure Provider Procedure Date Device Type Site Unknown Unknown 03/19/24 Unknown Unknown Device Identifier Serial Number Lot or Batch Number Manufacturing Date Expiration Date Distinct Identification Code MRI Safety Implantable Status Assigning Authority Unknown Unknown [id number] Unknown 12/21/26 Unknown Unknown Active Unkno wn Unknown Unknown n/a Unknown 07/25/27 Unknown Unknown Active Unkno wn Unknown Unknown [id number] Unknown 11/19/26 Unknown Unknown Active Unknown EKG study * Contributor_system, [id number]: VERIFY, PERFORM Event Display: EKG Authored Date: [id number] Please click on link to see image. Surgical operation note * MD Leena, Tess S: MODIFY, PERFORM, MODIFY Event Display: .Operative Report Authored Date: [id number] Name:DHAVAL MENDEZ Patient Number:[id number] :1960 Date of Service:03/19/2024 Preoperative Diagnosis Symptomatic severe aortic valve stenosis Bicuspid aortic valve Ascending aorta aneurysm Atrial fibrillation Patent foramen ovale Left sided SVC Recent history of stroke with residual aphasia Morbid Obesity Family history of melanoma GERD Grade II diastolic dysfunction HTN (hypertension) Mild obstructive sleep apnea Postoperative Diagnosis Symptomatic severe aortic valve stenosis Bicuspid aortic valve Ascending aorta aneurysm Atrial fibrillation Patent foramen ovale Left sided SVC Recent history of stroke with residual aphasia Morbid Obesity Family history of melanoma GERD Grade II diastolic dysfunction HTN (hypertension) Mild obstructive sleep apnea In Room Time 03/19/24 06:56:00 Operation Aortic valve replacement using biologic valve (25mm Inspiris) Ascending aorta repair using 30mm Gelweave graft Left atrial ablation using Encompass clamp Left atrial appendage ligation using a 35mm AtriCure clip PFO closure Ligation of left sided SVC CONSENT: I had a lengthy discussion with the patient and her daughterabout the rationale for aortic valve replacement and ascending aorta repair, steps of the operation and the risks involved. I explained the operation involves a midline sternotomy, institution of cardiopulmonary bypass followed by replacing the aortic valve with a bioprosthetic (tissue) valve and ascending aorta repair. I alsoexplained all the risks involved with the operation including , stroke, cruz-operative myocardial infarction, heart block requiring a pacemaker, excessive mediastinal bleeding which may require re-operation for hemostasis, infection including wound infection affecting the sternum, which may require further surgical intervention, recurrent infection on the replaced valve, liver or kidney injury that may require replacement therapy. The patient understands all these risks and anticipates that any of these complications may occur. OPERATION: The patient was brought to the operating room and placed in a supine position on the operating table. Under suitable hemodynamic monitoring, general endotracheal anesthesia was induced.Atransesophageal echo probe was placed and confirmed severe bicuspid aortic stenosis, ascending aorta aneurysmand no other valvular abnormality. It also demonstrated a PFO. The patient was prepped and draped in sterile fashion. Safety timeout was called and the patient was identified and the planned procedure was confirmed. Primary midline sternotomy was performed. The pericardium was opened in the midline and a pericardial well was created. The heart was in sinus rhythm then it went into atrial fibrillation. The patient was systemically heparinized to an ACT of more than 400 seconds. The aortic arch was cannulated in a suitable soft spot.Bicavalvenous cannulation was then secured. A 9-gauge DLP catheter was inserted in the ascending aorta. Cardiopulmonary bypass was then commenced to a flow index of 2.4 l/min/m2 body surface area. The oblique sinus was developed using blunt dissection. The space between the SVC and the right pulmonary artery was developed using electrocautery. The ligament of Valentín was divided using electrocautery. The Encompass clamp was then passed from the right to the left side of the heart around all4 pulmonary veins. Three sets of 2 box ablation lesions were applied around all 4 pulmonary veins. A size 35mm AtriCure clip was then placed at the base of the left atrial appendage. A small left sided SVC was dividedwith Bovie between twolarge clips. The aorta was cross-clamped at the base of the innominate artery and antegrade Del Nido cardioplegia was administered through the aortic root with good arrest. The caval cannulae were snared, the right atrium was opened and the PFO was closed with a 4-0 Prolene suture. The ascending aorta was resected from the sinotubular junction to the base of the innominate artery. The aortic valve appeared bicuspid with fused none-left commissures and severely calcified. The valve was excised using scissorsand the annulus was thoroughly debrided using Rongeur forceps. Meticulous attention was paid to ensure adequate decalcification. The ventricle was thoroughly irrigated with cold saline at this point.The annulus was sized at 25 mm and valve sutures were then inserted. These were non-pledgeted 2-0PremiCron sutures. The valve (25-mm Inspiris bovine pericardial valve, serial number [id number]) was then inserted and the sutures were tied and cut. A size 30mm Gelweave straight graft was anastomosed to the distal ascending aorta using a running 4-0 Prolene suture then anastomosed to the sinotubular junction also using a running 4-0 Prolene suture. A root vent was placed into the ascending aortagraft to help with deairing. The heart was thoroughly deaired and with the patient in Trendelenburgposition, the aortic cross-clamp was removed after a clamp time of66 minutes. The heart spontaneou sly regained sinus rhythm and ventricular pacing wires were inserted. The right atriotomy was closed using 4-0 Prolene suture. The adequacy of deairing was confirmed on DAVINA. Ventilation was resumed. All the suture lines were checked for hemostasis and the prosthetic valve was checked on DAVINA for evidence of malfunction or leak, and none were found. At this point, the patient was from cardiopulmonary bypass after a total pump time of 1 hour and45 minutes.Patient came off bypass with ease and remained hemodynamically stable. Protamine test dose was administered and no reaction was noted. The rest of the Protamine was then administered and cannulae were removed. One mediastinal drain was inserted, hemostasis was ensured and the sternum was closed using stainless steel wires. The soft tissue closure was with 0 Prolene and 2-0 PDS and the skin was closed using 4-0 Monocryl. The wounds were covered with sterile dressing. Drains were connected to underwater seal low suction. Sponge and instrument count was correct as reported to me. The patient was transported to intensive ca re in stable condition. Surgeon(s) MD Leena, Tess Ibanez (Physician - Primary) Social Media Content Manager(s) MD Mason Peter M (Surgical Fellow) Anesthesia DO [place]argrove Shayne M (Primary Attending) DO Kc Joy (Resident) Estimated Blood Loss 595.0 mL Specimen(s) Aortic valve leaflets and ascending aorta Findings Bicuspid and heavily calcified aortic valve. Left-none fusion. Ascending aorta aneurysm. Small leftsided SVC. Complications None Indication for Surgery 63 year-old female patient with symptomatic severe aortic valve stenosis, bicuspid aortic valve andascending aorta aneurysm Electronic Signature on File CC: Pretty Higuera MD [address] [address] CC: Jd Cole DO [address] [facility] [address] [address] Electronically Reviewed/Signed by: Tess Stern MD Author Signature Dt/Tm:03/19/2024 01:22 PM Division of Cardiothoracic Surgery ASE Discharge instructions * THEO Maria, Rachel Jovel: PERFORM Event Display: Patient Discharge Instructions Authored Date: [id number] DHAVAL MENDEZ :1960 Visit Date:03/19/2024 Patient Discharge Instructions [facility] For medical concerns, call: . Date of Admission:03/19/2024 Date of Discharge:03/24/2024 Physician:MD Stern Abdulrhman S Service:Cardiac Surgery Discharge Disposition:Home . Advance Directive:Living will, Health Care Power of Forensic Chemist Reason for Hospitalization Aortic stenosis with bicuspid valve Your Diagnoses Aortic stenosis with bicuspid valve Aortic aneurysm Hospital Course: This is a 63 year old with a significant PMHx of CVA w/residual aphasia, GERD, HTN, RUBEN, bicuspid aortic valve, ascending aorta aneurysm. They were taken to the OR on 03/19/24 and underwent AVR, ascending aorta replacement, PFO closure, MAZE, and LAAL. Patient was extubated, vasoactive medicationswere weaned off appropriately and patient was downgraded to IMC status. The patients activity and diet were advanced. Medications were titrated appropriately and oxygen was weaned off. Hospital course was complicated by postoperative hypotension, requiring midodrine; now resolved. Beta kinjal held due to hypotension. She also had R PTX on CXR, which improved. She is stable on RA. She was started on PO amio for MAZE procedure; will be discharged on amio 200mg PO daily x1 month asper Dr. Stern. She also experienced urinary retention during hospitalization, requiring straightcath x2; resolved. Will be discharged on 5 days of Flomax. Patient was seen by PT, OT, and Photography Teacher and was discharged on 03/24/24 [place] with hometherapies. Referral to cardiac rehab was placed. They were provided with education on wound care, diet, medication changes, and activity restrictions. We thank you for the opportunity to participate in the care of your patient. Please do not hesitateto contact us with any questions. Sincerely, [facility]iac [facility] [employer] Patient Portal: [facility] [employer] makes it easy for you to manage your health information online. [place] [employer] is a free service that provides you instant, secure access to your medical information anytime, anywhere. Sign in or set up your account today at [facility] erieHello! [email or web address] Thank you for allowing us to assist you with your healthcare needs. If you need additional community resources, DAVID 211 can help at https://www.pa211.org. 211 can assist you in connecting with social programs based on your unique needs and locations. 211 is an anonymous search that can help you locate resources for: Food, Housing, Transportation, Goods, Education and Healthcare. Medications Patient is enrolled in Rx-to-Go Program New medications will be delivered from [facility] to patient's room at discharge: Mon-Tue from 9AM-5 PM. Medications MUST be PICKED UP at [facility] if patient is discharged Mon-Tue after 5 PM or anytime on holidays. Please note, the [facility] closes at 8 PM on week and 5:30 PM on Saturdays, Sundays, and holidays. What How Much When Instructions Next Dose New acetaminophen (Tylenol 325 mg oral tablet) 2 tab(s) by mouth Every 8 hours New amiodarone (amiodarone 200 mg oral tablet) 1 tab(s) by mouth Once daily Duration: 30 Days Pickup at [facility] New cyclobenzaprine (cyclobenzaprine 5 mg oral tablet) 1 tab(s) by mouth 3 times daily as needed for pain - moderate (4-6) Duration: 3 Days Pickup at [facility] New furosemide (Lasix 40 mg oral tablet) 1 tab(s) by mouth 2 times daily Duration: 7 Days Pickup at [facility] New pantoprazole (Protonix 40 mg oral delayed release tablet) 1 tab(s) by mouth Once daily Duration: 30 Days Pickup at [facility] New potassium chloride (potassium chloride 20 mEq oral tablet, extended release) 2 tab(s) by mouth 2 times daily Duration: 7 Days Pickup at [facility] New tamsulosin (Flomax 0.4 mg oral capsule) 1 cap by mouth Once daily Duration: 5 Days Pickup at [facility] Unchanged aspirin (aspirin 81 mg oral delayed release tablet) 1 tab(s) by mouth Once daily Duration: 30 Days Unchanged atorvastatin (atorvastatin 80 mg oral tablet) 1 tab(s) by mouth Once daily Duration: 30 Days Unchanged multivitamin (Multi Vitamin+) 1 tab(s) by mouth Once a day (in the morning) Pharmacy Information [facility]: [address] [place] [address] DAVID Fan [id number] [phone] What How Much When Comments Stop Taking magnesium sulfate/ potass Cl/ sodium sulf (Sutab oral tablet) See instructions As directed from written endoscopy directions Stop Taking metoprolol (metoprolol succinate 25 mg oral tablet, extended release) 1 tab(s) by mouth At bedtime Stop Taking olmesartan (olmesartan 40 mg oral tablet) 1 tab(s) by mouth Once daily Allergies lisinopril What to do next Instructions From Your Doctor For fevers (higher than 101F), chills, shortness of breath, chest pain, or any pain not relievedby prescribed medication, seek urgent evaluation and call the CT Surgery office at [phone]. Ifit is after-hours, weekends or holidays, please call [phone] surgeryteam memberpaged. For any cardiac surgeryscheduling questions, call [phone]. If you notice warmth, redness, swelling,incision opening,or drainage around your incision, seekurgent evaluation and call the CT Surgery office at [phone] during business hours. For after-hours, weekends or holidays, call [phone] surgery team paged. Continue using your incentive spirometer for at least 1 to 2 weeks after discharge date to prevent pneumonia. Walking is encouraged. Use your walking assistive device if needed. Walking will help prevent clotsforming in your legs. No driving, nolifting/pushing/pulling more than 5-10pounds(about a gallon of milk) for 4-6 weeks, or until cleared by your surgeon.After the initial 4-6 weeks, no lifting anything more than 15-20 pounds for the next 6 weeks. Take medications as prescribed. Please call the CT Surgery office if you have any questions regarding your medications ([phone]). Refill requests on medications are to be sent to your primary care physician or your manager cost.Your prescription refills were sent to [facility], and if you would like them transferred to your local pharmacy please have you local pharmacy call [phone] for transfer assistance. Bring your log book with daily weights and blood pressure measurements with you to your postop appointments. Please check your blood pressure twice daily and yourweight once daily and record the values in a log book. If you gain more than 2lbs in one day, or 3-5lbs in one week, call thesurgeryohossein ([phone]). Other reasons to call the surgery office: ([phone]) -Persistent cough with sputum -Increased swelling of legs and feet not relieved with elevation -Worsening shortness of breath whilewalking, lying flat or talking -Any concerns or questions -Always call 911 or go the Emergency room if you are concerned and cannot reach anyone in a physicians office. Call 911 or go to the Emergency Room immediately if: -Chest pain similar to your chest pain before surgery -Heart beat faster than 110 beats per minute for greater than 20 minutes -Fainting spell -Sudden severe headache -Coughing up bright red blood -Darkorblackstickystools(bowel movement) -Shortnessof breath not relieved by rest -Severe abdominal pain -Any other health issues for which you are concerned Call your Primary Care Physician for: -Burning withurination or urinary frequency -Skin rash -Sore throat Be aware that depression and mild fatigue is common after heart surgeryand you will likely experience a slow recovery of your energy level. Caring for Your Incision Your incisions may itch or feel sore, tight, or numb for a few weeks. These are all normal signs ofhealing. Some bruising around the incisions is also normal. To care for your incisions: Wash them gently with warm water and a mild soap.Keep your back to the water stream as much as possible. Do not scrub incision sites.Pat dry.Don't soak the incisions or keep them inwatersuchas in a bathtub, hot tub, or pooluntil cleared by your surgeon.Leave incisions open to air. It is ok to place a small bandage on the incisions if there is small drainage. To help prevent infection, don't use any lotions or creams, including Neosporin,near the incisions unless your healthcare provider tells you to do so. Females should wear a bra to avoid stress on the incision. Keep a washcloth or gauze on incision where the bra lays. This will help keep the incision dry. Wounds breakdown when they are moist. Reaching, Bending, and Lifting Moving carefully During your first few weeks at home, you need to move carefully. This is because your breastbone (sternum) was cut during surgery. The bone takes about 4 to 6 weeks to grow back together. It won't come apart if you move the wrong way, but you may feel pain around the incisions or hear a clicking sound in your chest. These are warning signs to move more carefully. Follow the tips below. Reaching Until your breastbone heals, twisting your upper body can be painful. When you reach for something,follow these steps: Turn with your entire body so that you face the object. Step close to it. Lean forward from the waist to pick it up. Bending and lifting For the first few weeks, keep the things you use most, such as clothing and dishes, at waist level.If you must bend down to lift something light, follow these steps: Stand close to the object. Put your feet shoulder-width apart, with one foot slightly in front of the other. Hold on to something sturdy with one hand. Bend at the knees. Keep your back and neck straight and your shoulders and hips in line. brineyard supervisor the object and hold it close to your body. Slowly push up with your legs. If you need anything that weighs more than 5 to 10 pounds or that is on the floor, ask someone to get it for you. Prevent Swelling in Your Legs After surgery, it's common for your legs to swell a little. To control the swelling: Get up once an hour and walk around for a few minutes. When you sit or lie down, put your feet on a footrest or on the arm of the couch. Your feet should be raised above the level of your heart. You can support your lower legs with pillows. Your doctor may also want you to wear elastic compression stockings during the day. Take them off at night to sleep. Get plenty of rest Getting plenty of rest will help you get your strength back faster. Try to get a good night's sleep. It helps to go to bed at the same time each night. Don't get anxious if you can't sleep through an entire night. Your sleeping patterns will become more normal with time and as your recovery continues.You may also feel more comfortable sleeping in a different position or a recliner as you recover. Try to avoid sleeping on your side until the breastbone heals. Stop and rest for a few minutes after each activity and whenever you feel tired. You can nap or just relax. Driving and Social Activities As you feel stronger, you can go out and do more. At first, keep activities to about an hour. And remember that it's OK to leave early or ask visitors to go home so you can rest. For your own safety and the safety of others,NO drivingfor 4-6 weeks, or while taking pain medications, oruntil your doctor says you can. There are several reasons for this: Your reaction time is slower until you regain your strength. The medicines you take, along with sharp pain from sudden movements,may also slow your reaction time. If you were to be in a crash, hitting the steering wheel could damage your breastbone. Eating healthy Eat a heart healthy diet, or carb controlled diet if you are diabetic.Limit how much salt you get.You do not have to change your diet completely in one day. Make small changes over time to reach your goal. You need calories to heal from your surgery. Eat small meals more often if you don't have a good appetite when you go home.It is normal to not have much of an appetite after surgery. Appetite will return as you heal. After Surgery: Visits with Your Healthcare Team After your surgery, you'll have regular follow-up visits with your healthcare team. Expect to schedule: A visit with the surgeon to check your incisions A visit with theCardiologist (heart doctor)to check your health and adjust your medicines [facility] to check your overall health and diabetes. Your prescription refills were sent to [facility], and if you would likethem transferred to your local pharmacy please have you local pharmacy call [phone] for transfer assistance. Your PCP or manager cost will handle prescription refills. After Surgery: Your Role in Recovery Much of your recovery is up to you. Your doctor and other healthcare providers are there to help, but you need to care for your body and slowly rebuild your strength. That means doing a little more eachday, without pushing yourself too hard. Following the guidelines from yourdoctor can help youremember what to do and what to expect along the road to recovery. Tips to remember During your first few weeks at home, keep these tips in mind: Take your medicines as directed.These are important for your recovery. Call the office if you feel you are having side effects from medications. Call your doctor if you have any sign of a problem, such as fever, increased pain, or drainage from the incision. Move carefully to protect your incision and your breastbone. Pace yourself so you don't feel rushed or get overtired. Talk with your family and close friends about how you feel and what you need from them. [phone] [employer] [place] [address], [place] [address]. All rights reserved. This information is not intended as a substitute for professional medical care. Always follow your healthcare professional's instructions. If you notice the following symptoms Contact the [facility] Careline at . If unable to contact your physician and you feel it is an emergency, go to the nearest Emergency Room or call 911 Diet Instructions Activity Instructions Occupational Therapy: see sternal precautions handout Follow-Up Appointments Scheduled Follow-Up Appointments Date/Time:Provider/Resource: Mar 10:30 THEO Gutierrez, Danae Cantor Location/Instructions:[facility], Entrance A, [address] [place] [id number]. This appointment time has been reserved for your appointment. If you need to cancel or reschedule your visit call . Please arrive 15 minutesearlier than your appointment for check in process. Date/Time:Provider/Resource: Mar 08:45 DO Olivier Jason D Location/Instructions:[facility], [facility] [address], [address], [place] [address] . Please arrive 15 min earlier than your appointment time for Check In Process. Date/Time:Provider/Resource: Mar 09:45 Jesi Boggs Location/Instructions:[facility], [address] [place] [address] Date/Time:Provider/Resource: Apr 10:00 LUCAS Hernandez Mayeen R Location/Instructions:This is a virtual healthcare appointment and NOT an in- office appointment. If you have questions, please contact the office at [phone]. 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 F.A.S.T. Balance: is there trouble with walking or coordination Eyes: is there double vision or visual loss Face: Smile, do both sides of face move equally Arm: Raise arms, do both arms move equally Speech: Is speech slurred or inappropriate Time: Time is critical, call 911 immediately Heart Attack Signs Chest discomfort: Most heart attacks involve discomfort in the center of the chest and lasts more than a few minutes, or goes away and comes back. It can feel like uncomfortable pressure, squeezing, fullness or pain. Discomfort in upper body: Symptoms can include pain or discomfort in one or both arms, back, neck, jaw or stomach. Shortness of breath: With or without discomfort. Other signs: Breaking out in a cold sweat, nausea, or lightheaded. Remember, MINUTES DO MATTER. If you experience any of these heart attack warning signs, call 9-1-1 to get immediate medical attention! Education Materials Surgical Aortic Valve Replacement, Care After The following information offers guidance on how to care for yourself after your procedure. Your health care provider may also give you more specific instructions. If you have problems or questions, contact your health care provider. What can I expect after the procedure? After the procedure, it is common to have pain around your incision area. Follow these instructions at home: Medicines Take qkav-cml-otgkahb and prescription medicines only as told by your health care provider. If you were prescribed antibiotics, take them as told by your health care provider. Do not stop taking the antibiotic even if you start to feel better. If you have a mechanical prosthesis, you may be given a blood thinner called warfarin. Follow instructions carefully on how to take this medicine. Ask your health care provider if the medicine prescribed to you: Requires you to avoid driving or using machinery. Can cause constipation. You may need to take actions to prevent or treat constipation, such as: Take exrw-ybs-kngkqoc or prescription medicines. Eat foods that are high in fiber, such as beans, whole grains, and fresh fruits and vegetables. Limit foods that are high in fat and processed sugars, such as fried or sweet foods. Eating and drinking Limit how much caffeine you drink. Caffeine can affect your heart's rate and rhythm. Do not drink alcohol if: Your health care provider tells you not to drink. You are , may be , or are planning to become . Ask your health care provider if your fluid intake is restricted. If not, drink enough fluid to keep your urine pale yellow. Eat a heart-healthy diet that includes fruits, vegetables, whole grains, low-fat dairy products, and lean proteins like poultry and eggs. Incision care Follow instructions from your health care provider about how to take care of your incision. Make sure you: Wash your hands with soap and water for at least 20 seconds before and after you change your bandage (dressing). If soap and water are not available, use hand [employer] consultant. Change your dressing as told by your health care provider. Leave stitches (sutures), skin glue, or adhesive strips in place. These skin closures may need to stay in place for 2 weeks or longer. If adhesive strip edges start to loosen and curl up, you may trim the loose edges. Do not remove adhesive strips completely unless your health care provider tells you to do that. Check your incision area every day for signs of infection. Check for: Redness, swelling, or increasing pain. Fluid or blood. Warmth. Pus or a bad smell. Activity Rest as told by your health care provider. Do not sit for a long time without moving. Get up to take short walks every 12 hours. This will improve blood flow and breathing. Ask for help if you feel weak or unsteady. Do exercises as told by your health care provider. Do not lift anything that is heavier than 10 lb (4.5 kg), or the limit that you are told, until your health care provider says that it is safe. Ask your health care provider about precautions to protect your incision. Avoid pushing or pulling things with your arms until your health care provider approves. This includes pulling on handrails to help you climb stairs. Return to your normal activities as told by your health care provider. Most patients will need to limit any lifting or strenuous activity for 46 weeks. Lifestyle Do not use any products that contain nicotine or tobacco. These products include cigarettes, chewing tobacco, and vaping devices, such as e-cigarettes. These can delay healing after surgery. If you need help quitting, ask your health care provider. Resume sexual activity as told by your health care provider. If you have difficulty getting or keeping an erection (erectile dysfunction), do not use medicines to treat this condition unless your health care provider approves. Work with your health care provider to: Keep your blood pressure and cholesterol under control. Manage any other heart conditions that you have. Maintain a healthy weight. Driving and travel Do not drive until your health care provider approves. Ask your health care provider when it is safe for you to drive. Avoid airplane travel for as long as told by your health care provider. When you travel, bring a list of your medicines and a record of your medical history. Carry your medicines with you. General instructions Do not take baths, swim, or use a hot tub until your health care provider approves. Ask your healthcare provider if you may take showers. You may only be allowed to take sponge baths. Do not strain to have a bowel movement. Avoid crossing your legs while sitting down. Check your temperature every day for a fever. A fever may be a sign of infection. Wear compression stockings as told by your health care provider. These stockings help to prevent blood clots and reduce swelling in your legs. Tell all health care providers who care for you that you have an artificial (prosthetic) aortic valve. Also, tell them if you have or have had heart disease or endocarditis. You may need to take antibiotics before any dental work or cleanings. You will be given a card at discharge. The card indicates the type of prosthetic valve that you have. Keep this card in your wallet or purse for quick reference in case of an emergency. If you are planning to become , talk with your health care provider before you become . Keep all follow-up visits. Your health care provider will want to check the function of your new valve and routine labs will be ordered. Contact a health care provider if: You experience sudden, unexplained changes in your weight. You have any signs of infection at your incision. You start to feel light-headed. You have a fever. Your incision starts to open. Get help right away if: You develop chest pain that is different from the pain coming from your incision. You develop shortness of breath or difficulty breathing. These symptoms may be an emergency. Get help right away. Call 911. Do not wait to see if the symptoms will go away. Do not drive yourself to the hospital. Summary After this procedure, it is common to have pain in the incision area. Eat a heart-healthy diet. Follow instructions about alcohol use. Get up to walk often. Avoid pushing and pulling with your arms. Ask what activities are safe for you. Care for your incision as told by your health care provider. Check it daily for signs of infection. Get help right away if you have chest pain that is different from the pain coming from your incisions or you develop shortness of breath or difficulty breathing. This information is not intended to replace advice given to you by your health care provider. Make sure you discuss any questions you have with your health care provider. Document Revised: 06/27/2022 Document Reviewed: 06/27/2022 [employer] Patient Education 2023 [employer] Surgical Aortic Valve Replacement The aortic valve is a valve that lies between the left ventricle and the aorta. It opens to allow blood to flow from the heart to the rest of the body. If your valve is not working properly, you may need a procedure to replace it with an artificial (prosthetic) valve. This procedure is called surgical aortic valve replacement, or SAVR. You may have this procedure if: You have a narrowed valve (aortic valve stenosis). You have a deformed valve (bicuspid aortic valve). You have a leaking valve (aortic insufficiency). You have heart damage from an infection (endocarditis). During this procedure, your health care provider will replace your valve with one of these three types of prosthetic valves: Mechanical valves, which are made from man-made materials. Donor valves, which are from human donors. These are only used in special situations. Biological valves, which are made from animal tissues. Tell a health care provider about: Any allergies you have. All medicines you are taking, including vitamins, herbs, eye drops, creams, and enuv-rie-vdftbgj medicines. Any problems you or family members have had with anesthetic medicines. Any bleeding problems you have. Any surgeries you have had. Any medical conditions you have. Whether you are or may be . What are the risks? Generally, this is a safe procedure. However, problems may occur, including: Infection. Bleeding. Allergic reactions to medicines. Damage to other structures or organs. Blood clotting caused by the prosthetic valve. Failure of the prosthetic valve. Other risks include: Abnormal heart rhythms. Need for pacemaker. Stroke. . What happens before the procedure? When to stop eating and drinking Follow instructions from your health care provider about what you may eat and drink. These may include: 8 hours before your procedure Stop eating most foods. Do not eat meat, fried foods, or fatty foods. Eat only light foods, such as toast or crackers. All liquids are okay except energy drinks and alcohol. 6 hours before your procedure Stop eating. Drink only clear liquids, such as water, clear fruit juice, black coffee, plain tea, and sports drinks. Do not drink energy drinks or alcohol. 2 hours before your procedure Stop drinking all liquids. You may be allowed to take medicines with small sips of water. If you do not follow your health care provider's instructions, your procedure may be delayed or canceled. Medicines Ask your health care provider about: Changing or stopping your regular medicines. These include any diabetes medicines or blood thinnersyou take. Taking medicines such as aspirin and ibuprofen. These medicines can thin your blood. Do not take these medicines unless your health care provider tells you to take them. Taking ooag-mup-uwxrefc medicines, vitamins, herbs, and supplements. You will be told about lifelong use of blood thinners (anticoagulants). It is important to understand the importance of taking these medicines, especially if you have a mechanical prosthesis. Tests You may have tests to examine your heart, such as: Echocardiogram. Cardiac catheterization. Cardiac MRI. Cardiac stress test. Other tests may include: Electrocardiogram (ECG). Carotid ultrasound. X-ray. Blood or urine tests. General instructions You will be asked to obtain "valve surgery clearance" from your dentist. This is to make sure that you do not have a collection of germs (abscess) in your mouth that can cause an infection of the newaortic prosthesis. Do not use any products that contain nicotine or tobacco for at least 4 weeks before the procedure.These products include cigarettes, chewing tobacco, and vaping devices, such as e-cigarettes. If you need help quitting, ask your health care provider. Ask your health care provider: How your surgery site will be marked. What steps will be taken to help prevent infection. These steps may include: Removing hair at the surgery site. Washing skin with a germ-killing soap. Taking antibiotic medicine. What happens during the procedure? An IV will be inserted into one of your veins. You may be given: A sedative. This helps you relax. Anesthesia. This will: Numb certain areas of your body. Make you fall asleep for surgery. An incision will be made in your chest, over your heart. This is an open heart surgery. You will be placed on a heart-lung bypass machine. This machine will provide oxygen to your body while your heart is undergoing surgery. Your damaged aortic valve will be completely removed. A prosthetic valve will be sewn into your heart. Your incision will be closed with stitches (sutures), skin glue, or adhesive tape. A bandage (dressing) will be placed over your incision. The procedure may vary among health care providers and hospitals. What happens after the procedure? Your blood pressure, heart rate, breathing rate, and blood oxygen level will be monitored closely in the intensive care unit. Before you leave the hospital, your new prosthetic valve will be checked with an echocardiogram. Summary If your aortic valve is not working properly, you may need a procedure to replace it with an artificial (prosthetic) valve. This is a safe procedure. However, there are risks, such as bleeding, infection, allergic reaction to medicines, blood clots, failure of the new valve, or stroke. Follow all instructions before the procedure. These include getting clearance from a dentist, eating and drinking restrictions, and stopping smoking. Your health care provider will perform the procedure using open heart surgery. This information is not intended to replace advice given to you by your health care provider. Make sure you discuss any questions you have with your health care provider. Document Revised: 06/27/2022 Document Reviewed: 06/27/2022 [employer] Patient Education 2023 [employer]. Patient Education on Sternal Precautions: Post Sternotomy (Adult) Why do I need to know about sternal precautions? A sternotomy is a surgical cut through the breastbone, as known as sternum. This is done to allow your surgeon to reach the organs and blood vessels in your chest. First, an incision is made in the skin over the breastbone. Then the sternum is cut through, top to bottom. When the surgery is finished, the surgeon will reconnect your sternum. This is often done with the use of wire, which will stay in your body even after your sternum is healed. Sternotomy. (N.D.). [employer]. Retrieved April 29, 2020. From https://[employer]/library_id/3100/topic/cvml_0058i/summary/. Full recovery from surgery with a sternotomy can take months. Recovery includes healing of the sternum as well as building up your physical strength. Each person recovers at a different pace. Follow the guidelines below and your surgeons recommendations to help you feel better as soon as possible. How do I get up and move around safely while supporting my sternum to heal? 1. No lifting, pushing, or pulling greater than 10 pounds for 6 weeks THEN No lifting, pushing, or pulling greater than 15-20 pounds for an additional 6 weeks (Total of 3 months) 2. Keep items close to the body with upper arms at your sides when light lifting is required (Think: T-Nasreen arms). Use T-nasreen arms when opening heavy doors as well. 3. You CAN reach both arms overhead/out to the sides/behind your back, push from a chair with both arms during sit to stand (with upper arms positioned close to your sides), and bend forward at the waist to perform self-care activities and light homemaking tasks as long as your post-activity pain level is not increased from your pre-activity pain level. 4. If you feel increased pain during/after performing these activities, STOP and modify the activity or ask for help. Your activities should require no more than a moderate level of exertion (Think: easy to medium effort). 5. Use caution when performing activities during which there could be unexpected pulling or force on the arms (i.e. walking your dog on a leash when the dog could pull to suddenly trisha something or riding a bike when you could fall and instinctively put your arms out in front to break the fall). Do not let anyone pull on your arms to help you. 6. Practice the pursed lip breathing technique: Breathe deeply and slowly in through your nose ~2 seconds, then out through your mouth with your lips pursed/puckered. Do not hold your breath during activities, especially when bending forward. 7. Use log rolling technique to get out of bed: To move from lying to sitting, bend your knees until your feet are flat, push with your feet to roll onto your side, hang your legs over the side of the bed and lift your torso up keeping upper arms positioned close to your sides as you push through yourelbow. To move from sitting to lying down, reverse the process. 8. Avoid sitting for long periods of time. Get up and move around at least every 2 hours while awake. Walk as much as possible, gradually increasing distance/time. Elevate your legs when you are not walking. 9. You may climb the stairs. Avoid using your arms to pull on the railing as you go up the stairs. 10. To transfer into the car, back in and sit on the seat, then swing your legs in. To transfer out of the car, reverse the process. 11. No driving until directed by your doctor (usually 4 weeks or while taking prescription pain medication). You may be a passenger in the car. Wear your seatbelt. You may place a washcloth over the incision to protect it from rubbing against the seatbelt. It is okay to sit in the front or back seat ofthe car. 12. Use your heart pillow to brace your chest when coughing or sneezing. Avoid holding the pillow during movement. Deep Coughing. (N.D.). [place]. Retrieved April 29, 2020. From https://www.[facility].org/health-library/deep-coughing#. How should I care for my skin incision? Shower daily using a clean rinsing soap and your hands. No sponges or wash cloths. It is okay to let the shower water stream onto your incision. Pat dry with a clean towel. Your incision is protected by glue this will wear off as you shower. Do Not pick at the loosening skin glue. You may have a mesh bandage that remains over your incision. It is okay to shower with this mesh inplace. You may trim the edges of the dressing if the corners roll or peel. Do Not remove the dressing on your own. You may have lillie in your incision. It is okay to shower with the lillie in place. NO soaking (tubs/pools/etc.) until the incision is completely healed. Incision should be open to air. DO NOT apply lotions, creams, ointments or powders over the incision. Incision Care After Coronary Bypass Surgery. (March 11). Seconds Count. Retrieved April 29, 2020. From http://www.secondscount.org/treatments/kskpdmnxhz-ivkmre-8/xsnbddxd-etlz-elrcu-c vsieigu-fnokma-dlkxlmi-3#.X8_SFrlYbec. Tell your healthcare provider about: Fever above 101.0 degrees F Signs of infection (redness, swelling, drainage or warmth at incision site) Shortness of breath not relieved by rest Fainting Weight gain of more than 2-3 pounds in 1 day or 3-4 pounds in 1 week New or increased swelling in your hands, feet or ankles Unrelieved pain at the incision site Changes in the location, type, or severity of pain New clicking, popping, or movement of the sternum Fast or irregular pulse Any unusual bleeding Reducing your risk and improving surgical healing It is very important to maintain appropriate Blood Glucose (Sugars) if you are diabetic. It is very important to quit smoking if you are a current smoker. It is very important to keep your follow up appointments with your family doctor and surgical team. Women should wear a front opening bra for support. You will take home an incentive spirometry device from the hospital. Keep it near you at home and use it daily: o Sit up straight and tall, hold the spirometer in your hands o Place mouthpiece in your mouth, making sure lips completely cover the mouthpiece o Breathe in slowly through the mouthpiece (like sucking in a thick milkshake), keeping the range indicator on the side of the chamber in the target zone and breathing in until the piston gets to your ria o Hold your breath for 3 seconds and then let it out o Complete 10 breaths every hour while you are awake o Complete until your outpatient follow-up appointment or until you are consistently up walking at least 3-4x/day What to expect at your first follow-up visit? Bring any requested information (Daily weight, Heart Rate, Blood Pressure) You will discuss returning to work. Additional information available at The Society of Thoracic Surgeons website. www.sts.org References 1. Sternotomy. [employer] Medical Dictionary, EpicTopic, https://www.SEAT 4a/medical/sternotomy. Accessed 2019. 2. Erik, Kaye, Luther N, Rigo Benton, Margaret Smith, Lyric Soriano, Kaye Almonte, Kia Lackey, & Kaye Khan. (2020). The Impact of a Less Restrictive Poststernotomy Activity Protocol Compared With Standard Sternal Precautions in Patients Following Cardiac Surgery. Physical Therapy 100(7), 9980-9496. 3. Lyric Torres., ROC Coronado, Devaughn Jeter, Lyric Prabhakar, Kaye Prabhakar, Karl, R, Erma, S, Verna AN, Angel, S, & Margaret Jensen. (2018). Standard restrictive sternal precautions and modified sternal precautions had similar effects in people after cardiac surgery via median sternotomy (SMART Trial): a randomized trial. Journal of Physiotherapy 64. 97-106. 4. Sternotomy. (N.D.). adQ. Retrieved April 29, 2020. From https://SkyBulls/library_id/3100/topic/cvml_0058i/summary/. 5. Deep Coughing. (N.D.). [facility]. Retrieved April 29, 2020. From https://www.[facility].org/health-library/deep-coughing#. 6. Incision Care After Coronary Bypass Surgery. (March 11). Seconds Count. Retrieved April 29, 2020. From http://www.secondscount.org/treatments/lmcdwuoomd-altnxu-5/ziqmlhlv-jano-cphyz-c tztytuj-vfpnhg-vnqenfx-3#.X8_SFrlYbec. Patient Care team information Care Team Personnel Name: Debby Bravo Position: HIS Supervisor_P Member Role: HIS Lifetime Name: MD Kalen, Pretty Position: Physician - Family Med Member Role: Primary Care Provider Address: [address] [place] [address] Care Team Related Persons Name: JIMBO HOLGUIN Name: SELWYN HOLGUIN Name: LUCIA HOLGUIN
--- OUTSIDE RECORDS SUMMARY | 2024-04-13 23:47 | External Medical Summary | Continuity of Care Document ---
Author Name Unknown Organization [facility] [address] [facility] [address] [place] [phone] Care Team Providers Care Paper Twister Tender Name Role Phone Pretty Higuera Primary Care Physician [phone] Encounter [facility] [id number] Date(s): 10/31/23 - 10/31/23 [facility] [address] [facility] [address] [facility] [address] [place] [address] [phone] Encounter Diagnosis ROUTINE GENERAL MEDICAL EXAMINATION AT A HEALTH CARE FACILITY(Discharge Diagnosis) - 10/31/23 HTN (hypertension)(Discharge Diagnosis) - 10/31/23 Encounter for health maintenance examination in adult(Discharge Diagnosis) - 10/31/23 Screening mammogram for breast cancer(Discharge Diagnosis) - 10/31/23 Screening for colon cancer(Discharge Diagnosis) - 10/31/23 Screening for hyperlipidemia(Discharge Diagnosis) - 10/31/23 Need for hepatitis C screening test(Discharge Diagnosis) - 10/31/23 Screening for osteoporosis(Discharge Diagnosis) - 10/31/23 Discharge Disposition: Home or Self Care Attending Physician: MD Benjamin [place] Allergies, Adverse Reactions, Alerts Substance Criticality Severity Reaction Reaction Severity Status lisinopril 1 Active 1Cough Assessment and Plan Extracted from: Title:Office Visit Note Author:MD Kan, Wasiq Date:10/31/23 1.ROUTINE GENERAL MEDICAL EXAMINATION AT A HEALTH CARE FACILITY 63 yo F presenting for annual physical exam -Routine diet and exercise appropriate for patient age/condition discussed -Routine dental/eye care per continuity -Routine screening per guidelinesreviewed- due for colonoscopy, DEXA, mammogram, Pap smear -Vaccinations reviewed- due for PCV20 (administered in office), RSV recommended -Return in 1 year for next annual physical 2.HTN (hypertension) -Chronic, stable, at goal BP <140/90 -Continue olmesartan 20 mg + amlodipine 5 mg 3.Screening mammogram for breast cancer -Mammogram ordered 4.Screening for colon cancer -Colonoscopy ordered 5.Need for hepatitis C screening test -Hepatitis C antibody ordered 6.Screening for hyperlipidemia -Lipid profile ordered 7.Screening for osteoporosis -DEXA ordered Immunizations Given and Recorded Vaccine Date Status Refusal Reason SARS-CoV-2 (COVID-19) mRNA BNT-162b2 vax 05/09/21 Recorded SARS-CoV-2 (COVID-19) mRNA BNT-162b2 vax 09/11/20 Recorded SARS-CoV-2 (COVID-19) mRNA BNT-162b2 vax 08/21/20 Recorded influenza virus vaccine, inactivated 01/30/20 Give n zoster vaccine, inactivated 03/14/19 Given zoster vaccine, inactivated 01/09/19 Given tetanus/diphtheria/pertuss, acel (Tdap) 07/24/15 G iven Medications amLODIPine 5 mg oral tablet Start: 08/01/23 4:55:00 PM EDT, 1 tab, PO, Daily, Disp# 30 tab, Refills: 2, Pharmacy: [id number] Start Date: 08/01/23 Stop Date: 10/30/23 Status: Ordered olmesartan 20 mg oral tablet Start: 08/01/23 4:55:00 PM EDT, 1 tab, PO, Daily, Disp# 30 tab, Refills: 2, Pharmacy: [id number] Start Date: 08/01/23 Stop Date: 10/30/23 Status: Ordered RSV vaccine preF3, recombinant preservative-free intramuscular injection Start: 10/31/23 9:59:00 AM EDT, 0.5 mL, IM, ONCE, Disp# 0.5 mL, Pharmacy: [id number] Start Date: 10/31/23 Status: Ordered Mental Status 10/31/23 Barriers to Learning one year None evide nt Mandatory Health Literacy Documentation Yes Health Literacy Communication Barriers N ever Primary Language Sami Problem List Condition Confirmation Course Effective Dates Status Health St atus Informant Adult BMI 38.0-38.9 kg/sq m Confirmed 07/29/11 Active Aortic aneurysm Confirmed Active Aortic valve stenosis Confirmed Active Bicuspid aortic valve Confirmed Active Grade II diastolic dysfunction Confirmed Active Family history of melanoma 1 Confirmed Active GERD Confirmed 07/29/11 Active HTN (hypertension) Confirmed Active Mild obstructive sleep apnea 2 Confirmed Active ROUTINE GENERAL MEDICAL EXAMINATION AT A HEALTH CARE FACILITY Confirmed Active Weight disorder Confirmed Active 1sister 2sleep study 2015 Diagnosis Diagnosis Type Effective Dates Health Status Clinical Service Informant Encounter for health maintenance examination in adult Discharge Diagnosis 10/31/23 Screening for hyperlipidemia Discharge Diagnosis 10/31/23 Non-Specified Screening for osteoporosis Discharge Diagnosis 10/31/23 Non-Specified ROUTINE GENERAL MEDICAL EXAMINATION AT A HEALTH CARE FACILITY Discharge Diagnosis 10/31/23 Non-Specified HTN (hypertension) Discharge Diagnosis 10/31/23 Non-Specified Need for hepatitis C screening test Discharge Diagnosis 10/31/23 Screening for colon cancer Discharge Diagnosis 10/31/23 Screening mammogram for breast cancer Discharge Diagnosis 10/31/23 Procedures Procedure Date Related Diagnosis Body Site Status Mammogram 1 06/20/20 Completed Left knee x-ray [...] recent to oldest [Reference Range]: 1 Height 169 cm (10/31/23 9:05 AM) Patient Weight 122.7 kg (10/31/23 9:05 AM) Body Mass Index 42.96 kg/m2 (10/31/23 9:05 AM) Heart Rate 80 bpm (10/31/23 9:05 AM) Respiratory Rate 18 br/min (10/31/23 9:05 AM) Blood Pressure 110/80mmHg (10/31/23 9:05 AM) Cuff Pulse Pressure 30 mmHg (10/31/23 9:05 AM) Social History Social History Type Response Smoking Status Never smoked cigaret mark Sex FCM Outpt Note * MD Alexander Christopher: MODIFY MD Alexander Christopher: MODIFY Event Display: FCM Outpt Note Authored Date: Chief Complaint CPE. History of Present Illness 63 yo M presenting for annual physical exam. Acute concerns today: -None Changes in medical/surgical history: None Meds: No recent changes, olmesartan 20 + amlodipine 5 mg for past few months OTC: None Diet: Balanced Exercise: Does not exercise Dental: Routine care Eye: Routine care Immunizations: UTD, due for PCV20 + RSV Occupation: [employer] Living situation: Home with , 1 son Sexual: Monogamous and active with Alcohol: Social use Tobacco: Never smoker Other recreational substances: None Breast cancer screening: Last mammogram a few years ago Osteoporosis screening: Did have DEXA at 48 due to [facility], normal Cervical cancer screening: Last Pap smear 3 years prior, due now PSA screening: N/A Colon cancer screening: Has never had colonoscopy or done Cologuard Diabetes screening: Normal fasting BSG in 09/2023 Hyperlipidemia screening: Has not had lipid profile Hepatitis C screening: Never done before Review of Systems Per HPI Physical Exam Vitals & Measurements HR:80(Monitored) RR:18 BP:110/80 SpO2:96% HT:169cm WT:122.7kg WT:122.700kg(Dosing) BMI:42.96 PHQ2 Data(Data Documented on:10/31/2023 09:01) Emotional health assessment NEGATIVE General: Well-appearing, no acute distress HEENT: PERRLA, EOMI, no conjunctivitis or discharge, moist mucous membranes, clear oropharynx without exudate or lesions, tympanic membranes are clear bilaterally, neck is supple without lymphadenopathy or thyromegaly Lungs: CTAB, unlabored respirations, no crackles or wheezes Cardiac: RRR, normal S1, S2, 3/6 systolic murmur at RUSB Abdomen: Soft, nontender, nondistended, no guarding or rebound MSK: Normal muscle bulk and tone in b/l UE and LE, FROM and 5/5 strength throughout Neurologic: Grossly alert and oriented, grosslyintact cranial nerves, no focal motor or sensorydeficits Extremities: distal LE pulses 2+ b/l, capillary refill <2s, no peripheral edema Skin: Warm, dry, no lesions Psych: Normal mood, stable affect Assessment/Plan 1.ROUTINE GENERAL MEDICAL EXAMINATION AT A HEALTH CARE FACILITY 63 yo F presenting for annual physical exam -Routine diet and exercise appropriate for patient age/condition discussed -Routine dental/eye care per continuity -Routine screening per guidelinesreviewed- due for colonoscopy, DEXA, mammogram, Pap smear -Vaccinations reviewed- due for PCV20 (administered in office), RSV recommended -Return in 1 year for next annual physical 2.HTN (hypertension) -Chronic, stable, at goal BP <140/90 -Continue olmesartan 20 mg + amlodipine 5 mg 3.Screening mammogram for breast cancer -Mammogram ordered 4.Screening for colon cancer -Colonoscopy ordered 5.Need for hepatitis C screening test -Hepatitis C antibody ordered 6.Screening for hyperlipidemia -Lipid profile ordered 7.Screening for osteoporosis -DEXA ordered Attestation Pt seen and examined in concert with Dr. Omer, agree with history and physical as documented above. Plan reviewed in detail. Any corrections or additions are noted here - annual physical with routine preventative care and recommendations as noted above. Problem List/Past Medical History Ongoing Adult BMI 38.0-38.9 kg/sq m Aortic aneurysm Aortic valve stenosis Bicuspid aortic valve Family history of melanoma GERD Grade II diastolic dysfunction HTN (hypertension) Mild obstructive sleep apnea Rash ROUTINE GENERAL MEDICAL EXAMINATION AT A HEALTH CARE FACILITY Weight disorder Resolved HYPERTENSION Procedure/Surgical History Mammogram| Service Date: 1Left knee x-ray| Service Date: 08/17/2018Cholecystectomy| Service Date: 08/18/2015Mammogram| Service Date: 08/14/2015Full sleep study| Service Date: 08/13/2015DNS (deviated nasal septum)| Service Date: 07/24/2015Mammogram| Service Date: 07/17/2012 Lithotripsy D&C Medications amLODIPine(amLODIPine 5 mg oral tablet), 5 mg= 1 tab, PO, Daily, 2 refills olmesartan(olmesartan 20 mg oral tablet), 20 mg= 1 tab, PO, Daily, 2 refills pneumococcal 20-valent conjugate vaccine(Prevnar 20), 0.5 mL, IM, ONCE RSV vaccine preF3, recombinant(RSV vaccine preF3, recombinant preservative-free intramuscular injection), 60 mcg= 0.5 mL, IM, ONCE Allergies lisinopril Social History Smoking Status Never smoked cigarettes Alcohol - Low Risk Employment/School Status:Employed Description:[employer]. Has tax law degree Exercise - Does not exercise Home/Environment - Comments: 3 kids - one local, other in [place] and one in [place] Grew up [place] in [place] Nutrition/Health - Low Risk Other - Comments: never had colo. last td - ? >10yrs ago Sexual - No Risk Substance Abuse - No Risk Tobacco - Denies Tobacco Use Family History Hypertension: Father. Skin cancer: Sister and Brother. [...] Screening due06/21/22and every 731day Adult Influenza Vaccine due11/19/22and every 1year Due Adult COVID-19 Vaccination due10/31/23Unknown Frequency Adult Social Determinants of Health Screening due10/31/23Unknown Frequency Colorectal Cancer Screening due10/31/23Unknown Frequency Falls Plan of Care due10/31/23Unknown Frequency Hepatitis C Screening due10/31/23One-time only Lipid Screening due10/31/23Unknown Frequency Osteoporosis Screening due10/31/23One-time only Pneumococcal Vaccine Older Adults due10/31/23One-time only Satisfied(in the past 1 year) Satisfied Body Mass Index on10/31/23.Satisfied by JV Calixto Vanessa T Electronic Signature on File Electronically Reviewed/Signed by: Dheeraj Omer MD Author Signature Dt/Tm:10/31/2023 10:13 AM Resident Department of Family Medicine Electronically Reviewed/Signed by: Thanh Alexander MD Cosigner Signature Dt/Tm: 11/01/2023 09:05AM Department of Family Medicine [place] Patient Care team information Care Team Personnel Name: Debby Bravo Position: HIS Supervisor_P Member Role: HIS Lifetime Name: MD Kalen, Pretty Position: Physician - Family Med Member Role: Primary Care Provider Address: Address: [address] [place] [address] Care Team Related Persons Name: JIMBO HOLGUIN Address: home [address] [facility] [place], [place] [id number] Name: SELWYN HOLGUIN Address: [place] Address: home [address] [employer], [place] [id number] Name: LUCIA HOLGUIN Address: [facility] Address: home [address] [facility] [place], [place] [id number]"
--- OUTSIDE RECORDS SUMMARY | 2024-04-13 23:47 | External Medical Summary | Continuity of Care Document ---
Author Name Unknown Organization [facility] [address] [place] [id number] Care Team Providers Care Dairy Hand Name Role Phone Pretty Higuera Primary Care Physician [phone] [id number] Date(s): 01/13/24 - 01/13/24 [facility] [address] [facility] [place] - [address] [place] [phone] Discharge Disposition: Home or Self Care Attending Physician: MD Leena, Tess Ibanez Allergies, Adverse [...] vaccine, inactivated 01/09/19 Given tetanus/diphtheria/pertuss, acel (Tdap) 3//16 G iven Medications aspirin 81 mg oral delayed release tablet Start: 12/21/23 9:44:00 AM EDT, 1 tab, PO, Daily, Disp# 30 tab, Refills: 3, Pharmacy: [id number] Start Date: 12/21/23 Stop Date: 04/19/24 Status: Ordered atorvastatin 80 mg oral tablet Start: 12/21/23 9:45:00 AM EDT, 1 tab, PO, Daily, Disp# 30 tab, Refills: 3, Pharmacy: [id number] Start Date: 12/21/23 Stop Date: 04/19/24 Status: Ordered metoprolol succinate 25 mg oral tablet, extended release Start: 11/04/23 3:59:00 PM EDT, 1 tab, PO, qhs, Disp# 90 tab, Refills: 3, Pharmacy: [id number] Start Date: 11/04/23 Status: Ordered olmesartan 40 mg oral tablet Start: 12/13/23 11:34:00 AM EDT, 1 tab, PO, Daily, Disp# 90 tab, Refills: 3, Pharmacy: [facility] Start Date: 12/13/23 Status: Ordered RSV vaccine preF3, recombinant preservative-free intramuscular injection Start: 10/31/23 9:59:00 AM EDT, 0.5 mL, IM, ONCE, Disp# 0.5 mL, Pharmacy: [id number] Start Date: 10/31/23 Status: Ordered Sutab oral tablet Start: 11/04/23 4:40:00 PM EDT, See Instructions, Disp# 24 tab, Refills: 0, As directed from writtenendoscopy directions, Pharmacy: [id number] Start Date: 11/04/23 Status: [...] mild obstructive sleep apnea 5? 2009 6normal Social History Social History Type Response Smoking Status Never smoked cigaret mark Sex Sex Representation Female (finding) Patient Care team information Care Team Personnel Name: Debby Bravo Position: HIS Supervisor_P Member Role: HIS Lifetime Name: MD Kalen, Pretty Position: Physician - Family Med Member Role: Primary Care Provider Address: [facility] [place] [address] [place] Care Team Related Persons Name: JIMBO HOLGUIN Name: SELWYN HOLGUIN Name: LUCIA HOLGUIN
--- OUTSIDE RECORDS SUMMARY | 2024-04-13 23:47 | External Medical Summary | Continuity of Care Document ---
Author Name Unknown Organization [place] [id number] [facility] Address [address] [place], [place] [id number] Care Team Providers Care Cnc Operator Name Role Phone Pretty Higuera Primary Care Physician [phone] Encounter [facility] [id number] Date(s): 10/19/23 - 10/19/23 [facility] [address], [facility] [address] [place] [address] [phone] Encounter Diagnosis HTN (hypertension)(Discharge Diagnosis) - 10/19/23 Discharge Disposition: Home or Self Care Attending Physician: LUCAS Bynum Sarah A Referring Physician: LUCAS Bynum Sarah A Allergies, Adverse Reactions, Alerts Substance Criticality Severity Reaction Reaction Severity Status lisinopril 1 Active 1Cough Immunizations Given and Recorded Vaccine Date Status Refusal Reason influenza virus vaccine, inactivated 01/30/20 Give n zoster vaccine, inactivated 03/14/19 Given zoster vaccine, inactivated 01/09/19 Given tetanus/diphtheria/pertuss, acel (Tdap) 3/3/16 G iven Medications amLODIPine 5 mg oral tablet Start: 08/01/23 4:55:00 PM EDT, 1 tab, PO, Daily, Disp# 30 tab, Refills: 2, Pharmacy: [id number] Start Date: 08/01/23 Stop Date: 10/30/23 Status: Ordered olmesartan 20 mg oral tablet Start: 08/01/23 4:55:00 PM EDT, 1 tab, PO, Daily, Disp# 30 tab, Refills: 2, Pharmacy: [id number] Start Date: 08/01/23 Stop Date: 10/30/23 Status: Ordered Problem List Condition Confirmation Course [...] Dates Health Status Cl inical Service Informant HTN (hypertension) Discharge Diagnosis 10/19/23 Non-Specified Procedures Procedure Date Related Diagnosis Body [...] Exam Date Time Procedure Performing Provider Status 10/19/23 3:56 PM Echo Stress, Exercise Lizet Durham Notes: (Echo Stress, Exercise) Reason For Exam: bolton, mod to severe aortic stenosis Echo Stress, Exercise Report Signatures Stress ECG Finalized by Dr. Jd Cole MD on 10/20/2023 05:29 PM Echo Finalized by Dr. Jd Cole MD on 10/20/2023 05:29 PM [place] Act 112: Yes - Discussed with patient Summary 1. Negative Exercise Stress ECG and [...] po prior to leaving the stress lab. Supervising: Cherelle Whitaker RN BMI: 44.39 Patient Info Name: DHAVAL MENDEZ Age: 63 years : 1960 Gender: Female Ht: 168 cm Wt: 125 kg BSA: 2.48 m2 Technical Quality: Technically difficult study, Good Exam Date: 10/19/2023 3:25 PM Exam Location: [facility] Patient Status: Outpatient Staff Ordering Physician: Noemi Bynum Stock Supervisor: Courtney Durham RDCS, T Attending Physician: Noemi Bynum Study Info CPT 87702 - 49336 - Indications R0600 - Dyspnea, unspecified Procedure(s) * An Exercise stress echocardiogram was performed. * Limited two-dimensional with spectral Doppler is performed during the stress echocardiogram. Exam Type: Exercise Stress ECG Summary Negative exercise ECG for ischemia. Protocol: Rodolfo Rest HR: 65 bpm Peak HR: 141 bpm Rest Sys BP: 168 mmHg Peak Sys BP: 280 mmHg Max Pred HR: 155 bpm % Max Pred HR: 91 % Target HR: 132 bpm Max RPP: 39,480 bpm*mmHg Farnsworth Score: 5 Target HR Summary: Patient's target heart rate was achieved BP Response: Patient exhibited a hypertensive response with stress Termination Reason: Target HR > 85% MPHM, Dyspnea, Fatigue, Hypertension Cardiac Symptoms: Dyspnea Max ST Seg Deviation: 0.00 mm Total Time: 5 min : 12 sec Rest Rider BP: 98 mmHg Peak Rider BP: 150 mmHg Angina Score: None Total METS: 7.00 Stress ECG Details Resting ECG Normal sinus rhythm. PRWP. Stress ECG No abnormal ST/T wave changes with exercise. Arrhythmias No arrhythmias were observed during the examination. Stress Echo Findings Left Ventricle Left ventricle becomes smaller and more vigorous with exercise. Normal LV wall motion response to exercise. Normal augmentation of all wall segments without evidence of ischemia with stress. Doppler Aortic valve stenosis remains moderate-severe post-stress. LVOT/AV ratio post stress is 0.31 - not significantly changed from resting ratio. Left Ventricle Small left ventricle for patient BSA. Normal left ventricular systolic function with no regional wall motion abnormalities. Ejection fraction as calculated by Biplane Simpsons method is 65%. Severe concentric left ventricular hypertrophy. Aortic Valve Heavily calcified, bicuspid aortic valve with anterior and posterior cusps (raphe between the left and right coronary cusps). Moderate to severe aortic stenosis (LVOT/AV ratio 0.27; RAMYA 1.0 cm2; AV mean PG 24 mmHg). Left Ventricular Outflow Tract Name Value Normal LVOT 2D LVOT Diameter 2.2 cm LVOT Doppler LVOT Peak Velocity 0.83 m/s LVOT Peak Gradient 3 mmHg LVOT Mean Gradient 2 mmHg LVOT VTI/AV VTI Ratio 0.28 LVOT Stroke Volume 81.40 ml LVOT Stroke Volume Index 0.03 l/m2 Phase:Post, Left Ventricular Outflow Tract Name Value Normal LVOT 2D LVOT Diameter 2.1 cm LVOT Doppler LVOT Peak Velocity 1.39 m/s LVOT Peak Gradient 8 mmHg LVOT Mean Gradient 3 mmHg LVOT Stroke Volume 99.45 ml LVOT Stroke Volume Index 0.04 l/m2 Aortic Valve Name Value Normal AV Doppler AV Peak Velocity 3.11 m/s <2.00 AV Peak Gradient 39 mmHg AV Mean Gradient 23 mmHg <20 AV VTI 78.12 cm AV Area (Cont Eq VTI) 1.0 cm2 >=2.0 AV Area (Cont Eq Hossein) 1.0 cm2 AV V1/V2 Ratio 0.27 AV Regurgitation 2D LVOT Area 3.8 cm2 Phase:Post, Aortic Valve Name Value Normal AV Doppler AV Peak Velocity 4.46 m/s <2.00 AV Peak Gradient 80 mmHg AV Mean Gradient 41 mmHg <20 AV VTI 97.00 cm AV Area (Cont Eq VTI) 1.0 cm2 >=2.0 AV Area (Cont Eq Hossein) 1.1 cm2 AV V1/V2 Ratio 0.31 AV Regurgitation 2D LVOT Area 3.6 cm2 Ventricles Name Value Normal LV Dimensions 2D/MM IVS Diastolic Thickness (2D) 1.8 cm 0.6-0.9 LVID Diastole (2D) 4.2 cm 3.3-5.1 LVIW Diastolic Thickness (2D) 1.6 cm 0.6-0.9 LVID Systole (2D) 3.1 cm 2.2-3.5 LVOT Diameter 2.2 cm LV Mass (2D Cubed) 301.61 g 67.00-162.00 LV Mass Index (2D Cubed) 0.01 g/cm2 0.00-0.01 Relative Wall Thickness (2D) 0.79 LV Fractional Shortening/Ejection Fraction 2D/MM LV Fractional Shortening (2D) 27 % 27-45 LV Diastolic Volume (4C MOD) 77 ml LV Diastolic Volume (2C MOD) 63 ml LV Diastolic Volume (BP MOD) 70 ml 46-106 LV Diastolic Volume Index (BP MOD) 28.19 ml/m2 29.00-61.00 LV Systolic Volume (BP MOD) 25 ml 14-42 LV Systolic Volume Index (BP MOD) 10.06 ml/m2 8.00-24.00 LV EF (BP MOD) 64 % 58-69 LV SV (BP MOD) 44.90 ml LV End Diastolic Volume (BP A-L) 73.47 ml LV End Systolic Volume (BP A-L) 24.53 ml LV EF (BP A-L) 67 % Phase:Post, Ventricles Name Value Normal LV Dimensions 2D/MM LVOT Diameter 2.1 cm Final Signed by:DO Cole Jason D Signed (Electronic Signature):10/19/2023 3:25 p Social History Social History Type Response Smoking Status Never smoked cigaret mark Sex Patient Care team information Care Team Personnel Name: Debby Bravo Position: HIS Supervisor_P Member Role: HIS Lifetime Name: MD Kalen, Pretty Position: Physician - Family Med Member Role: Primary Care Provider Address: Address: [facility] [address] Care Team Related Persons Name: JIMBO HOLGUIN Address: [address] [place] [id number] Name: SELWYN HOLGUIN Address: [facility] Address: home [address] [place], [place] [id number] Name: LUCIA HOLGUIN Address: [facility] Address: home [address] [facility] [id number]
--- OUTSIDE RECORDS SUMMARY | 2024-04-13 23:47 | External Medical Summary | Continuity of Care Document ---
Author Name Unknown Organization [facility] Address [address] [place] [phone] Care Team Providers Care Lift Truck Mechanic Name Role Phone Pretty Higuera Primary Care Physician [phone] Encounter [facility] [id number] Date(s): 02/14/24 - 02/14/[address] [phone] Discharge Disposition: Home or Self Care Attending [...] Daily, Disp# 30 tab, Refills: 3, Pharmacy: [id number] Start Date: 12/21/23 Stop Date: 04/19/24 Status: Ordered atorvastatin 80 mg oral tablet Start: 12/21/23 9:45:00 AM EDT, 1 tab, PO, Daily, Disp# 30 tab, Refills: 3, Pharmacy: [id number] Start Date: 12/21/23 Stop Date: 04/19/24 Status: Ordered metoprolol succinate 25 mg oral tablet, extended release Start: 11/04/23 3:59:00 PM EDT, 1 tab, PO, qhs, Disp# 90 tab, Refills: 3, Pharmacy: [facility] Start Date: 11/04/23 Status: Ordered olmesartan 40 mg oral tablet Start: 12/13/23 11:34:00 AM EDT, 1 tab, PO, Daily, Disp# 90 tab, Refills: 3, Pharmacy: [facility] Start Date: 12/13/23 Status: Ordered RSV vaccine preF3, recombinant preservative-free intramuscular injection Start: 10/31/23 9:59:00 AM EDT, 0.5 mL, IM, ONCE, Disp# 0.5 mL, Pharmacy: [id number] Start Date: 10/31/23 Status: Ordered Sutab oral tablet Start: 11/04/23 4:40:00 PM EDT, See Instructions, Disp# 24 tab, Refills: 0, As directed from writtenendoscopy directions, Pharmacy: [id number] Start Date: 11/04/23 Status: [...] 2009 6normal Results Laboratory List Name Date Creatinine, POC (RAD) (CREATININE,POC (R AD)) 02/14/24 Most recent to oldest [Reference Range]: 1 Cret, POC [0.6-1.3 mg/dL] 0.9 mg/dL (02/14/24 2:19 PM) Radiology Reports * Exam Date Time Procedure Performing Provider Status 02/14/24 2:[address] Angio Chest ; Final Notes: (CT Angio Chest) Reason For Exam: TAVR Protocol CT Angio Chest EXAMINATION: CTA Chest, Abdomen and Pelvis CLINICAL HISTORY: I35.0: Nonrheumatic aortic (valve) stenosis; I71.9: Aortic aneurysm of unspecified site, without ruptu; COMPARISON: No prior chest abdomen pelvis imaging available. TECHNIQUE: CTA chest abdomen and pelvis with coronal and sagittal reformats. Volume rendered and maximum intensity projection images were obtained and interpreted at a separate 3-D workstation. CONTRAST: Omnipaque 350 DOSE: Total Reported Dose Length Product (DLP) = 1740.51 mGy.cm FINDINGS: CTA: Diminutive persistent left SVC draining [...] 47.9mm Maximum descending diameter: 33 x 32mm Normal course and caliber of the abdominal aorta. Patent celiac, SMA, and SUE. Patent renal arteries. Accessory right renal artery. CHEST Pleura and Lungs: No suspicious pulmonary nodule. Dependent atelectasis. No pleural effusion. No pneumothorax Central airways: Patent. Lymph nodes: No lymphadenopathy. Thyroid and Mediastinum: Subcentimeter hypoattenuating thyroid nodules. Heart and Great vessels: No pericardial effusion. Cardiomegaly with mild coronary artery calcification. ABDOMEN Liver, Gallbladder \T\ bile ducts: Liver parenchyma is normal. No intra or extrahepatic biliary dilation. Cholecystectomy. Pancreas: Normal. Spleen: Normal . Adrenals: Normal. Kidneys, collecting system and ureters: Normal renal parenchyma. No hydroureteronephrosis. Retroperitoneum, lymph nodes, and vessels: No retroperitoneal lymphadenopathy. Bowel \T\ Mesentery: Nonobstructive bowel. No free air or free fluid. Mild colonic diverticulosis. PELVIS Bladder: Unremarkable for degree of distention. Reproductive organs: Unremarkable. Extraperitoneal, lymph nodes, vessels: No pelvic lymphadenopathy Osseous and body wall: No acute osseus or soft tissue abnormalities. Changes. IMPRESSION: 1. Aneurysmal dilation of the ascending aorta measuring up to 5 cm diameter. Mild dilation of the descending thoracic aorta (3.2 cm diameter). 2. Coarse calcifications of the aortic valve leaflets. [place] Act 112: This study does not meet the requirements of [place] Act 112. Dr. Yassine Parr is the dictating resident. Finalized reports status indicates that the attendinghas reviewed the images and report, and agrees with the interpretation. Preliminary report status should be regarded as NOT interpreted by the attending radiologist. Workstation ID: [id number] Final Dictated by:DO Parr Matthew Dictated DT/TM:02/16/2024 2:14 Resident:DO Parr Matthew Signed by:DO Renae Matthew D Signed (Electronic Signature):02/16/2024 2:13 p * Exam Date Time Procedure Performing Provider Status 02/14/24 2:[address] Angio Abdomen and Pelvis Lyric Schwab; Final Notes: (CT Angio Abdomen and Pelvis) Reason For Exam: Aortic Aneurysm Surveillance Protocol CT Angio Abdomen and Pelvis EXAMINATION: CTA Chest, Abdomen and Pelvis CLINICAL HISTORY: I35.0: Nonrheumatic aortic (valve) stenosis; I71.9: Aortic aneurysm of unspecified site, without ruptu; COMPARISON: No prior chest abdomen pelvis imaging available. TECHNIQUE: CTA chest abdomen and pelvis with coronal and sagittal reformats. Volume rendered and maximum intensity projection images were obtained and interpreted at a separate 3-D workstation. CONTRAST: Omnipaque 350 DOSE: Total Reported Dose Length Product (DLP) = 1740.51 mGy.cm FINDINGS: CTA: Diminutive persistent left SVC draining [...] 47.9mm Maximum descending diameter: 33 x 32mm Normal course and caliber of the abdominal aorta. Patent celiac, SMA, and SUE. Patent renal arteries. Accessory right renal artery. CHEST Pleura and Lungs: No suspicious pulmonary nodule. Dependent atelectasis. No pleural effusion. No pneumothorax Central airways: Patent. Lymph nodes: No lymphadenopathy. Thyroid and Mediastinum: Subcentimeter hypoattenuating thyroid nodules. Heart and Great vessels: No pericardial effusion. Cardiomegaly with mild coronary artery calcification. ABDOMEN Liver, Gallbladder \T\ bile ducts: Liver parenchyma is normal. No intra or extrahepatic biliary dilation. Cholecystectomy. Pancreas: Normal. Spleen: Normal . Adrenals: Normal. Kidneys, collecting system and ureters: Normal renal parenchyma. No hydroureteronephrosis. Retroperitoneum, lymph nodes, and vessels: No retroperitoneal lymphadenopathy. Bowel \T\ Mesentery: Nonobstructive bowel. No free air or free fluid. Mild colonic diverticulosis. PELVIS Bladder: Unremarkable for degree of distention. Reproductive organs: Unremarkable. Extraperitoneal, lymph nodes, vessels: No pelvic lymphadenopathy Osseous and body wall: No acute osseus or soft tissue abnormalities. Changes. IMPRESSION: 1. Aneurysmal dilation of the ascending aorta measuring up to 5 cm diameter. Mild dilation of the descending thoracic aorta (3.2 cm diameter). 2. Coarse calcifications of the aortic valve leaflets. [place] Act 112: This study does not meet the requirements of [place] Act 112. Dr. Yassine Parr is the dictating resident. Finalized reports status indicates that the attendinghas reviewed the images and report, and agrees with the interpretation. Preliminary report status should be regarded as NOT interpreted by the attending radiologist. Workstation ID: [id number] Final Dictated by:DO Parr Matthew Dictated DT/TM:02/16/2024 2:14 Resident:DO Parr Matthew Signed by:DO Renae Matthew D Signed (Electronic Signature):02/16/2024 2:13 p Social History Social History Type Response Smoking Status Never smoked cigaret mark Sex Sex Representation Female (finding) Patient Care team information Care Team Personnel Name: Nataliiaradha Debby Position: HIS Supervisor_P Member Role: HIS Lifetime Name: MD Kalen, Pretty Position: Physician - Family Med Member Role: Primary Care Provider Address: [facility] [place] [address] [place] Care Team Related Persons Name: JIMBO HOLGUIN Name: SELWYN HOLGUIN Name: LUCIA HOLGUIN
--- OUTSIDE RECORDS SUMMARY | 2024-04-13 23:47 | External Medical Summary | Continuity of Care Document ---
Author Name Unknown Organization [address] Address [address] [place] [phone] Care Team Providers Care Cell Biologist Name Role Phone Kalen Pretty Primary Care Physician [phone] [facility] [id number] Date(s): 01/03/24 - 01/03/24 [facility] [address], [facility] [place] [address] [phone] Encounter Diagnosis Status post CVA(Discharge Diagnosis) - 01/03/24 Aortic stenosis(Discharge Diagnosis) - 01/03/24 Bicuspid aortic valve(Discharge Diagnosis) - 01/03/24 Dilated aortic root(Discharge Diagnosis) - 01/03/24 Discharge Disposition: Home or Self Care Attending Physician: LUCAS Bynum Sarah A Allergies, Adverse [...] Daily, Disp# 30 tab, Refills: 3, Pharmacy: [id number] Start Date: 12/21/23 Stop Date: 04/19/24 Status: Ordered atorvastatin 80 mg oral tablet Start: 12/21/23 9:45:00 AM EDT, 1 tab, PO, Daily, Disp# 30 tab, Refills: 3, Pharmacy: [facility] Start Date: 12/21/23 Stop Date: 04/19/24 Status: Ordered metoprolol succinate 25 mg oral tablet, extended release Start: 11/04/23 3:59:00 PM EDT, 1 tab, PO, qhs, Disp# 90 tab, Refills: 3, Pharmacy: [facility] Start Date: 11/04/23 Status: Ordered olmesartan 40 mg oral tablet Start: 12/13/23 11:34:00 AM EDT, 1 tab, PO, Daily, Disp# 90 tab, Refills: 3, Pharmacy: [facility] Start Date: 12/13/23 Status: Ordered RSV vaccine preF3, recombinant preservative-free intramuscular injection Start: 10/31/23 9:59:00 AM EDT, 0.5 mL, IM, ONCE, Disp# 0.5 mL, Pharmacy: [facility] Start Date: 10/31/23 Status: Ordered Sutab oral tablet Start: 11/04/23 4:40:00 PM EDT, See Instructions, Disp# 24 tab, Refills: 0, As directed from writtenendoscopy directions, Pharmacy: [facility] Start Date: 11/04/23 Status: Ordered Mental Status 01/03/24 Barriers to Learning one year None evide nt Mandatory Health Literacy Documentation Yes Health Literacy Communication Barriers U nable to assess Primary Language Kazakh Problem List Condition Confirmation Course Effective Dates [...] Dates Health Status Cl inical Service Informant Bicuspid aortic valve Discharge Diagnosis 01/03/24 Non-Specified Dilated aortic root Discharge Diagnosis 01/03/24 Non-Specified Status post CVA Discharge Diagnosis 01/03/24 Non-Specified Aortic stenosis Discharge Diagnosis 01/03/24 Non-Specified Procedures Procedure Date Related Diagnosis Body [...] to oldest [Reference Range]: 1 Patient Weight 120 kg (01/03/24 9:26 AM) Heart Rate 65 bpm (01/03/24 9:26 AM) Respiratory Rate 18 br/min (01/03/24 9:26 AM) Blood Pressure 112/70mmHg (01/03/24 9:26 AM) BP Location # 1 Left Arm (01/03/24 9:26 AM) Social History Social History Type Response Smoking Status Never smoked cigaret mark Sex Sex Representation Female (finding) Patient Care team information Care Team Personnel Name: Debby Bravo Position: HIS Supervisor_P Member Role: HIS Lifetime Name: MD Kalen, Pretty Position: Physician - Family Med Member Role: Primary Care Provider Address: [address] [place] [address] Care Team Related Persons Name: JIMBO HOLGUIN Name: SELWYN HOLGUIN Name: LUCIA HOLGUIN
--- OUTSIDE RECORDS SUMMARY | 2024-04-13 23:47 | External Medical Summary | Continuity of Care Document ---
Author Name Unknown Organization [facility] [address] [address] [place] [address] [phone] Care Team Providers Care Polymer Materials Consultant Name Role Phone Pretty Higuera Primary Care Physician [phone] Encounter [facility] [id number] Date(s): 11/07/23 - 11/07/23 [facility] [address] [facility] [address] [facility] [address] [facility], [facility] [address] [place] [address] [phone] Encounter Diagnosis Cervical cancer screening(Discharge Diagnosis) - 11/07/23 Discharge Disposition: Home or Self Care Attending Physician: THEO Ricks Kimberly A Allergies, Adverse Reactions, Alerts Substance Criticality Severity Reaction Reaction Severity Status lisinopril 1 Active 1Cough Assessment and Plan Extracted from: Title:Pap Author:THEO Ricks Kimberly A Date:11/07/23 1.Cervical cancer screenin g Pap collected and sent for pathology Preventative health screening recommendations Cervical Cancer Screening Starting at age 21, pap test q3 years.Age 30-65may have pap and HPV testing q5 years or just a pap q3 years. Testing shouldstop after age 65unless high risk, immunocompromised or cancer survivor. (A, USPSTF. ACOG) Folic Acid All females capable of . 400-800 micrograms daily (A, USPSTF) Breast Cancer Screening Ages 50-74 q2 years (B, USPSTF). < 50 y/o based on patient risk (C, USPSTF). The USPSTF recommends AGAINSTteaching women the breast self-exam, instead recommending breast awareness without examination. Osteoporosis screening -Over age 65, and in younger women with risk factors. FRAX tool can be used to assess risk.http://www.shef.ac.uk/FRAX/tool.jsp Colorectal cancer screening -starting at age 45if there is no family hx (A, USPSTF, AA) - colonoscopy q10 yrs, flex sig q5 yrs, FIT testing yearly, cologuard every 3 years -Age 75 and olderscreening isnotrecommended unless there is cause for increased suspicion -Patient's with 1st degree relativeswith early onset colon CA should be screenedearlier than 50 Lipid screening -age 35and older unless at risk for CV disease, thenage 20(A, [facility]) Fasting glucose screening - Pts w/ sustained (treated or not) HTN of > 135/80 (B, AA/[facility]), h/o hyperlipidemia or HTN (Colombian), or risk based screening (ADA) Obesity -BMI > 30should be referred for "intensive, multicomponent behavioral interventions" - but everyone should have lifestyle modifications encouraged Further recommendations can be found at the AAFP's yearly published CPS recommendations summary http://www.aafp.org/dam/AAFP/documents/patient_care/clinical_recommendations /cps-recommendations.pdf or athttp://www.uspreventiveservicestaskforce.org/ Vaccination recommendations Td/Tdap: substitute 1 time dose of Tdap w/ Td booster then Td q10 years HPV: ages 11 to 21, ideally. May vaccinate up to 26. 3 dose series @ 0, 1-2 and 6 months HepB: indicated in: non-monogamous sexually active persons, IVDA, STD pts, MSM, healthcare workers, diabetics < 60 y/o (> 60 if at risk), ESRD. 3 dose series @ 0, 1, 3 months PCV-13:immunocompromised/asplenic pts > 19 y/o. Separate from PCV-23 by at least 1 year before/ 8 wks after PCV-23: all adults > 65 y/o. Adults < 65 y/o w/ chronic lung dz, CV dz, DM, CRF, liver disease, alcoholism immunocompromised states, residents of [place]/LT[place], and SMOK[place]. Re-vaccinate 1 time after 5 years. PCV20 instead of PCV23/13 Shingrix:adults > 50 y/o (regardless of previous exposure) Flu:yearly in patients > 6 months. Egg free in adults 18-49. Further vaccine recommendations can be found athttp://www.cdc.gov/vaccines/schedules/hcp/adult.html and there's an mariah. Immunizations Given and Recorded Vaccine Date Status [...] Daily, Disp# 30 tab, Refills: 2, Pharmacy: [id number] Start Date: 08/01/23 Stop Date: 10/30/23 Status: Ordered metoprolol succinate 25 mg oral tablet, extended release Start: 11/04/23 3:59:00 PM EDT, 1 tab, PO, qhs, Disp# 90 tab, Refills: 3, Pharmacy: [id number] Start Date: 11/04/23 Status: Ordered olmesartan 20 mg oral tablet Start: 08/01/23 4:55:00 PM EDT, 1 tab, PO, Daily, Disp# 30 tab, Refills: 2, Pharmacy: [id number] Start Date: 08/01/23 Stop Date: 10/30/23 Status: Ordered RSV vaccine preF3, recombinant preservative-free intramuscular injection Start: 10/31/23 9:59:00 AM EDT, 0.5 mL, IM, ONCE, Disp# 0.5 mL, Pharmacy: [id number] Start Date: 10/31/23 Status: Ordered Sutab oral tablet Start: 11/04/23 4:40:00 PM EDT, See Instructions, Disp# 24 tab, Refills: 0, As directed from writtenendoscopy directions, Pharmacy: [id number] Start Date: 11/04/23 Status: Ordered Mental Status 11/07/23 Barriers to Learning one year None evide nt Mandatory Health Literacy Documentation Yes Health Literacy Communication Barriers N ever Primary Language Khmer Problem List Condition Confirmation Course Effective Dates [...] Dates Health Status Cl inical Service Informant Cervical cancer screening Discharge Diagnosis 11/07/23 Non-Specified Procedures Procedure Date Related Diagnosis Body [...] 2009 6normal Results Laboratory List Name Date Thinprep TIS PAP And HPV E6/E7-CAP (Thin prep TIS PAP And HPV E6/E7-ARLN) 11/07/23 Most recent to oldest [Reference Range]: 1 Clinical Information-Quest: SEE COMMENT 1 (11/07/23 9:59 AM) 1Result Comment: THINPREP TIS PAP AND HPV mRNA E6/E7 Lab: [facility] CLINICAL INFORMATION: None given LMP: 1998 prev. Pap: NONE GIVEN prev. Bx: NONE GIVEN SOURCE: None given STATEMENT OF ADEQUACY: SATISFACTORY FOR EVALUATION INTERPRETATION/RESULT: Cytology Results: Negative for intraepithelial lesion or malignancy. Atrophic pattern; predominantly parabasal cells COMMENT: This case could not be evaluated with computer assisted technology. The slide was manually screened according to routine procedures. Parabasal cells in smears that lack maturation due to atrophy or other hormonal reasons cannot be differentiated from transformation zone cells. Accordingly, presence or absence of endocervical or transformation zone components cannot be reported in this patient. QUALITY CONTROL SPECIALIST: [facility] CT Screening Location: [place] [address] For questions contact Anatomic Pathology Client Services at [phone] EXPLANATORY NOTE: The Pap is a screening test for cervical cancer. It is not a diagnostic test and is subject to false negative and false positive results. It is most reliable when a satisfactory sample, regularly obtained, is submitted with relevant clinical findings and history, and when the Pap result is evaluated along with historic and current clinical information. Lab: [facility] HPV mRNA E6/E7 Not Detected Reference Range: Not Detected Methodology: Feed Preparation Operator-Mediated Amplification This assay detects E6/E7 viral messenger RNA (mRNA) from 14 high-risk HPV types (16,18,31,33,35,39,45,51,52,56,58,59,66,68). Cervical sources are required for HPV testing. If a vaginal source from a patient who has had a total hysterectomy with removal of cervix was submitted, please contact the testing laboratory for alternative testing options. For additional information, please refer to http://education.BabyWatch/faq/ENU764f2 (This link if provided for information/ educational purposes only.) THINPREP TIS PAP AND HPV mRNA E6/E7 PERFORMING SITE: [facility] [address] [address] Flame Annealing Machine Operator: YULY LOPEZ MD, CLIA: [id number] Specimen Received d/t: 11/08/2023 02:12:00 Vital Signs Most recent to oldest [Reference Range]: 1 Patient Weight 123.6 kg (11/07/23 8:04 AM) Heart Rate 80 bpm (11/07/23 8:04 AM) Respiratory Rate 18 br/min (11/07/23 8:04 AM) Blood Pressure 126/90mmHg (11/07/23 8:04 AM) Cuff Pulse Pressure 36 mmHg (11/07/23 8:04 AM) Social History Social History Type Response Smoking Status Never smoked cigaret mark Sex FCM Outpt Note * THEO Ricks, Elba Gunter: PERFORM Event Display: FCM Outpt Note Authored Date: [id number] Chief Complaint PAP. History of Present Illness Patient is a 63 yo female presenting for her pap/pelvic. : LMP:1998 Menarche: _ Menstrual Hx: Postmenopausal Regularity:N/A Length of menses:N/A [place]/metrorraghia:None Spotting:None control:N/A History of STI:None Breast concerns:None Sexuality & Activity:HeterosexualSingle Partner Safe relationship/ history of any abuse:Feeling safe, no abuse history Family Hx: History of breast, colon and ovarian cancer, osteoporosis and heart disease reviewed and updated inE Pap Hx: History of abnormal paps:No abnormal paps in the last 7 years Last pap:2019 Review of Systems ROS per HPI Physical Exam Vitals & Measurements HR:80(Monitored) RR:18 BP:126/90 SpO2:96% WT:123.600kg(Dosing) WT:123.6kg PHQ2 Data(Data Documented on:11/07/2023 08:03) Emotional health assessment NEGATIVE General: Alert and oriented in no acutes distress HEENT: Head is normocephalic and atraumatic. Neck is supple, no thyromegaly. Cardiovascular: Regular rate and rhythm, normal S1 and S2 heart sound, no murmur present. Lung: Clear to auscultation in all lung suarez without any wheezing, crackles, rales, or rhonchi. Good movement of air without increased respiratory effort. Breast Exam: Normal to inspection. No noted dimpling, color change, etc. Bilateral nipples are everted and without discharge to palpation. Palpation of the breasts reveals no tenderness or focal masses. Lymph: No supraclavicular or axillary lymphadenopathy Genital Exam: External genital anatomy is normal, no lesions. Urethralmeatus is midline. Vaginal mucosa is pink and rugated. Cervix is visualized. It is pink without discharge or lesions. Pap smearobtained. Bimanual exam reveals no cervical motion tenderness. There is no significant uterine or ovarian enlargement. No adnexal tenderness to palpation. Skin: Warm, dry, no rash Psych: Cooperative; appropriate mood and affect Genital exam chaperoned by: Assessment/Plan 1.Cervical cancer screening Pap collected and sent for pathology Preventative health screening recommendations Cervical Cancer Screening Starting at age 21, pap test q3 years.Age 30-65may have pap and HPV testing q5 years or just a pap q3 years. Testing shouldstop after age 65unless high risk, immunocompromised or cancer survivor. (A, USPSTF. ACOG) Folic Acid All females capable of . 400-800 micrograms daily (A, USPSTF) Breast Cancer Screening Ages 50-74 q2 years (B, USPSTF). < 50 y/o based on patient risk (C, USPSTF). The USPSTF recommends AGAINSTteaching women the breast self-exam, instead recommending breast awareness without examination. Osteoporosis screening -Over age 65, and in younger women with risk factors. FRAX tool can be used to assess risk.http://www.shef.ac.uk/FRAX/tool.jsp Colorectal cancer screening -starting at age 45if there is no family hx (A, USPSTF, AAFP) - colonoscopy q10 yrs, flex sig q5 yrs, FIT testing yearly, cologuard every 3 years -Age 75 and olderscreening isnotrecommended unless there is cause for increased suspicion -Patient's with 1st degree relativeswith early onset colon CA should be screenedearlier than 50 Lipid screening -age 35and older unless at risk for CV disease, thenage 20(A, AAFP) Fasting glucose screening - Pts w/ sustained (treated or not) HTN of > 135/80 (B, AAFP/USPSTF), h/o hyperlipidemia or HTN (Colombian), or risk based screening (ADA) Obesity -BMI > 30should be referred for "intensive, multicomponent behavioral interventions" - but everyone should have lifestyle modifications encouraged Further recommendations can be found at the AAFP's yearly published CPS recommendations summary http://www.aafp.org/dam/AAFP/documents/patient_care/clinical_recommendations /cps-recommendations.pdf or athttp://www.uspreventiveservicestaskforce.org/ Vaccination recommendations Td/Tdap: substitute 1 time dose of Tdap w/ Td booster then Td q10 years HPV: ages 11 to 21, ideally. May vaccinate up to 26. 3 dose series @ 0, 1-2 and 6 months HepB: indicated in: non-monogamous sexually active persons, IVDA, STD pts, MSM, healthcare workers, diabetics < 60 y/o (> 60 if at risk), ESRD. 3 dose series @ 0, 1, 3 months PCV-13:immunocompromised/asplenic pts > 19 y/o. Separate from PCV-23 by at least 1 year before/ 8 wks after PCV-23: all adults > 65 y/o. Adults < 65 y/o w/ chronic lung dz, CV dz, DM, CRF, liver disease, alcoholism immunocompromised states, residents of [place]/LT[place], and SMOKERS. Re-vaccinate 1 time after 5 years. PCV20 instead of PCV23/13 Shingrix:adults > 50 y/o (regardless of previous exposure) Flu:yearly in patients > 6 months. Egg free in adults 18-49. Further vaccine recommendations can be found athttp://www.cdc.gov/vaccines/schedules/hcp/adult.html and there's an mariah. Problem List/Past Medical History Ongoing Adult BMI [...] mg= 1 tab, PO, Daily, 2 refills magnesium sulfate/potass Cl/sodium sulf(Sutab oral tablet), See Instructions metoprolol(metoprolol succinate 25 mg oral tablet, extended release), 25 mg= 1 tab, PO, qhs, 3 refills olmesartan(olmesartan 20 mg oral tablet), 20 [...] 3 kids - one local, other in [place] and one in [place] G[place] up around [place]. in [place] [employer] since 1983 Nutrition/Health - Low Risk Other [...] due11/19/22and every 1year Due Adult COVID-19 Vaccination due11/07/23Unknown Frequency Adult Social Determinants of Health Screening due11/07/23Unknown Frequency Colorectal Cancer Screening due11/07/23Unknown Frequency Falls Plan of Care due11/07/23Unknown Frequency Osteoporosis Screening due11/07/23One-time only Pneumococcal Vaccine Older Adults due11/07/23One-time only Satisfied(in the past 1 year) Satisfied Body Mass Index on10/31/23.Satisfied by [facility] [employer] Vanessa T Hepatitis C Screening on11/04/23.Satisfied by Contributor_system, [facility] Electronic Signature on File Electronically Reviewed/Signed by: Elba Ricks PA-C Author Signature Dt/Tm:11/07/2023 08:35 AM Department of Family Medicine [facility] Patient Care team information Care Team Personnel Name: Debby Bravo Position: HIS Supervisor_P Member Role: HIS Lifetime Name: MD Kalen, Pretty Position: Physician - Family Med Member Role: Primary Care Provider Address: Address: [address] [place] [address] Care Team Related Persons Name: JIMBO HOLGUIN Address: home [address] [place], [place] [phone] Name: SELWYN HOLGUIN Address: [place] Address: home [address] [place], [place] [phone] Name: LUCIA HOLGUIN Address: [facility] Address: home [address] [place], [place] [id number]
--- OUTSIDE RECORDS SUMMARY | 2024-04-13 23:47 | External Medical Summary ---
Author Name Unknown Address Unknown Organization : Laboratory Report Ordering Provider Test Date Status Rambo Arreola 11/07/2023 09:59:00 Final Observation Date Value Abnormality Reference (Units ) Status Clinical information 11/09/2023 12:19:11 SEE COMMENT Final THINPREP TIS PAP AND HPV mRN A E6/E7
Lab: [facility]
CLINICAL INFORMATION: None given
[...] components
cannot be reported in this patient.

ENGINEER GEOPHYSICAL LABORATORY: [facility] [place]
CT Screening Location: [facility]
[address] [place] [id number]

For questions contact Anatomic Pathology Client Services at [phone]

EXPLANATORY NOTE:

The Pap is a screening test for cervical cancer. It is
not a diagnostic test and is subject to false negative
and false positive results. It is most reliable when a
satisfactory sample, regularly obtained, is submitted
with relevant clinical findings and history, and when
the Pap result is evaluated along with historic and
current clinical information.

Lab: [facility]
HPV mRNA E6/E7 Not Detected
Reference Range: Not Detected
Methodology: Salsa Dance Instructor-Mediated Amplification

This assay detects E6/E7 viral messenger RNA (mRNA) from 14
high-risk HPV types (16,18,31,33,35,39,45,51,52,56,58,59,66,68).

Cervical sources are required for HPV testing.
If a vaginal source from a patient who has had a
total hysterectomy with removal of cervix was
submitted, please contact the testing laboratory
for alternative testing options.

For additional information, please refer to
http://education.TurnTide/faq/BSK336u6
(This link if provided for information/
educational purposes only.)

THINPREP TIS PAP AND HPV mRNA E6/E7

PERFORMING SITE:

[facility]
[address] [place] [address]
[place] [address]
Vending Technician: YULY LOPEZ MD, CLIA: [id number]

Specimen Received d/t: 11/08/2023 02:12:00 Performing Location
--- OUTSIDE RECORDS SUMMARY | 2024-04-13 23:47 | External Medical Summary | Continuity of Care Document ---
Author Name Unknown Organization [facility] [address] [facility] Address [address] [place] [address] [phone] Care Team Providers Care Auto Rebuilder Name Role Phone Kalen Pretty Primary Care Physician [phone] [id number] Date(s): 12/13/23 - 12/13/23 [facility] [address], [address] [place] [address] [phone] Encounter Diagnosis HTN (hypertension)(Discharge Diagnosis) - 12/13/23 Hypertensive response to exercise(Discharge Diagnosis) - 12/13/23 Aortic valve stenosis(Discharge Diagnosis) - 12/13/23 Bicuspid aortic valve(Discharge Diagnosis) - 12/13/23 Discharge Disposition: Home or Self Care Attending Physician: LUCAS Bynum Sarah A Allergies, Adverse Reactions, Alerts Substance Criticality Severity Reaction Reaction Severity Status lisinopril 1 Active 1Cough Assessment and Plan Extracted from: Title:Cardiology Office Visit Note Author:LUCAS Lynn rd, Sarah A Date:12/13/23 Impression: 1. Moderate to severely stenosed bicuspid aortic valve with dilated ascending aorta at 4.8 cm 2. Moderately elevated pulmonary pressures 3. Grade II diastolic dysfunction 4. 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 Poorly controlled HTN 6. Short runs of NSVT on Holter at [facility] 10/2023 7. Hypertensive response to exercise on stress echo 09/2023 Agueda's Holter study after her hospitalizationin [facility] showed short runs of NSVT. We discussed thatgiven her normalLV function it makes it less likely that she will havea malignant rhythm. However she should be maintained on metoprolol which she was started on and is tolerating. Her stress echo was negative for ischemia but did show hypertensive response to exercise. She was started back on her amlodipine and olmesartan which she had been on prior to hersyncopal episodeand subsequent hospitalizationat [facility]. Unfortunately she has had significant swelling in her lower extremities with the amlodipine. I will have her discontinue and double her olmesartan to 40 mg daily. She will BMP in 10 days. Her shortness of breath did improve with better blood pressure control. She has not completed her sleep study yet. She will return to the clinic in3 months Immunizations Given and Recorded Vaccine Date Status Refusal Reason SARS-CoV-2 (COVID-19) mRNA BNT-162b2 vax 05/09/21 Recorded SARS-CoV-2 (COVID-19) mRNA BNT-162b2 vax 09/11/20 Recorded SARS-CoV-2 (COVID-19) mRNA BNT-162b2 vax 08/21/20 Recorded influenza virus vaccine, inactivated 01/30/20 Give n zoster vaccine, inactivated 03/14/19 Given zoster vaccine, inactivated 01/09/19 Given tetanus/diphtheria/pertuss, acel (Tdap) 07/24/15 G iven Medications metoprolol succinate 25 mg oral tablet, extended release Start: 11/04/23 3:59:00 PM EDT, 1 tab, PO, qhs, Disp# 90 tab, Refills: 3, Pharmacy: [id number] Start Date: 11/04/23 Status: Ordered olmesartan 40 mg oral tablet Start: 12/13/23 11:34:00 AM EDT, 1 tab, PO, Daily, Disp# 90 tab, Refills: 3, Pharmacy: [id number] Start Date: 12/13/23 Status: Ordered rosuvastatin 10 mg oral tablet Start: 11/14/23 2:19:00 PM EDT, 1 tab, PO, Daily, Disp# 30 tab, Refills: 2, Pharmacy: [id number] Start Date: 11/14/23 Stop Date: 02/12/24 Status: Ordered RSV vaccine preF3, recombinant preservative-free intramuscular injection Start: 10/31/23 9:59:00 AM EDT, 0.5 mL, IM, ONCE, Disp# 0.5 mL, Pharmacy: [id number] Start Date: 10/31/23 Status: Ordered Sutab oral tablet Start: 11/04/23 4:40:00 PM EDT, See Instructions, Disp# 24 tab, Refills: 0, As directed from writtenendoscopy directions, Pharmacy: [id number] Start Date: 11/04/23 Status: Ordered Mental Status 12/13/23 Barriers to Learning one year None evide nt Mandatory Health Literacy Documentation Yes Health Literacy Communication Barriers N ever Primary Language [place] Problem List Condition Confirmation Course Effective Dates [...] Effective Dates Health Status Clinical Service Informant HTN (hypertension) Discharge Diagnosis 12/13/23 Non-Specified Bicuspid aortic valve Discharge Diagnosis 12/13/23 Non-Specified Hypertensive response to exercise Discharge Diagnosis 12/13/23 Non-Specified Aortic valve stenosis Discharge Diagnosis 12/13/23 Non-Specified Procedures Procedure Date Related Diagnosis Body [...] to oldest [Reference Range]: 1 Patient Weight 113.1 kg (12/13/23 11:23 AM) Heart Rate 74 bpm (12/13/23 11:23 AM) Respiratory Rate 16 br/min (12/13/23 11:23 AM) Blood Pressure 126/92mmHg (12/13/23 11:23 AM) Cuff Pulse Pressure 34 mmHg (12/13/23 11:23 AM) BP Location # 1 Left Arm, Manual (12/13/23 11:23 AM) Social History Social History Type Response Smoking Status Never smoked cigaret mark Sex Sex Representation Female (finding) Cardiology Outpatient Note * LUCAS Bynum Noemi Lyric: PERFORM, MODIFY, MODIFY, MODIFY Event Display: Cardiology Outpt Note Authored Date: Primary Care Provider MD Kalen, Pretty Chief Complaint 6 month follow-up History of Present Illness Ms. Strong presents for follow up of her history of hypertensive response to exercise and moderateto severe aortic stenosis with a bicuspid aortic valve. She has been under a lot of stress as her brother was killed in an accident recently. She has not had any sob or chest pain. Since resuming the amlodipine she has had a lot of swelling in her feet such that she can't get her shoes on Her home bps were 120s/70s-80s. Review of Systems All other systems reviewed and negative except as discussed in the HPI Physical Exam Vitals & Measurements HR:74(Monitored) RR:16 BP:126/92 SpO2:98% WT:113.100kg(Dosing) WT:113.1kg Physical Examination General: Alert and oriented, No acute distress. Respiratory: Lungs are clear to auscultation, Respirations are non-labored. Cardiovascular: Normal rate, Regular rhythm,3/6systolicmurmur, bilateral LE edema Integumentary: Warm, Dry, Hundred Neurologic: Alert, Oriented. Cognition and Speech: Speech clear and coherent. Psychiatric: Cooperative, Appropriate mood & affect. Assessment/Plan Impression: 1. Moderate to severely stenosed bicuspid aortic valve with dilated ascending aorta at 4.8 cm 2. Moderately elevated pulmonary pressures 3. Grade II diastolic dysfunction 4. 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 Poorly controlled HTN 6. Short runs of NSVT on Holter at [facility] 10/2023 7. Hypertensive response to exercise on stress echo 09/2023 Agueda's Holter study after her hospitalizationin [facility] showed short runs of NSVT. Wediscussed thatgiven her normalLV function it makes it less likely that she will havea malignant rhythm. However she should be maintained on metoprolol which she was started on and is tolerating. Her stress echo was negative for ischemia but did show hypertensive response to exercise. She wasstarted back on her amlodipine and olmesartan which she had been on prior to hersyncopal episodeand subsequent hospitalizationat [facility]. Unfortunately she has had significant swelling in her lower extremities with the amlodipine. I will have her discontinue and double her olmesartan to 40 mg daily. She will BMP in 10 days. Her shortness of breath did improve with better blood pressure control. She has not completed her sleep study yet. She will return to the clinic in3 months Problem List/Past Medical History Ongoing Adult BMI [...] 07/24/2015Mammogram| Service Date: 07/17/2012 Lithotripsy D&C Medications magnesium sulfate/potass Cl/sodium sulf(Sutab oral tablet), See Instructions metoprolol(metoprolol succinate 25 mg oral tablet, extended release), 25 mg= 1 tab, PO, qhs, 3 refills olmesartan(olmesartan 40 mg oral tablet), 40 mg= 1 tab, PO, Daily, 3 refills pneumococcal 20-valent conjugate vaccine(Prevnar 20), 0.5 mL, IM, ONCE rosuvastatin(rosuvastatin 10 mg oral tablet), 10 mg= 1 tab, PO, Daily, 2 refills RSV vaccine preF3, recombinant(RSV vaccine preF3, recombinant preservative-free intramuscular injection), 60 mcg= 0.5 mL, IM, ONCE Allergies lisinopril Social History Smoking Status Never smoked cigarettes Alcohol - Low Risk Employment/School Status:Employed Description:[employer]. Has tax law degree Exercise - Does not exercise Home/Environment - Comments: 3 kids - one local, other in [place] and one in [place] Grew up around [place]. in [place] since 1983 Nutrition/Health - Low Risk Other - Comments: never had colo. last td - ? >10yrs ago Sexual - No Risk Substance Abuse - No Risk Tobacco - Denies Tobacco Use Family History Breast cancer: MGM. Hypertension: Father. Skin cancer: Sister and Brother. Stroke: Father. Type II diabetes mellitus: Father. Health Status Family Member(s) Electronic Signature on File CC: Pretty Higuera MD [address] [place] [address] Electronically Reviewed/Signed by: LUCAS Cardenas Author Signature Dt/Tm:12/13/2023 01:20 PM [facility] [place] [facility] Patient Care team information Care Team Personnel Name: Debby Bravo Position: HIS Supervisor_P Member Role: HIS Lifetime Name: MD Higuera Madhavi Position: Physician - Family Med Member Role: Primary Care Provider Address: [address] [place] [address] [place] Care Team Related Persons Name: JIMBO HOLGUIN Name: SELWYN HOLGUIN Name: LUCIA HOLGUIN"
--- OUTSIDE RECORDS SUMMARY | 2024-04-13 23:47 | External Medical Summary | Continuity of Care Document ---
Author Name Unknown Organization [facility] Address [address] [place] [phone] Care Team Providers Care Respite Coordinator Name Role Phone Pretty Higuera Primary Care Physician [phone] Encounter [facility] [id number] Date(s): 03/06/24 - 03/06/[address] [phone] Discharge Disposition: Home or Self Care Attending Physician: MD Segura Aaron Referring Physician: MD Leena, [facility] I[facility]z Allergies, Adverse Reactions, Alerts Substance Criticality Severity Reaction Reaction Severity Status lisinopril 1 Active 1Cough Functional Status 03/06/24 History of Fall in Last 3 Months Dickerson N o Presence of Secondary Diagnosis Dickerson No Use of Ambulatory Aid Dickerson None/bedrest /nurse assist IV/Heparin Lock Fall Risk Dickerson No Gait/Transferring Fall Risk Dickerson Normal /bedrest/immobile Mental Status Fall Risk Dickerson Oriented t o own ability Dickerson Fall Risk Score 0 Dickerson Fall Risk No Risk 03/06/24 ADLs Independent Facial Symmetry Symmetric Gait Steady Swallowing Difficulty Unable to assess Level of Consciousness Neuro Alert Hallucinations Present None Speech Pattern Aphasic, Inappropriate, Slurred Immunizations Given and Recorded Vaccine Date Status Refusal Reason SARS-CoV-2 (COVID-19) mRNA BNT-162b2 vax 05/09/21 Recorded SARS-CoV-2 (COVID-19) mRNA BNT-162b2 vax 09/11/20 Recorded SARS-CoV-2 (COVID-19) mRNA BNT-162b2 vax 08/21/20 Recorded influenza virus vaccine, inactivated 01/30/20 Give n zoster vaccine, inactivated 03/14/19 Given zoster vaccine, inactivated 01/09/19 Given tetanus/diphtheria/pertuss, acel (Tdap) 07/24/15 G iven Medications aspirin 81 mg oral delayed release tablet Start: 12/21/23 9:44:00 AM EDT, 1 tab, PO, Daily, Disp# 30 tab, Refills: 3, Pharmacy: [id number] Start Date: 12/21/23 Stop Date: 04/19/24 Status: Ordered atorvastatin 80 mg oral tablet Start: 12/21/23 9:45:00 AM EDT, 1 tab, PO, Daily, Disp# 30 tab, Refills: 3, Pharmacy: [id number] Start Date: 12/21/23 Stop Date: 04/19/24 Status: Ordered metoprolol succinate 25 mg oral tablet, extended release Start: 11/04/23 3:59:00 PM EDT, 1 tab, PO, qhs, Disp# 90 tab, Refills: 3, Pharmacy: [id number] Start Date: 11/04/23 Status: Ordered olmesartan 40 mg oral tablet Start: 12/13/23 11:34:00 AM EDT, 1 tab, PO, Daily, Disp# 90 tab, Refills: 3, Pharmacy: [id number] Start Date: 12/13/23 Status: Ordered Sutab oral tablet Start: 11/04/23 4:40:00 PM EDT, See Instructions, Disp# 24 tab, Refills: 0, As directed from writtenendoscopy directions, Pharmacy: [id number] Start Date: 11/04/23 Status: Ordered [...] 1 06/20/20 Completed Left knee x-ray 2 3/28/19 Complet ed Cholecystectomy 08/18/15 Completed Mammogram 3 [...] Results Laboratory List Name Date Creatinine, POC (Cath) (CREATINE,POC (CA TH)) 03/06/24 Istat Gases Venous (CCL, HVOU) (I-STAT G ,MIRA(CCL,HVOU)) 03/06/24 Most recent to oldest [Reference Range]: 1 Hct, POC [38-51 %] 41 % (03/06/24 8:00 AM) Hgb, POC [12-17 g/dL] 13.9 g/dL (03/06/24 8:00 AM) Base Deficit (v), POC [0-2 mmol/L] 1 mmo l/L (03/06/24 8:00 AM) Glu (wb), POC by IStat [70-105 mg/dL] 99 mg/dL (03/06/24 8:00 AM) SaO2(v), POC [20-90 %] 30 % (03/06/24 8:00 AM) Ion Ca(wb), POC [1.12-1.32 mmol/L] 1.26 mmol/L (03/06/24 8:00 AM) Na (wb), POC [138-146 mmol/L] 142 mmol/L (03/06/24 8:00 AM) K (wb), POC [3.5-4.9 mmol/L] 3.9 mmol/L (03/06/24 8:00 AM) pH (v), POC [7.31-7.41 unit] 7.322 unit (03/06/24 8:00 AM) pCO2 (v), POC [41-51 mmHg] 50.8 mmHg (03/06/24 8:00 AM) pO2 (v), POC [15-60 mmHg] 20 mmHg (03/06/24 8:00 AM) HCO3(v), POC [23-28 mmol/L] 26.6 mmol/L (03/06/24 8:00 AM) Cret, POC [0.6-1.3 mg/dL] 0.8 mg/dL (03/06/24 8:04 AM) Temp(v) 36.0 C (03/06/24 8:00 AM) Vital Signs Most recent to oldest [Reference Range]: 1 2 3 Height 167.64 cm (03/06/24 7:27 AM) 167.64 cm (03/05/24 1:35 PM) Patient Weight 112.7 kg (03/06/24 7: AM) Body Mass Index 40.1 kg/m2 (03/06/24: AM) Temperature [36.5-37.9 DegC] 36.0 DegC *LOW* (03/06/24 7: AM) Heart Rate 52 bpm (03/06/24 10:00 AM) 54 bpm (03/06/24 9:45 AM) 52 bpm (03/06/24 9:30 AM) Respiratory Rate 9 br/min (03/06/24 10:00 AM) 16 br/min (03/06/24 9:45 AM) 9 br/min (03/06/24 9:30 AM) Blood Pressure 106/75mmHg (03/06/24 9:30 AM) 122/79mmHg (03/06/24 9:15 AM) 113/69mmHg (03/06/24 9:00 AM) Mean Blood Pressure 83 mmHg (03/06/24 9:30 AM) 92 mmHg (03/06/24 9:15 AM) 83 mmHg (03/06/24 9:00 AM) Cuff Pulse Pressure 31 mmHg (03/06/24 9:30 AM) 43 mmHg (03/06/24 9:15 AM) 44 mmHg (03/06/24 9:00 AM) Social History Social History Type Response Smoking Status Never smoked cigaret mark Sex Sex Representation Female (finding) EKG study * Contributor_system, [id number]: VERIFY, PERFORM Event Display: EKG Authored Date: Please click on link to see image. Pre-OP H & P * MD Segura Aaron: MODIFY MD Segura Aaron: MODIFY, PERFORM Shanice Rao MD, Johnnie: PERFORM, MODIFY Shanice Rao MD, Johnnie: MODIFY, MODIFY Shanice Rao MD, Johnnie: MODIFY, MODIFY Shanice Rao MD, Johnnie: MODIFY, MODIFY Shanice Rao MD, Johnnie: MODIFY Event Display: Pre-OP H & P Authored Date: [id number] PRE-OPERATIVE HISTORY AND PHYSICAL Name: DHAVAL MENDEZ Patient Number: [id number] : [id number] Date of Service: 03/06/2024 PRE-OP Diagnosis: Severe (Bicuspid AV) Planned Procedure: LHC + Coronary angiogram Chief Complaint: Pre-op evaluation History of Present Illness (including history relevant to procedure): _ 63 y/o female with medical history of aortic aneurysm (5cm), bicuspid aortic valve with severe stenosis, melanoma, GERD, stroke, HTN and RUBEN who presents today for LHC and coronary angiogram. The patient explains that she was recently evaluated by CT surgery (Dr. Stern) for surgical management of her BAV. She recently began the work up necessary for her [...] of 40 mmHg and DI of 0.23. Past Medical History: Problems: Stroke Aortic valve stenosis HTN (hypertension) ROUTINE GENERAL MEDICAL EXAMINATION AT A HEALTH CARE FACILITY Grade II diastolic dysfunction Mild obstructive sleep apnea Bicuspid aortic valve Aortic aneurysm Weight disorder Family history of melanoma GERD Adult BMI 38.0-38.9 kg/sq m Rash Procedure History Procedure Procedure Date Comments D&C Lithotripsy Mammogram 06/20/2020 - ACR BI RADS Cat 1 NEGATIVE Left knee x-ray 08/17/2018 - Minimal degenerative change. Trace joint effusion. No evidence for acute bony pathology. Cholecystectomy 08/18/2015 Mammogram 08/14/2015 - No malignancy. One year screening recommended. Full sleep study 08/13/2015 - [facility] - mild obstructive sleep apnea DNS (deviated nasal septum) 07/24/2015 - ? 2010 Mammogram 07/17/2012 - normal Allergies and Sensitivities: lisinopril Current Home Meds: (Last Updated 02/13 15:07) aspirin (aspirin 81 mg oral delayed release tablet) 81 mg PO Daily atorvastatin (atorvastatin 80 mg oral tablet) 80 mg PO Daily magnesium sulfate/potass Cl/sodium sulf (Sutab oral tablet) As directed from written endoscopy directions metoprolol (metoprolol succinate 25 mg oral tablet, extended release) 25 mg PO qhs olmesartan (olmesartan 40 mg oral tablet) 40 mg PO Daily Vitals: Last Updated 03/06/24 07:27 Weights: Last Updated 03/06/24 07:27 Date Temp Pulse BP RR SpO2 FIO2 Date Wt(kg) Wt(lb) 03/06 07:27 36.0 176/85 16 99 03/06 07:27 112.7 248 03/06 07:27 112.7 248 24 Hr Tmax: 36.0 at 03/06 07:27 Initial Wt: 03/06 112.7 kg 248 lb Physical Exam: (relevant to the procedure, including heart and lung evaluation) General: lying comfortably in bed without any acute distress HEENT: PERRLA, EOMI, no scleral icterus Neck: no JVD, no carotid bruits CV: regular rhythm, normal rate, normal S1, S2, 3/6 systolic ejection murmur best heard in RUSB Lungs: clear to auscultation bilaterally, no wheezing, no rhonchi Abd: soft, non-tender, non-distended, normoactive BS Ext: 2+ distal pulses, no edema, warm Neuro: non focal, CN II-XII intact Studies of Lab Results (relevant to the procedure): CT Angio Chest FINDINGS: CTA: Diminutive persistent left SVC draining [...] 47.9mm Maximum descending diameter: 33 x 32mm CHEST Heart and Great vessels: No pericardial effusion. Cardiomegaly with mild coronary artery calcification. Echo Stress, Exercise 10/20/2023 Summary 1. Negative Exercise Stress ECG and [...] po prior to leaving the stress lab. ASSESSMENT: _ 63 y/o female with medical history of aortic aneurysm (5cm), bicuspid aortic valve with severe stenosis, melanoma, GERD, stroke, HTN and RUBEN who presents today for LHC and coronary angiogram as part of her preop work up for AVR + LAAL + ascending aorta repair. The risks and benefits from the procedure were explained to the patient who expresses understanding and agrees to proceed with the plannedprocedures. - Will proceed with planned LHC + Coronary angiogram ATTENDING ATTESTATION: I personally saw and examined the patient and agree with the fellow's note. I have amended and/or appended as necessary. I discussed the risk and benefits with the patient, and reviewed the case details with the fellow. Informed consent was obtained and included in the chart. Adelfo Segura MD, FAC, [facility] Interventional Cardiology [facility] [place] Pager: [phone] Electronic Signature on File Electronically Reviewed/Signed by: Johnnie Rao MD Author Signature Dt/Tm:03/06/2024 08:06 AM Resident [facility] [place] Electronically Reviewed/Signed by: Conor Diaz Signature Dt/Tm: 03/06/2024 08:11 AM Division of Interventional Cardiology [facility] Anesthesia records * Services, CPDI: PERFORM Event Display: Sedation & Analgesia Record Authored Date: [id number] Patient Care team information Care Team Personnel Name: Debby Bravo Position: HIS Supervisor_P Member Role: HIS Lifetime Name: MD Kalen, Pretty Position: Physician - Family Med Member Role: Primary Care Provider Address: [facility] Care Team Related Persons Name: JIMBO HOLGUIN Name: SELWYN HOLGUIN Name: LUCIA HOLGUIN
--- OUTSIDE RECORDS SUMMARY | 2024-04-13 23:47 | External Medical Summary | Continuity of Care Document ---
Author Name Unknown Organization [facility] 1850 [facility] [address] [place] [phone] Care Team Providers Care Marketing Operations Assistant Name Role Phone Pretty Higuera Primary Care Physician [phone] Encounter [facility] [id number] Date(s): 12/21/23 - 12/21/23 [facility] [address] [facility] 207 [facility] 1850 [facility] [place] [place] [address] [place] [address] [phone] Encounter Diagnosis Stroke(Discharge Diagnosis) - 12/21/23 HTN (hypertension)(Discharge Diagnosis) - 12/21/23 Aortic valve stenosis(Discharge Diagnosis) - 12/21/23 Discharge Disposition: Home or Self Care Attending Physician: MD Siddiqi Jonathan D Allergies, Adverse Reactions, Alerts Substance Criticality Severity Reaction Reaction Severity Status lisinopril 1 Active 1Cough Assessment and Plan Extracted from: Title:Office Visit Note Author:MD Jody, Meghna Date:12/21/23 1.Stroke Acute, uncomplicated illness/injury Goal:Resolution Data: Plan: - She has already undergone mechanical thrombectomy at [facility], after which she recovered fromher motor deficit. -Expressive aphasia present: Speech therapy+ Neurology consult - HTN : under control with Olmesartan( recently increased dose) - TakingAspirin after stroke: continue aspirin - Statin was changed from rosuvastatin to atorvastatin 80 mg after stroke: continue atorvastatin. -She has already set up appointment with Speech/ Physical/Occupational therapy. -Orderedneurology referral for her expressive aphasia and post stroke management. - Added aspirin/ atorvastatin in current medication 2.HTN (hypertension) Chronic condition, stable Goal:Resolution Data: Plan: -Hypertension - current medicationOlmesartan 40 mg (recently increased dose):adherent to present regimen -no ADEs reported by the patient_ - Smoking and caffeine history reviewed 3.Aortic valve stenosis Chronic condition, stable Goal:Resolution Data: Plan: -Cardiology has planned for aortic valve procedure for , however date is not fixed yet. Currently under Metoprolol 25 mg Qhs. - Recommended earlier appointment with cardiology, given the fact that could be her predisposing factor for this stroke episode and fixing that airam than later could prevent further episodes in future. -Sheanappointment with cardiac on January 10, recommendedto discussfurther after stroke episodes. -She understands and agrees with our plan. Immunizations Given and Recorded Vaccine Date Status [...] Daily, Disp# 30 tab, Refills: 3, Pharmacy: [id number] Start Date: 12/21/23 Stop Date: 04/19/24 Status: Ordered atorvastatin 80 mg oral tablet Start: 12/21/23 9:45:00 AM EDT, 1 tab, PO, Daily, Disp# 30 tab, Refills: 3, Pharmacy: [id number] Start Date: 12/21/23 Stop Date: 04/19/24 Status: Ordered metoprolol succinate 25 mg oral tablet, extended release Start: 11/04/23 3:59:00 PM EDT, 1 tab, PO, qhs, Disp# 90 tab, Refills: 3, Pharmacy: [id number] Start Date: 11/04/23 Status: Ordered olmesartan 40 mg oral tablet Start: 12/13/23 11:34:00 AM EDT, 1 tab, PO, Daily, Disp# 90 tab, Refills: 3, Pharmacy: [id number] Start Date: 12/13/23 Status: Ordered RSV vaccine preF3, recombinant preservative-free intramuscular injection Start: 10/31/23 9:59:00 AM EDT, 0.5 mL, IM, ONCE, Disp# 0.5 mL, Pharmacy: [id number] Start Date: 10/31/23 Status: Ordered Sutab oral tablet Start: 11/04/23 4:40:00 PM EDT, See Instructions, Disp# 24 tab, Refills: 0, As directed from writtenendoscopy directions, Pharmacy: [id number] Start Date: 11/04/23 Status: Ordered Mental Status 12/21/23 Barriers to Learning one year None evide nt Mandatory Health Literacy Documentation Yes Health Literacy Communication Barriers N ever Primary Language Spanish Problem List Condition Confirmation Course Effective Dates [...] inical Service Informant HTN (hypertension) Discharge Diagnosis 12/21/23 Non-Specified Aortic valve stenosis Discharge Diagnosis 12/21/23 Non-Specified Stroke Discharge Diagnosis 12/21/23 Non-Specified Procedures Procedure Date Related Diagnosis Body [...] oldest [Reference Range]: 1 Height 169 cm (12/21/23 8:50 AM) Patient Weight 120.5 kg (12/21/23 8:50 AM) Body Mass Index 42.19 kg/m2 (12/21/23 8:50 AM) Temperature [36.5-37.9 DegC] 36.6 DegC (12/21/23 8:50 AM) Heart Rate 79 bpm (12/21/23 8:50 AM) Respiratory Rate 16 br/min (12/21/23 8:50 AM) Blood Pressure 120/82mmHg (12/21/23 8:50 AM) Cuff Pulse Pressure 38 mmHg (12/21/23 8:50 AM) Social History Social History Type Response Smoking Status Never smoked cigaret mark Sex Sex Representation Female (finding) FCM Outpt Note * MD Valverde Mark B: MODIFY MD Valverde Mark B: MODIFY Event Display: FCM Outpt Note Authored Date: [id number] Chief Complaint Hospital f/u History of Present Illness 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 She needs neurology follow up. [facility], under outpatient rehab currently. Stroke: -On December 14 she became unresponsive in the car from [place] to back here on; paralysis of right -Current symptom: problem in speechbutCan walk /Can do her all daily activity -Her daughter says there was a large clot in left side of brain( data NA -Removed clot via femoral approach ( Mechanical Thrombectomy) -Meds: Baby aspirin/ Switched her from rosuvastatin to atorvastatin 80 mg -Dysphagia level 6 -Swallowing soft foods, no choking episodes -Facing problem in expressionofwhat she want to tell. 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 After stroke; reached back to cardio: plan to perform holterfor 1 month and see. Cardiac appointment due soon. Physical Exam Vitals & Measurements T:36.6C HR:79(Monitored) RR:16 BP:120/82 SpO2:97% HT:169cm WT:120.500kg(Dosing) WT:120.5kg BMI:42.19 PHQ2 Data(Data Documented on:12/21/2023 08:49) Emotional health assessment NEGATIVE General: Alert and oriented, No acute distress HEENT: Normocephalic,moist oral mucosa Cardiovascular: Normal rate, Regular rhythm ,Murmur systolic + Respiratory:Lungs are clear to auscultation, Respirations are non-labored, Breath sounds are equal Musculoskeletal:Normal range of motion,normal strength in BL UL and LL Neurologic:Problemin speech noted/ Can'tprotrudetongueor blow cheeks/can't openmouthfully, cant seeuvula Integumentary: Warm, Dry, [place]. Psych: Mood-affect congruence. Reports no SI/HI. Speech is of normal pace and content Assessment/Plan 1.Stroke Acute, uncomplicated illness/injury Goal:Resolution Data: Plan: - She has already undergone mechanical thrombectomy at [facility], after which she recovered fromher motor deficit. -Expressive aphasia present: Speech therapy+ Neurology consult - HTN : under control with Olmesartan( recently increased dose) - TakingAspirin after stroke: continue aspirin - Statin was changed from rosuvastatin to atorvastatin 80 mg after stroke: continue atorvastatin. -She has already set up appointment with Speech/ Physical/Occupational therapy. -Orderedneurology referral for her expressive aphasia and post stroke management. - Added aspirin/ atorvastatin in current medication 2.HTN (hypertension) Chronic condition, stable Goal:Resolution Data: Plan: -Hypertension - current medicationOlmesartan 40 mg (recently increased dose):adherent to present regimen -no ADEs reported by the patient_ - Smoking and caffeine history reviewed 3.Aortic valve stenosis Chronic condition, stable Goal:Resolution Data: Plan: -Cardiology has planned for aortic valve procedure for , however date is not fixed yet. Currently under Metoprolol 25 mg Qhs. - Recommended earlier appointment with cardiology, given the fact that could be her predisposingfactor for this stroke episode and fixing that airam than later could prevent further episodes in future. -Sheanappointment with cardiac on January 10, recommendedto discussfurther after stroke episodes. -She understands and agrees with our plan. Attestation I saw the patient and confirmed the carlos portions of the history and physical exam and agree with the above impression and plan. 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 Motor function has largely returned. Speech remains blunted--able to write to communicate. Works at [employer]. Daughter in town to help. Needs neuro/cards follow up. On 81ASA for anticoag. Is s/p thrombectomy. Ultimately needs Ao valve surgery. Exam with 4/6 Ao root systolic murmur. Able to move R side. Speech is limited. Able to write to communicate in short sentences. Referrals placed. Will follow from primary care perspective. BP meds noted Problem List/Past Medical History Ongoing Adult BMI [...] 07/24/2015Mammogram| Service Date: 07/17/2012 Lithotripsy D&C Medications aspirin(aspirin 81 mg oral delayed release tablet), 81 mg= 1 tab, PO, Daily, 3 refills atorvastatin(atorvastatin 80 mg oral tablet), 80 mg= 1 tab, PO, Daily, 3 refills magnesium sulfate/potass Cl/sodium sulf(Sutab oral tablet), [...] law degree Exercise - Does not exercise Home/Environment- Comments: 3 kids - one local, other in [place] and one in [place] Grew up around [place]. in [place] since 1983 Nutrition/Health - Low Risk Other- Comments: never had colo. last td - ? >10yrs ago Sexual - No Risk Substance Abuse - No Risk Tobacco - Denies Tobacco Use Family History Breast cancer: MGM. Hypertension: Father. Skin cancer: Sister and Brother. Stroke: Father. Type II diabetes mellitus: Father. Health Status Family Member(s) Immunizations Vaccine Date PxyarpQWZR-XiX-1 (COVID-19) mRNA BNT-162b2 vax 05/09/2021 Recorded SARS-CoV-2 [...] due11/20/23and every 1year Due Adult COVID-19 Vaccination due12/21/23Unknown Frequency Adult Social Determinants of Health Screening due12/21/23Unknown Frequency Colorectal Cancer Screening due12/21/23Unknown Frequency Falls Plan of Care due12/21/23Unknown Frequency Osteoporosis Screening due12/21/23One-time only Pneumococcal Vaccine Older Adults due12/21/23One-time only Satisfied(in the past 1 year) Satisfied Body Mass Index on12/21/23.Satisfied by ALYSSA Pettit [place] Hepatitis C Screening on11/04/23.Satisfied by Contributor_system, [facility] Electronic Signature on File Electronically Reviewed/Signed by: Meghna Vera MD Author Signature Dt/Tm:12/21/2023 08:37 PM Resident Department of Family Medicine Electronically Reviewed/Signed by: MD Sly Melgar Signature Dt/Tm: 12/21/2023 09:12 PM Department of Family Medicine [place] Patient Care team information Care Team Personnel Name: Debby Bravo Position: HIS Supervisor_P Member Role: HIS Lifetime Name: MD Kalen, Pretty Position: Physician - Family Med Member Role: Primary Care Provider Address: [address] [place] [address] Care Team Related Persons Name: JIMBO HOLGUIN Name: SELWYN HOLGUIN Name: LUCIA HOLGUIN"
--- OUTSIDE RECORDS SUMMARY | 2024-04-13 23:47 | External Medical Summary | Continuity of Care Document ---
Author Name Unknown Organization [facility] [address] [place] [address] DAVID CARRASCO [id number] Care Team Providers Care Command And Control Systems Integrator Name Role Phone KalenGuillermoPretty Primary Care Physician [phone] [facility] [id number] Date[facility]s): 02/14/24 - 02/14/24 [facility] 600 [facility] [place] [address], [address], [address] [place] [address] [phone] Encounter Diagnosis Body mass index [BMI] 39.0-39.9, adult(Discharge Diagnosis) - 02/14/24 Aortic stenosis(Discharge Diagnosis) - 02/14/24 Discharge Disposition: Home or Self Care Attending Physician: MD Leena, [facility] S Allergies, Adverse Reactions, Alerts Substance Criticality [...] Daily, Disp# 30 tab, Refills: 3, Pharmacy: [id number] Start Date: 12/21/23 Stop Date: 04/19/24 Status: Ordered atorvastatin 80 mg oral tablet Start: 12/21/23 9:45:00 AM EDT, 1 tab, PO, Daily, Disp# 30 tab, Refills: 3, Pharmacy: [id number] Start Date: 12/21/23 Stop Date: 04/19/24 Status: Ordered metoprolol succinate 25 mg oral tablet, extended release Start: 11/04/23 3:59:00 PM EDT, 1 tab, PO, qhs, Disp# 90 tab, Refills: 3, Pharmacy: [facility] Start Date: 11/04/23 Status: Ordered olmesartan 40 mg oral tablet Start: 12/13/23 11:34:00 AM EDT, 1 tab, PO, Daily, Disp# 90 tab, Refills: 3, Pharmacy: [id number] Start Date: 12/13/23 Status: Ordered RSV vaccine preF3, recombinant preservative-free intramuscular injection Start: 10/31/23 9:59:00 AM EDT, 0.5 mL, IM, ONCE, Disp# 0.5 mL, Pharmacy: [id number] Start Date: 10/31/23 Status: Ordered Sutab oral tablet Start: 11/04/23 4:40:00 PM EDT, See Instructions, Disp# 24 tab, Refills: 0, As directed from writtenendoscopy directions, Pharmacy: [id number] Start Date: 11/04/23 Status: Ordered Mental Status 02/14/24 Barriers to Learning one year None evide nt Mandatory Health Literacy Documentation Yes Health Literacy Communication Barriers N ever Primary Language Yi Problem List Condition Confirmation Course Effective Dates [...] Dates Health Status Cl inical Service Informant Body mass index [BMI] 39.0-39.9, adult Discharge Diagnosis 02/14/24 Non-Specified Aortic stenosis Discharge Diagnosis 02/14/24 Non-Specified Procedures Procedure Date Related Diagnosis Body [...] obstructive sleep apnea 5? 2009 6normal Results Orders for Microbiology Reports Name Date Nasal Culture (THROAT/NASAL CULTURE) 01/22 09/13 Microbiology Reports TEST:Thr/Nasal.Cx STATUS:Auth (Verified) BODY SITE: SOURCE:Nasal COLLECTED DATE/TIME:02/14/24 4:03 PM Culture NO STAPHYLOCOCCUS AUREUS ISOLATED Vital Signs Most recent to oldest [Refer ence Range]: 1 2 Height 171.2 cm 1 (02/14/24 3:09 PM) Patient Weight 116.4 kg 2 (02/14/24 3:09 PM) Body Mass Index 39.71 kg/m2 (02/14/24 3:09 PM) Temperature [36.5-37.9 DegC] 36.7 DegC (02/14/24 3:09 PM) Heart Rate 70 bpm (02/14/24 3:09 PM) Respiratory Rate 16 br/min (02/14/24 3:09 PM) Blood Pressure 162/96mmHg 3 (02/14/24 3:17 PM) 173/96mmHg 4 (02/14/24 3:09 PM) Cuff Pulse Pressure 66 mmHg (02/14/24 3:17 PM) 77 mmHg (02/14/24 3:09 PM) BP Location # 1 Right Arm, Other: dinamap, right lower arm (02/14/24 3:17 PM) Left Arm, Other: dinamap (02/14/24 3:09 PM) 1Result Comment: w/shoes 2Result Comment: w/shoes 3Result Comment: both bps highlighted on paper for doc to see 4Result Comment: patient states she feels fine Social History Social History Type Response Smoking Status Never smoked cigaret mark Sex Sex Representation Female (finding) History and physical note * MD Leena, Tess S: PERFORM Event Display: . Authored Date: [id number] Chief Complaint denies chest pain, sob, palpitations, and no swelling History of Present Illness Today, I had the pleasure of meeting Dhaval Strong in the office for evaluation of her aortic valve disease. The patient is a very pleasant 63 year- old woman who`s accompanied to this visit by carmen. She recently suffered a stroke with a residual aphasia but she can phonate simple words. Both her and the daughter provided the history. She stated that she was in the middle of working up her aortic valve disease when she suffered the stroke. She was treated with systemic thrombolytics and thrombectomy. She has been working with a speech pathologist and her aphasia has been improving. She currently lives with her daughter and her family. 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 The source of her stroke remains unknown. She states that she wore heart monitors which didn't`t reveal afib. She also states that she never had carotid ultrasounds. She states that her brother has an aneurysm and bicuspid aortic valve. She also mentioned that atrial fibrillation runs in her family. Her echocardiogram showed severe aortic valve stenosis, possibly bicuspid aortic valve with preserved ventricular function. Atrial septum appeared intact. 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 Review of Systems 14 point review of systems is negative except for HPI Physical Exam Vitals & Measurements T:36.7C HR:70(Monitored) RR:16 BP:162/96 SpO2:99% HT:171.2cm WT:116.4kg WT:116.400kg(Dosing) BMI:39.71 Vital signs as noted above. Constitutional:AAOx3,pleasant and cooperative,ambulates independently, not inacute distress. Skin:Warm and dry to touch.No cyanosis or jaundice. Head:Normocephalic and atraumatic. Eyes:PERRLA, EOM intact, conjunctiva and lids unremarkable. No redness or jaundice. Ears, Nose and Throat:No gross abnormalities.No pallor or cyanosis. Neck:No thyromegaly.No JVD. Chest:Symmetric in inhalation and exhalation.No use of accessory muscles. Heart:RRR Abdomen:Soft, nontender. Upper/LowerExtremities: warm and well perfused. Nodeformities,clubbing,cyanosis,erythema. Neurologic:AAOx3,appropriate affect, follows commands. No gross motor or sensory deficits noted. Diagnostic Results I reviewed her echocardiogram and CTA. Assessment/Plan Aortic stenosis Dhaval has symptomatic severe aortic valve stenosis and ascending aorta aneurysm. I think she`ll benefit from surgical repair. During surgery, we`d be looking for PFO on DAVINA and close it if present. We may also perform prophylactic afib ablation and LAAL. In preparation for surgery, she`ll need acardiac cath and dental clearance. I had a lengthy discussion with the patient and her daughterabout the rationale for aortic valve replacement and ascending aorta repair, steps of the operation and the risks involved. I explained the operation involves a midline sternotomy, institution of cardiopulmonary bypass followed by replacing the aortic valve with a bioprosthetic (tissue) valve and ascending aorta repair. I also explained all the risks involved with the operation including , stroke, cruz-operative myocardial infarction, heart block requiring a pacemaker, excessive mediastinal bleeding which may require re-operation for hemostasis, infection including wound infection affecting the sternum, which may require f urther surgical intervention, recurrent infection on the replaced valve, liver or kidney injury that may require replacement therapy. The patient understands all these risks and anticipates that any of these complications may occur. Body mass index [BMI] 39.0-39.9, adult Problem List/Past Medical History Ongoing Adult BMI [...] 3 kids - one local, other in [place] and one in [place] Grew up around [employer]. in [place] [employer] since 1983 Nutrition/Health - Low Risk Other [...] due11/20/23and every 1year Due Adult COVID-19 Vaccination due02/14/24Unknown Frequency Adult Social Determinants of Health Screening due02/14/24Unknown Frequency Colorectal Cancer Screening due02/14/24Unknown Frequency Falls Plan of Care due02/14/24Unknown Frequency Osteoporosis Screening due02/14/24One-time only Pneumococcal Vaccine Older Adults due02/14/24One-time only Satisfied(in the past 1 year) Satisfied Body Mass Index on02/14/24.Satisfied by JV Velasquez [place] Hepatitis C Screening on11/04/23.Satisfied by Contributor_system, [facility] Electronic Signature on File CC: LUCAS Cardenas [address] [id number] CC: Jd Cole DO [address] [address] CC: Pretty Higuera MD [address] [place] [address] Electronically Reviewed/Signed by: Tess Stern MD Author Signature Dt/Tm:02/14/2024 05:10 PM Division of Cardiothoracic Surgery [facility] Patient Care team information Care Team Personnel Name: Debby Bravo Position: HIS Supervisor_P Member Role: HIS Lifetime Name: MD Kalen, Pretty Position: Physician - Family Med Member Role: Primary Care Provider Address: [address] [place] [address] [place] Care Team Related Persons Name: JIMBO HOLGUIN Name: SELWYN HOLGUIN Name: LUCIA HOLGUIN"
[2024-04-14 06:27] LABS: Hematocrit (blood only) 31.5 % (37.0-47.0); Hemoglobin 10.2 g/dl (12.0-16.0); Mean Corpuscular Hemoglobin 27.9 pg (25.0-34.0); Mean Corpuscular Hgb Conc 32.4 g/dL (32.0-36.0); Mean Corpuscular Volume 86.1 fL (80.0-100.0); Mean Platelet Volume 9.4 fL (9.4-12.4); Platelet Count 315 K/uL (130-400); RDW Coefficient of Variation 14.6 % (11.5-14.5); RDW Standard Deviation 45.8 fL (36.4-46.3); Red Blood Count 3.66 M/uL (4.20-5.40); White Blood Count 9.09 K/ul (4.8-10.8)
[2024-04-14 06:41] LABS: Albumin Globulin Ratio 0.9 (0.9-2); Albumin Level 3.3 gm/dl (3.4-5.0); BUN Creatinine Ratio 24.4 (10-20); Bilirubin,Total 0.5 mg/dl (0.2-1.0); Calcium 8.9 mg/dl (8.6-10.3); Creatinine Clr Calc Pharmacy 51.3 ml/min; Globulin 3.5 gm/dl (2.5-4.0); Potassium 3.7 mmol/L (3.5-5.1); Total Protein 6.8 gm/dl (6.0-8.3)
[2024-04-14] MEDS ORDERED: LOSARTAN POTASSIUM 50 MG TAB PO SCH (09:00)
--- NOTE | 2024-04-14 18:08 | Hospitalist Progress Note ---
Date of Service April 14, 2024 Assessment & Plan (1) Constipation: Plan: Presented with rectal pain in setting of significant constipation. Bowel regimen at home unsuccessful - Recent open heart surgery at [facility] ~3 weeks ago. Patient reports no BM since surgery - CT A/P showed moderate rectal stool - Multiple bowel movements; Well-tolerating regular diet - Bowel regimen adjusted: Scheduled MiraLax PRN Scheduled Senna daily PRN Suppository x 2 Milk of molasses enema x 1 - Encourage po fluids - Goal is 1-2 soft formed BM daily (2) IFRAH (acute kidney injury): Plan: Prior normal creatinine, with significant elevation at 2.37 on admission - Likely pre-renal IFRAH in the setting of decreased PO intake secondary to constipation - UA with renal epithelial cells --> urine cytology NEGATIVE for high-grade urothelial carcinoma - Cr improved to 1.23 - Encourage PO fluids - Avoid nephrotoxic agents; continue to hold Olmesartan - Monitor BMP with AM labs (3) Asymptomatic bacteriuria: Plan: UA likely contaminated as more epis than WBCs. 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 Will HOLD now due to IFRAH (6) Hypertension: Plan: HOLD olmesartan 40 mg daily for IFRAH Confirmed with daughter that Toprol XL 25 mg was DISCONTINUED on discharge from [facility] Plan Adjusted bowel regimen CODE STATUS: Full code Admission and Anticipated Discharge Date Admission Date: April 12, 2024 Supervising Physician Co-Signing Physician Notes DAVID Supervision Note: I did not personally see or examine the patient today, but I verified all carlos points of DAVID Ayoub's assessment and plan with the following exception s/additions: none Subjective Patient seen and evaluated at bedside. She reports multiple bowel movements. She notes at first it was liquid consistency, but has become more formed. She denies the rectal spasming she experienced yesterday. Denies abdominal pain, nausea, or vomiting. Denies chest pain, palpitations, shortness of breath. We discussed her home meds and her daughter sent in a photo of her discharge medications from her hospitalization at [facility]. Discussed her IFRAH is improving. No additional complaints or concerns at this time. Physical Exam Physical Exam: General: No acute distress, nondiaphoretic, well-developed, well-nourished. Skin: The skin was without rashes, erythema, edema, or bruising. Cardiac: Regular rate and rhythm without murmurs gallops or rubs. Pulm: Clear to auscultation bilaterally without wheezes, rales or rhonchi. No respiratory distress. 97% on room air. Abdominal: Soft, nontender, nondistended. Bowel sounds present. : Irizarry catheter draining katarzyan colored urine. Neuro: A&O x3. No focal neurological deficits. Results & Data Results & Data Vital Signs (Past 12 Hours) Vital Signs Temp Pulse Resp BP Pulse Ox O2 Del Method 04/14/24 14:10 97.9 F 84 18 131/85 97 Room Air 04/14/24 09:32 97.9 F 79 18 135/83 97 Room Air Laboratory Results Reviewed CBC Reviewed CMP Reviewed urine culture PG Care Time/CCT Total # of Minutes Spent Total Time Spent with Patient: Total time spent is greater than 50% in coordination of care (as documented) at patient's floor/unit and/or counseling patient: Coding Level of Care Code 92299 SUB INP/OBS CARE 2/35MIN Diagnoses Constipation K59.00 IFRAH (acute kidney injury) N17.9 Asymptomatic bacteriuria R82.71 Heart valve replaced Z95.2 History of CVA with residual deficit I69.30 Hypertension I10 Hypertension type: unspecified (6) Hypertension Hypertension type: unspecified Qualified Code(s): I10 - Essential (primary) hypertension
[2024-04-14] MEDS ORDERED: SENNA 8.6 MG TAB PO SCH (18:15)
[2024-04-14] MEDS: MELATONIN 3 MG TAB PO PRN (21:17)
[2024-04-14] MEDS: LIDOCAINE 5% OINT 30 GM TUBE EXT PRN (23:35)
[2024-04-15] MEDS: POLYETHYLENE (MIRALAX) 17 GM PACK PO PRN (01:13)
[2024-04-15] MEDS: SENNA 8.6 MG TAB PO PRN (04:21)
[2024-04-15 07:34] LABS: BUN Creatinine Ratio 17.7 (10-20); Calcium 8.9 mg/dl (8.6-10.3); Creatinine Clr Calc Pharmacy 50.9 ml/min; Magnesium 1.8 mg/dl (1.7-2.4); Potassium 3.7 mmol/L (3.5-5.1)
[2024-04-15] MEDS: MAGNESIUM HYDROXIDE SUSP 30 ML UDC PO PRN (08:11)
[2024-04-15 13:45] VITALS: BP 143/87; PULSE 90; TEMP 97.3; O2SAT 98
--- NOTE | 2024-04-15 14:17 | Discharge Summary ---
Discharge Summary Date of Service April 15, 2024 Principal Dx & Hospital Course #1 = Principal Diagnosis (1) Constipation: Presented with rectal pain in setting of significant constipation. Bowel regimen at home unsuccessful - Recent open heart surgery at [facility] ~3 weeks ago. Patient reports no BM since surgery - CT A/P showed moderate rectal stool - Aggressive bowel regimen provided while hospitalized - Multiple bowel movements; Well-tolerating regular diet - Encourage po fluids - Recommend continued bowel regimen at home with goal of 1-2 soft formed BM daily (2) IFRAH (acute kidney injury): Prior normal creatinine, with significant elevation at 2.37 on admission - Likely pre-renal IFRAH in the setting of decreased PO intake secondary to constipation - UA with renal epithelial cells --> urine cytology NEGATIVE for high-grade urothelial carcinoma - Cr improved to 1.24 on day of discharge - Encourage PO fluids - Avoid nephrotoxic agents (3) Asymptomatic bacteriuria: UA likely contaminated as more epis than WBCs. 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 Provided aggressive bowel regimen. Recommend optimizing bowel regimen at home with goal of 12 formed bowel movements daily. Suspect IFRAH in setting of decreased oral intake. Improved and nearly at baseline. Recommend PCP follow-up appointment in 1-2 weeks. Medication Changes From Visit Continue bowel regimen Admission HPI Per Admitting Provider 63 y/o female with a PMHx of CVA with subsequent expressive aphasia and recent open heart surgery with aortic valve replacement presents with abdominal pain. Patient having rectal pain/discomfort and significant constipation. Has not had a BM in 10 days. Has been taking miralax and colace without improvement in symptoms. No actual abdominal pain. No nausea or vomiting. No dysuria or urinary symptoms. No fevers or chills. No CP or SOB. No calf pain or swelling. Has lost about 7 pounds since having her aortic valve replaced. Admission Exam Per Admitting Provider Gen: well appearing patient in NAD HEENT: AT NC MMM Resp: CTAB no wheezing no increased work of breathing CV: RRR no m/r/g clinically well perfused, no edema, no calf tenderness Abd: +BS, soft, non-tender, non-distended MSK: no obvious deformities Skin: no rashes or bruising Neuro: alert and oriented Psych: appropriate mood and affect Discharge Exam General: No acute distress, nondiaphoretic, well-developed, well-nourished. Skin: The skin was without rashes, erythema, edema, or bruising. Cardiac: Regular rate and rhythm without murmurs gallops or rubs. Pulm: Clear to auscultation bilaterally without wheezes, rales or rhonchi. No respiratory distress. 98% on room air. Abdominal: Soft, nontender, nondistended. Bowel sounds present. Neuro: A&O x3. No focal neurological deficits. Discharge Plan Discharge Items Patient Disposition: Home - Self-Care Reason For Visit: IFRAH Discharge Diagnosis: Constipation, IFRAH Activity: Resume your previous activity Non-emergency contact: Primary Care Provider Call non-emergency contact if: you have any medication questions and your symptoms worsen Follow-up/Referrals: Pretty Higuera MD [Primary Care Provider] - (Follow-up in 1-2 weeks) Diet: Regular Addtl Attending Provider Instructions: Agueda, You were admitted to the hospital due to constipation and an acute kidney injury (IFRAH). I suspect your IFRAH was due to decreased oral intake due to your constipation. Your kidney function has improved during your hospitalization and is nearly back to baseline. You were provided with an aggressive bowel regimen, and your constipation has resolved. Upon discharge from the hospital: * Continue your bowel regimen as needed. You can get stool softeners/laxatives [id number], so no prescription is required. You can use MiraLAX, Colace, or Senna. * Continue your other home medications as prescribed. * Follow-up with your PCP in 1-2 weeks. Please return to the hospital if you experience any of the following: Severe diarrhea or constipation, unable to tolerate oral intake, lightheadedness, dizziness, passing out, confusion, chest pain, shortness of breath, or any other symptoms concerning for you. It was a pleasure taking care of you while you were in the hospital, Noemi Ayoub PA-C Pending Studies at Discharge: No Stand-Alone Forms: My [facility], Smoking Cessation Medications and DC Order Prescriptions: Continued atorvastatin 80 mg tablet 80 mg PO HS aspirin 81 mg tablet,delayed release (DR/EC) 81 mg PO QAM pantoprazole 40 mg tablet,delayed release (DR/EC) 40 mg PO QAM multivitamin Tablet 1 tab PO HS amiodarone 200 mg tablet 200 mg PO DAILY Held olmesartan 40 mg tablet 40 mg PO DAILY Hold Instructions: Resume on 04/17/24. Discharge Orders: Discharge Order (Routine); Ordered 04/15/24 Ordered By: Noemi Ayoub Admission Data Admit Date/Time: 04/12/24 23:51 Attending Provider: Irais Polk Admit Provider: Sonya Jaimes Primary Care Provider: Pretty Higuera Other Providers: Joe Ramey Other Interventions: Discharge Summary Assessment (RN) Last Done: 04/15/24 14:56 Hospital Stay Data Consultations 04/12/24 23:13 ED Decision to Admit Stat Diagnostic Imagining Performed 04/12/24 21:01 CT abd pelvis wo con Stat Pending Results Patient Have Any Pending Studies at Discharge: No Discharge Instructions Given to Patient (Per Discharging Provider) Agueda, You were admitted to the hospital due to constipation and an acute kidney injury (IFRAH). I suspect your IFRAH was due to decreased oral intake due to your constipation. Your kidney function has improved during your hospitalization and is nearly back to baseline. You were provided with an aggressive bowel regimen, and your constipation has resolved. Upon discharge from the hospital: * Continue your bowel regimen as needed. You can get stool softeners/laxatives [id number], so no prescription is required. You can use MiraLAX, Colace, or Senna. * Continue your other home medications as prescribed. * Follow-up with your PCP in 1-2 weeks. Please return to the hospital if you experience any of the following: Severe diarrhea or constipation, unable to tolerate oral intake, lightheadedness, dizziness, passing out, confusion, chest pain, shortness of breath, or any other symptoms concerning for you. It was a pleasure taking care of you while you were in the hospital, Noemi Ayoub PA-C Supervising Physician Co-Signing Physician Notes PA Supervision Note: I personally saw and examined the patient. I verified all carlos points and agree with DAVID Ayoub with the following exceptions and/or additions: S-Pt feeling much better, no abd pain, moving bowels O- Vitals reviewed Gen: [AAOx3, NAD] HEENT: [anicteric sclerae, EOMI] CV: [RRR no mgr nl S1S2,chest with incision healing, no erythema] Pulm: [CTAB no wcr] Abd: [+BS soft NT ND no masses or hernias] Ext: [no edema, 2+ DP pulses] A/P-63 yo female here with severe constipation, IFRAH, now much improved stable for dc to home Total Time Total Time Spent Total Time Spent (In Minutes): Greater than 30 minutes spent completing this discharge process including direct patient care, medication reconciliation, documentation, review of labs and images, and coordination of care. Coding Level of Care Code 03797 INP/OBS DISCH >30 MIN Diagnoses Constipation K59.00 IFRAH (acute kidney injury) N17.9 Asymptomatic bacteriuria R82.71 Heart valve replaced Z95.2 History of CVA with residual deficit I69.30 Hypertension I10 Hypertension type: unspecified
== END 2024-04-15 17:14 | disposition home or self-care (01) | DRG 683 ==
LOC: ED 20:21 → 3W 23:51 → SUATTDRO 23:51 → 3W 04-13 00:15